=== PATIENT | female | born 1990 | race American Indian/Alaskan Native ===

== ENCOUNTER 2016-08-02 12:49 | Outpatient (CLI) | payer MEDICAID ==
[2016-08-02] MEDS ORDERED: LACTATED RINGERS 500 ML IV ONE (15:56)
== END 2016-08-02 15:01 | disposition home or self-care (01) ==
LOC: LAB 12:49 → TRG 14:10 → LAB 15:01
PROVIDERS: ATTEND Obstetrics & Gynecology
DX: O36.0120 Maternal care for anti-D [Rh] antibodies, second trimester, not applicable or unspecified (principal); Z3A.27 27 weeks gestation of pregnancy
CPT/HCPCS: 86850; 86900; 86901; 96372; J2790

== ENCOUNTER 2016-08-16 16:32 | Inpatient (IN) | payer MEDICAID ==
--- NOTE | 2016-08-16 17:02 | History and Physical Report ---
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 Essential history is received a call from the [employer] office about above. Patient with nausea vomiting, history of diabetes and hypertension and noncompliance, oral history of elevated temperature no documentation. Review of clinic chart shows elevated blood pressures in the clinic with range ~ 130's-170's/70's-110's. 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 denies: smoking, alcohol abuse, prescription drug abuse, IV drug use - Obstetrical History Expected Date of Delivery: 10/26/16 Actual Gestation: 29 Week(s) 6 Day(s) : 3 Para: 1 Medications and Allergies Allergies Allergy/AdvReac Type Severity Reaction Status Date / Time No Known Allergies Allergy Unverified 08/02/16 14:48 Review of Systems Constitutional: no chills Cardiovascular: high blood pressure, no chest pain, no syncope, no lightheadedness, no shortness of breath, no dyspnea on exertion Respiratory: no shortness of breath, no dyspnea on exertion Gastrointestinal: nausea, vomiting, no abdominal pain, no diarrhea Genitourinary: no vaginal bleeding, no vaginal discharge, no leakage of fluid - Physical Exam Cardiovascular: Regular rate, Normal S1, Normal S2 Lungs: Positive: Clear to auscultation, Normal air movement Abdomen: Positive: normal appearance, soft. Negative: distention, tenderness, guarding, rigidity Genitourinary (Female): Positive: normal external genitalia Uterus: Positive: enlarged (EFW ~ 2500) Adnexa: both: normal Extremities: Positive: normal Results All other labs normal. Assessment and Plan A: 26 y/o at 29+6 with N/V -Cat 1 tracing Issues -DM 2 -Oral history of gastroparesis -CHTN -Obesity -Prior C-S # 1 -Desires tubal ligation -RH neg s/p Rhogam 08/02 Meds: -Labetalol 300mg BID -Insulin 36N32R/26N28R P: -Admit -Start 24-hour urine protein collection -Obtain HELLP labs -Will restart outpatient medications -Antiemetics -Obtain growth and BPP (last in M visit 1 week ago) -[facility] - Patient Problems (1) 29 to 30 weeks gestation of Current Visit: Yes Status: Acute (2) Hypertension affecting in third trimester Current Visit: Yes Status: Acute (3) Pregestational diabetes mellitus, modified White class B Current Visit: Yes Status: Acute (4) Maternal morbid obesity in third trimester, antepartum Current Visit: Yes Status: Acute
[2016-08-16] MEDS ORDERED: TYLENOL PO PRN (17:20)
[2016-08-16] MEDS ORDERED: SODIUM CHLORIDE FLUSH SYRINGE 10 ML IV PRN (17:20)
[2016-08-16] MEDS ORDERED: ZOFRAN IV PRN (17:20)
[2016-08-16] MEDS ORDERED: COLACE PO PRN (17:20)
[2016-08-16] MEDS ORDERED: APRESOLINE IV PRN (17:29)
[2016-08-16] MEDS ORDERED: D50W (25GM) IV PRN (17:43)
[2016-08-16] MEDS ORDERED: MAGNESIUM SULFATE 4GM/100ML 100 ML IV ONE (17:44)
[2016-08-16] MEDS ORDERED: MAGNESIUM SULFATE 40GM/1000ML 1,000 ML IV NR (18:00)
[2016-08-16] MEDS ORDERED: LACTATED RINGERS 1,000 ML IV SCH (18:00)
[2016-08-16] MEDS ORDERED: NORMODYNE IV PRN (18:29)
[2016-08-16] MEDS ORDERED: LACTATED RINGERS 1,000 ML ONE ×2 (19:00→19:11)
[2016-08-16 19:40] LABS: Amylase 153 units/L (27-131); Lipase 154 units/L (13-60)
[2016-08-16 19:44] LABS: Alanine Aminotransferase 16 units/L (7-56); Albumin 3.8 g/dL (3.9-5); Albumin/Globulin Ratio 0.9 %; Alkaline Phosphatase 119 units/L (35-129); Bilirubin,Total 1.2 mg/dL (0.1-1.2); Blood Urea Nitrogen 15 mg/dL (7-17); Calcium 10.1 mg/dL (8.4-10.2); Carbon Dioxide 14 mmol/L (22-30); Glucose 299 mg/dL (65-100); Potassium 3.9 mmol/L (3.6-5.0); Sodium 137 mmol/L (137-145); Total Protein 8.1 g/dL (6.3-8.2)
[2016-08-16 19:49] LABS: Anion Gap 32 mmol/L
[2016-08-16 19:52] LABS: Hematocrit 43.8 % (30.3-42.9); Hemoglobin 14.4 gm/dl (10.1-14.3); Mean Corpuscular HGB Conc 33 % (30-34); Mean Corpuscular Hemoglobin 28 pg (28-32); Mean Corpuscular Volume 86 fl (79-97); Platelet Count 313 K/mm3 (140-440); Red Blood Count 5.11 M/mm3 (3.65-5.03); Red Cell Distribution Width 13.7 % (13.2-15.2); White Blood Count 13.7 K/mm3 (4.5-11.0)
[2016-08-16] MEDS ORDERED: NORMODYNE PO SCH (22:00)
[2016-08-16] MEDS: ALUM-MAG HYDROX-SIMETH 200-200-20MG/5ML PO PRN (22:08)
[2016-08-16] MEDS: NORMODYNE PO SCH (22:09)
[2016-08-16] MEDS: INFUVITE IV SCH (22:28)
[2016-08-16] MEDS: LACTATED RINGERS IV SCH (22:28)
[2016-08-16] MEDS: REGLAN IV SCH ×2 (23:38→23:43)
[2016-08-16] MEDS: AMBIEN PO SCH (23:39)
[2016-08-16] MEDS: PHENERGAN PR SCH ×2 (23:40→23:42)
[2016-08-17] MEDS: PHENERGAN PR SCH ×2 (06:16→17:39)
--- NOTE | 2016-08-17 07:50 | Progress Note ---
Assessment and Plan A: 26 y/o at 30 wks with N/V -No N/V this AM -BPP 03/06 (08/16/16) Issues -DM 2 -Oral history of gastroparesis -CHTN -Obesity -Prior C-S # 1 -Desires tubal ligation -RH neg s/p Rhogam 08/02 -Elevated Amylase and Lipase - Likely due to N/V ??Pancreatitis unlikely Meds: -Labetalol 300mg BID -Insulin 36N32R/26N28R P: -Complete 24-hour urine protein -Continue present care - Patient Problems (1) 29 to 30 weeks gestation of Current Visit: Yes Status: Acute (2) Hypertension affecting in third trimester Current Visit: Yes Status: Acute (3) Pregestational diabetes mellitus, modified White class B Current Visit: Yes Status: Acute (4) Maternal morbid obesity in third trimester, antepartum Current Visit: Yes Status: Acute Subjective - Subjective Date of service: 08/17/16 Principal diagnosis: IUP at 30 wks, CHTN, DM 2 and N/V Interval history: Patient seen and examined, stable and doing better. Denies nausea vomiting this morning, sugar elevated but she was given apple juice in error BP at acceptable level Patient reports: new complaints, movement normal, no loss of fluid, no vaginal bleeding, no contractions Objective - Vital Signs Vital Signs: Vital Signs - 12hr 08/16/16 08/16/16 08/16/16 19:48 19:58 20:09 Pulse Rate 106 H 100 H 102 H Blood Pressure 187/106 170/90 147/95 O2 Sat by Pulse Oximetry 08/16/16 08/16/16 08/16/16 20:18 20:28 20:38 Pulse Rate 106 H 104 H 114 H Blood Pressure 152/96 157/96 145/90 O2 Sat by Pulse Oximetry 08/16/16 08/16/16 08/16/16 20:48 20:58 21:08 Pulse Rate 120 H 123 H 96 H Blood Pressure 143/89 144/89 148/94 O2 Sat by Pulse Oximetry 08/16/16 08/16/16 08/16/16 21:18 21:29 21:38 Pulse Rate 133 H 116 H 121 H Blood Pressure 159/111 184/120 204/131 O2 Sat by Pulse Oximetry 08/16/16 08/16/16 08/16/16 21:48 21:58 22:08 Pulse Rate 110 H 108 H 122 H Blood Pressure 214/132 218/118 212/116 O2 Sat by Pulse Oximetry 08/16/16 08/16/16 08/16/16 22:14 22:18 22:20 Pulse Rate 112 H 120 H 120 H Blood Pressure 185/106 167/101 167/101 O2 Sat by Pulse Oximetry 08/16/16 08/16/16 08/16/16 22:28 22:39 22:49 Pulse Rate 118 H 120 H 116 H Blood Pressure 173/105 148/102 163/102 O2 Sat by Pulse Oximetry 08/16/16 08/16/16 08/16/16 22:58 23:08 23:48 Pulse Rate 126 H 123 H 123 H Blood Pressure 158/99 163/101 155/95 O2 Sat by Pulse Oximetry 08/16/16 08/17/16 08/17/16 23:58 00:08 00:18 Pulse Rate 113 H 121 H 112 H Blood Pressure 139/88 146/77 135/77 O2 Sat by Pulse Oximetry 08/17/16 08/17/16 08/17/16 00:29 00:34 00:38 Pulse Rate 112 H 118 H 114 H Blood Pressure 123/73 119/64 O2 Sat by Pulse 98 98 Oximetry 08/17/16 08/17/16 08/17/16 00:39 00:44 00:48 Pulse Rate 110 H 120 H 122 H Blood Pressure 119/62 O2 Sat by Pulse 98 98 Oximetry 08/17/16 08/17/16 08/17/16 00:49 00:54 00:58 Pulse Rate 114 H 123 H 109 H Blood Pressure 133/78 O2 Sat by Pulse 98 98 Oximetry 08/17/16 08/17/16 08/17/16 00:59 01:04 01:09 Pulse Rate 113 H 120 H 117 H Blood Pressure O2 Sat by Pulse 98 98 97 Oximetry 08/17/16 08/17/16 08/17/16 01:10 01:14 01:16 Pulse Rate 110 H 112 H 115 H Blood Pressure 119/81 132/91 O2 Sat by Pulse 98 Oximetry 08/17/16 08/17/16 08/17/16 01:19 01:24 01:29 Pulse Rate 113 H 119 H 118 H Blood Pressure O2 Sat by Pulse 98 98 98 Oximetry 08/17/16 08/17/16 08/17/16 01:34 01:39 01:44 Pulse Rate 118 H 119 H 117 H Blood Pressure O2 Sat by Pulse 98 98 98 Oximetry 08/17/16 08/17/16 08/17/16 01:49 01:54 02:16 Pulse Rate 122 H 118 H 116 H Blood Pressure 118/70 O2 Sat by Pulse 98 98 Oximetry 08/17/16 08/17/16 08/17/16 02:24 02:29 02:35 Pulse Rate 123 H 117 H 124 H Blood Pressure O2 Sat by Pulse 99 100 98 Oximetry 08/17/16 08/17/16 08/17/16 02:40 02:45 02:50 Pulse Rate 123 H 121 H 120 H Blood Pressure O2 Sat by Pulse 99 99 99 Oximetry 08/17/16 08/17/16 08/17/16 02:55 03:00 03:05 Pulse Rate 120 H 116 H 119 H Blood Pressure O2 Sat by Pulse 99 99 99 Oximetry 08/17/16 08/17/16 08/17/16 03:10 03:15 03:20 Pulse Rate 131 H 114 H 121 H Blood Pressure 125/86 O2 Sat by Pulse 99 98 99 Oximetry 08/17/16 08/17/16 08/17/16 03:25 03:30 03:35 Pulse Rate 123 H 121 H 127 H Blood Pressure O2 Sat by Pulse 99 99 99 Oximetry 08/17/16 08/17/16 08/17/16 03:40 03:45 03:50 Pulse Rate 118 H 124 H 121 H Blood Pressure O2 Sat by Pulse 99 98 99 Oximetry 08/17/16 08/17/16 08/17/16 03:55 04:00 04:05 Pulse Rate 115 H 120 H 118 H Blood Pressure O2 Sat by Pulse 99 99 99 Oximetry 08/17/16 08/17/16 08/17/16 04:10 04:15 04:20 Pulse Rate 117 H 122 H 126 H Blood Pressure 132/88 O2 Sat by Pulse 99 98 98 Oximetry 08/17/16 08/17/16 08/17/16 04:25 04:30 04:35 Pulse Rate 117 H 121 H 121 H Blood Pressure O2 Sat by Pulse 99 99 99 Oximetry 01/08/17/16 08/17/16 04:40 04:45 04:50 Pulse Rate 116 H 114 H 119 H Blood Pressure O2 Sat by Pulse 99 98 98 Oximetry 08/17/16 08/17/16 08/17/16 04:55 05:00 05:05 Pulse Rate 112 H 121 H 118 H Blood Pressure O2 Sat by Pulse 98 98 98 Oximetry 08/17/16 08/17/16 08/17/16 05:10 05:15 05:20 Pulse Rate 113 H 112 H 113 H Blood Pressure 127/78 O2 Sat by Pulse 98 98 98 Oximetry 08/17/16 08/17/16 08/17/16 05:25 05:30 05:35 Pulse Rate 113 H 114 H 116 H Blood Pressure O2 Sat by Pulse 98 98 98 Oximetry 08/17/16 08/17/16 08/17/16 05:40 05:45 05:50 Pulse Rate 116 H 111 H 111 H Blood Pressure O2 Sat by Pulse 99 97 98 Oximetry 08/17/16 08/17/16 08/17/16 05:55 06:00 06:05 Pulse Rate 120 H 127 H 116 H Blood Pressure O2 Sat by Pulse 98 99 99 Oximetry 08/17/16 08/17/16 08/17/16 06:10 06:15 06:16 Pulse Rate 119 H 112 H 114 H Blood Pressure 139/86 O2 Sat by Pulse 99 98 Oximetry 08/17/16 08/17/16 08/17/16 06:20 06:25 06:27 Pulse Rate 112 H 114 H 114 H Blood Pressure O2 Sat by Pulse 98 97 92 Oximetry 08/17/16 08/17/16 08/17/16 07:06 07:11 07:15 Pulse Rate 110 H 109 H 108 H Blood Pressure 141/95 O2 Sat by Pulse 98 98 Oximetry 08/17/16 08/17/16 08/17/16 07:16 07:21 07:26 Pulse Rate 113 H 113 H 112 H Blood Pressure O2 Sat by Pulse 98 99 98 Oximetry 08/17/16 08/17/16 08/17/16 07:31 07:36 07:41 Pulse Rate 121 H 112 H 109 H Blood Pressure O2 Sat by Pulse 98 98 98 Oximetry - Exam Abdomen: Present: normal appearance, soft. Absent: distention, tenderness, guarding, rigidity Uterus: Absent: tenderness FHR: category 1 - Labs Labs: Abnormal Labs 08/16/16 08/16/16 08/16/16 18:54 18:54 19:11 WBC 13.7 H RBC 5.11 H Hgb 14.4 H Hct 43.8 H Lymph % (Auto) 12.7 L Seg Neutrophils % 85.3 H Seg Neutrophils # 11.7 H Chloride 95.0 L Carbon Dioxide 14 L Creatinine 0.5 L Glucose 299 H POC Glucose Magnesium Albumin 3.8 L Amylase 153 H Lipase 154 H 08/16/16 08/17/16 08/17/16 21:25 06:01 06:30 WBC RBC Hgb Hct Lymph % (Auto) Seg Neutrophils % Seg Neutrophils # Chloride Carbon Dioxide Creatinine Glucose POC Glucose 223 H 396 H Magnesium 5.2 H Albumin Amylase Lipase Laboratory Results - last 24 hr 08/16/16 08/16/16 08/16/16 18:54 18:54 18:54 WBC RBC Hgb Hct MCV MCH MCHC RDW Plt Count Lymph % (Auto) [place] % (Auto) Eos % (Auto) Baso % (Auto) Lymph # [place] # Eos # Baso # Seg Neutrophils % Seg Neutrophils # Sodium 137 Potassium 3.9 Chloride 95.0 L Carbon Dioxide 14 L Anion Gap 32 BUN 15 Creatinine 0.5 L Estimated GFR > 60 BUN/Creatinine Ratio 30.00 Glucose 299 H POC Glucose Calcium 10.1 Magnesium 1.9 Total Bilirubin 1.2 AST 23 ALT 16 Alkaline Phosphatase 119 Total Protein 8.1 Albumin 3.8 L Albumin/Globulin Ratio 0.9 Amylase 153 H Lipase 154 H Hepatitis A IgM Ab Hep Bs Antigen Hep B Core IgM Ab Hepatitis C Antibody Blood Type Antibody Screen Antibody Identification 08/16/16 08/16/16 08/16/16 19:11 19:11 19:11 WBC 13.7 H RBC 5.11 H Hgb 14.4 H Hct 43.8 H MCV 86 MCH 28 MCHC 33 RDW 13.7 Plt Count 313 Lymph % (Auto) 12.7 L [place] % (Auto) 2.0 Eos % (Auto) 0.0 Baso % (Auto) 0.0 Lymph # 1.7 [place] # 0.3 Eos # 0.0 Baso # 0.0 Seg Neutrophils % 85.3 H Seg Neutrophils # 11.7 H Sodium Potassium Chloride Carbon Dioxide Anion Gap BUN Creatinine Estimated GFR BUN/Creatinine Ratio Glucose POC Glucose Calcium Magnesium Total Bilirubin AST ALT Alkaline Phosphatase Total Protein Albumin Albumin/Globulin Ratio Amylase Lipase Hepatitis A IgM Ab -1 Hep Bs Antigen Non-reactive Hep B Core IgM Ab Non-reactive Hepatitis C Antibody Non-reactive Blood Type O NEGATIVE Antibody Screen Positive Antibody Identification Anti-D (Passively Aquired) 08/16/16 08/17/16 08/17/16 21:25 06:01 06:30 WBC RBC Hgb Hct MCV MCH MCHC RDW Plt Count Lymph % (Auto) [place] % (Auto) Eos % (Auto) Baso % (Auto) Lymph # [place] # Eos # Baso # Seg Neutrophils % Seg Neutrophils # Sodium Potassium Chloride Carbon Dioxide Anion Gap BUN Creatinine Estimated GFR BUN/Creatinine Ratio Glucose POC Glucose 223 H 396 H Calcium Magnesium 5.2 H Total Bilirubin AST ALT Alkaline Phosphatase Total Protein Albumin Albumin/Globulin Ratio Amylase Lipase Hepatitis A IgM Ab Hep Bs Antigen Hep B Core IgM Ab Hepatitis C Antibody Blood Type Antibody Screen Antibody Identification
--- NOTE | 2016-08-17 08:09 | Event Note ---
Date: 08/17/16 BP appears better controlled at this time. Will D/C magnesium for now
[2016-08-17] MEDS: NORMODYNE PO SCH ×2 (09:51→21:58)
--- NOTE | 2016-08-17 10:16 | Ultrasound Report ---
BIOPHYSICAL PROFILE: 2 - breathing movements 2 - movements 2 - posture and tone 2 - Qualitative amniotic fluid volume 8 - TOTAL SCORE OF POSSIBLE 8 Heart Rate (bpm) 159
--- NOTE | 2016-08-17 10:35 | Ultrasound Report ---
OB ULTRASOUND: TECHNIQUE: Transabdominal ultrasound with Doppler interrogation. Position: cephalic Amniotic Fluid: WNL (7-24 cm) MANAS = 22.4 cm Placenta: anterior, Rt. lateral Placental Grade: I Heart Rate: 159 BPM Cervical length: Per N/A cm (Normal > 3 cm) NEUROANATOMY VISUALIZED: Choroid Plexus Lateral Ventricle ANATOMY VISUALIZED: Stomach Kidneys Bladder Diaphragm 4 Chamber Heart Heart 3 Vessel Cord Abd. Cord Insert SPINE VISUALIZED: Longitudinal Transverse The following are not demonstrated due to maternal body habitus or lie: CM and cerebellum. BPD: 7.2 cm = 28 w 5 d HC: 27.5 cm = 30 w 0 d AC: 26.0 cm = 30 w 1 d FL: 5.6 cm = 29 w 3 d HC/AC Ratio: 1.06 Cephalic Index: 76.3 Estimated Weight: 1457 grams Clinical age = 29 w 6 d EDC: 10-26-16 US Gest. Age = 29 w 4 d EDC: 10-28-16
[2016-08-17] MEDS: ALUM-MAG HYDROX-SIMETH 200-200-20MG/5ML PO PRN (10:56)
[2016-08-17] MEDS: REGLAN IV SCH ×3 (15:54→17:33)
[2016-08-17 21:59] LABS: Urine Drugs of Abuse Note Disclamer
[2016-08-17 22:36] LABS: Bilirubin,Urine NEG (Negative); Blood,Urine LG (Negative); Ketones,Urine 80 mg/dL (Negative); Leukocyte Esterase,Urine NEG (Negative); Mucus,Urine FEW /HPF; Nitrite,Urine NEG (Negative); Urobilinogen,Urine < 2.0 mg/dL (<2.0)
--- NOTE | 2016-08-18 06:43 | Event Note ---
Date: 08/18/16 24 hr urine protein is ~ 870 mg NB: Labetalol was increaed to 300mg TID with better BP control noted
[2016-08-18] MEDS: INFUVITE IV SCH ×2 (08:38→18:03)
[2016-08-18] MEDS: LACTATED RINGERS IV SCH ×2 (08:38→18:03)
--- NOTE | 2016-08-18 09:04 | Progress Note ---
Assessment and Plan - Patient Problems (1) Hypertension affecting in third trimester Diagnosis Date: 08/18/16 Current Visit: Yes Status: Acute (2) Pregestational diabetes mellitus, modified White class B Diagnosis Date: 08/18/16 Current Visit: Yes Status: Acute (3) 30 weeks gestation of Diagnosis Date: 08/18/16 Current Visit: Yes Status: Acute Plan to address problem: A: IUP @ 30 1/7 weeks Chronic hypertension - on Labetolol 300mg BID Superimposed preeclampsia Class B DM - stable P: Continue present management Awaiting AMFM consultation Subjective - Subjective Date of service: 08/18/16 Principal diagnosis: IUP at 30 1/7 weeks, CHTN, DM 2 and N/V Interval history: Pt is feeling better, denies further nausea or vomiting. Tolerating a liquid diet. She also denies contractions or bleeding. +FM Patient reports: movement normal, no new complaints, no loss of fluid, no vaginal bleeding, no contractions Objective - Vital Signs Vital Signs: Vital Signs - 12hr 08/17/16 08/17/16 08/17/16 21:13 21:14 21:18 Temperature Pulse Rate 111 H 111 H 105 H Pulse Rate [ Right From Monitor] Respiratory Rate Blood Pressure 141/74 Blood Pressure [Left Arm] O2 Sat by Pulse 99 99 Oximetry 08/17/16 08/17/16 08/17/16 21:23 21:28 21:33 Temperature Pulse Rate 95 H 97 H 111 H Pulse Rate [ Right From Monitor] Respiratory Rate Blood Pressure Blood Pressure [Left Arm] O2 Sat by Pulse 99 99 99 Oximetry 08/17/16 08/17/16 08/17/16 21:38 21:42 21:43 Temperature Pulse Rate 106 H 98 H 97 H Pulse Rate [ Right From Monitor] Respiratory Rate Blood Pressure 137/79 Blood Pressure [Left Arm] O2 Sat by Pulse 99 99 Oximetry 08/17/16 08/17/16 08/17/16 21:48 21:53 21:58 Temperature Pulse Rate 119 H 114 H 101 H Pulse Rate [ Right From Monitor] Respiratory Rate Blood Pressure 137/79 Blood Pressure [Left Arm] O2 Sat by Pulse 98 99 99 Oximetry 08/17/16 08/17/16 08/17/16 22:12 22:42 23:12 Temperature Pulse Rate 107 H 100 H 115 H Pulse Rate [ Right From Monitor] Respiratory Rate Blood Pressure 138/93 142/95 137/89 Blood Pressure [Left Arm] O2 Sat by Pulse Oximetry 08/17/16 08/18/16 08/18/16 23:42 00:12 00:44 Temperature Pulse Rate 121 H 106 H 108 H Pulse Rate [ Right From Monitor] Respiratory Rate Blood Pressure 136/90 144/99 130/76 Blood Pressure [Left Arm] O2 Sat by Pulse Oximetry 08/18/16 08/18/16 08/18/16 01:12 01:42 05:42 Temperature Pulse Rate 103 H 96 H 99 H Pulse Rate [ Right From Monitor] Respiratory Rate Blood Pressure 114/65 118/68 120/68 Blood Pressure [Left Arm] O2 Sat by Pulse Oximetry 08/18/16 08/18/16 08/18/16 06:12 06:42 07:12 Temperature Pulse Rate 107 H 95 H 95 H Pulse Rate [ Right From Monitor] Respiratory Rate Blood Pressure 121/76 150/93 162/89 Blood Pressure [Left Arm] O2 Sat by Pulse Oximetry 08/18/16 08/18/16 08/18/16 07:42 08:31 08:32 Temperature Pulse Rate 102 H 99 H 89 Pulse Rate [ Right From Monitor] Respiratory Rate Blood Pressure 143/88 178/104 Blood Pressure [Left Arm] O2 Sat by Pulse 99 Oximetry 08/18/16 08/18/16 08/18/16 08:33 08:36 08:41 Temperature Pulse Rate 93 H 101 H 87 Pulse Rate [ Right From Monitor] Respiratory Rate Blood Pressure 157/98 Blood Pressure [Left Arm] O2 Sat by Pulse 99 98 Oximetry 08/18/16 08/18/16 08/18/16 08:46 08:51 08:55 Temperature 97.1 F L Pulse Rate 98 H 96 H Pulse Rate [ 85 Right From Monitor] Respiratory 20 Rate Blood Pressure Blood Pressure 157/98 [Left Arm] O2 Sat by Pulse 98 98 Oximetry 08/18/16 08/18/16 08:56 09:01 Temperature Pulse Rate 101 H 88 Pulse Rate [ Right From Monitor] Respiratory Rate Blood Pressure Blood Pressure [Left Arm] O2 Sat by Pulse 98 98 Oximetry - Exam Lungs: Clear to auscultation Abdomen: Present: normal appearance, soft FHR: category 1 Uterine Contraction Monitor Mode: External - Labs Labs: Abnormal Labs 08/16/16 08/16/1617 17:20 17:20 18:54 WBC RBC Hgb Hct Lymph % (Auto) Seg Neutrophils % Seg Neutrophils # Chloride 95.0 L Carbon Dioxide 14 L Creatinine 0.5 L Glucose 299 H POC Glucose Magnesium Albumin 3.8 L Amylase Lipase Urine WBC (Auto) 20.0 H Ur Total Protein 24 Hr 869.50 H Urine Total Protein 37 H 08/16/16 08/16/16 08/16/16 18:54 19:11 21:25 WBC 13.7 H RBC 5.11 H Hgb 14.4 H Hct 43.8 H Lymph % (Auto) 12.7 L Seg Neutrophils % 85.3 H Seg Neutrophils # 11.7 H Chloride Carbon Dioxide Creatinine Glucose POC Glucose 223 H Magnesium Albumin Amylase 153 H Lipase 154 H Urine WBC (Auto) Ur Total Protein 24 Hr Urine Total Protein 08/17/16 08/17/16 08/17/16 06:01 06:30 10:35 WBC RBC Hgb Hct Lymph % (Auto) Seg Neutrophils % Seg Neutrophils # Chloride Carbon Dioxide Creatinine Glucose POC Glucose 396 H 303 H Magnesium 5.2 H Albumin Amylase Lipase Urine WBC (Auto) Ur Total Protein 24 Hr Urine Total Protein 08/17/16 08/17/16 08/17/16 12:07 15:52 17:11 WBC RBC Hgb Hct Lymph % (Auto) Seg Neutrophils % Seg Neutrophils # Chloride Carbon Dioxide Creatinine Glucose POC Glucose 316 H 234 H 244 H Magnesium Albumin Amylase Lipase Urine WBC (Auto) Ur Total Protein 24 Hr Urine Total Protein 08/17/16 08/18/16 08/18/16 20:57 03:14 07:45 WBC RBC Hgb Hct Lymph % (Auto) Seg Neutrophils % Seg Neutrophils # Chloride Carbon Dioxide Creatinine Glucose POC Glucose 196 H 115 H 145 H Magnesium Albumin Amylase Lipase Urine WBC (Auto) Ur Total Protein 24 Hr Urine Total Protein Laboratory Results - last 24 hr 08/16/16 08/16/16 08/17/16 17:20 17:20 10:35 POC Glucose 303 H Urine Color Yellow Urine Turbidity Clear Urine pH 5.0 Ur Specific Busy 1.025 Urine Protein 30 mg/dl Urine Glucose (UA) >=500 Urine Ketones 80 Urine Blood Lg Urine Nitrite Neg Urine Bilirubin Neg Urine Urobilinogen < 2.0 Ur Leukocyte Esterase Neg Urine WBC (Auto) 20.0 H Urine RBC (Auto) 15.0 Urine Mucus Few Urine Yeast (Budding) Few Urine Total Volume 2350 Ur Total Protein 24 Hr 869.50 H Urine Total Protein 37 H Urine Opiates Screen Presumptive negative Urine Methadone Screen Presumptive negative Ur Barbiturates Screen Presumptive negative Ur Phencyclidine Scrn Presumptive negative Ur Amphetamines Screen Presumptive negative U Benzodiazepines Scrn Presumptive negative Urine Cocaine Screen Presumptive negative U Marijuana (THC) Screen Presumptive negative Drugs of Abuse Note Disclamer 08/17/16 08/17/16 08/17/16 12:07 15:52 17:11 POC Glucose 316 H 234 H 244 H Urine Color Urine Turbidity Urine pH Ur Specific Busy Urine Protein Urine Glucose (UA) Urine Ketones Urine Blood Urine Nitrite Urine Bilirubin Urine Urobilinogen Ur Leukocyte Esterase Urine WBC (Auto) Urine RBC (Auto) Urine Mucus Urine Yeast (Budding) Urine Total Volume Ur Total Protein 24 Hr Urine Total Protein Urine Opiates Screen Urine Methadone Screen Ur Barbiturates Screen Ur Phencyclidine Scrn Ur Amphetamines Screen U Benzodiazepines Scrn Urine Cocaine Screen U Marijuana (THC) Screen Drugs of Abuse Note 08/17/16 08/18/16 08/18/16 20:57 03:14 07:45 POC Glucose 196 H 115 H 145 H Urine Color Urine Turbidity Urine pH Ur Specific Busy Urine Protein Urine Glucose (UA) Urine Ketones Urine Blood Urine Nitrite Urine Bilirubin Urine Urobilinogen Ur Leukocyte Esterase Urine WBC (Auto) Urine RBC (Auto) Urine Mucus Urine Yeast (Budding) Urine Total Volume Ur Total Protein 24 Hr Urine Total Protein Urine Opiates Screen Urine Methadone Screen Ur Barbiturates Screen Ur Phencyclidine Scrn Ur Amphetamines Screen U Benzodiazepines Scrn Urine Cocaine Screen U Marijuana (THC) Screen Drugs of Abuse Note
[2016-08-18] MEDS: PHENERGAN PR SCH ×5 (12:13→18:30)
[2016-08-18] MEDS: REGLAN IV SCH ×4 (12:16→18:26)
[2016-08-18] MEDS: NORMODYNE PO SCH ×3 (12:21→20:43)
[2016-08-18] MEDS: PRENATAL VITAMIN PO SCH ×2 (12:34→12:35)
[2016-08-18] MEDS ORDERED: LACTATED RINGERS 1,000 ML ONE (20:25)
[2016-08-18] MEDS: LACTATED RINGERS 1,000 ML IV SCH (20:30)
[2016-08-18] MEDS: AMBIEN PO SCH (21:59)
[2016-08-18] MEDS ORDERED: BRETHINE SUB-Q ONE (22:17)
[2016-08-18] MEDS ORDERED: BRETHINE ONE (22:17)
[2016-08-18] MEDS: BRETHINE SUB-Q SCH ×2 (22:46→23:27)
[2016-08-19] MEDS: PHENERGAN PR SCH ×3 (01:33→18:42)
[2016-08-19] MEDS: REGLAN IV SCH ×4 (01:35→21:58)
[2016-08-19] MEDS: LACTATED RINGERS 1,000 ML IV SCH ×3 (02:17→22:01)
[2016-08-19] MEDS: NORMODYNE PO SCH ×3 (06:39→21:04)
[2016-08-19] MEDS: PRENATAL VITAMIN PO SCH (10:31)
--- NOTE | 2016-08-19 13:03 | Progress Note ---
Assessment and Plan Impression: 1. IUP at 30 2/7 weeks' 2. Essential hypertension with superimposed preeclampsia, severe by BP criteria 3. Type 2 IDDM 4. Gastroparesis 5. Previous C/S 6. Obesity 7. Rh negative Recommend: 1. Increase labetalol to 400 mg q8h 2. Frequent [q 6-8 hour] FHR monitoring for 30-60 min 3. BPP twice weekly 4. Repeat PIH labs q 3-4 days 5. Repeat amylase/lipase 6. Continue current insulin regimen; adjust as indicated 7. Deliver no later than 34 weeks' 8. Hold betamethasone; may need to administer if condition indicates need for sooner delivery [with expected worsening of diabetes control] 9. If discharged home, will need twice weekly maternal/ surveillance by [facility], weekly PIH labs Subjective - Subjective Date of service: 08/19/16 Principal diagnosis: IUP at 30 1/7 weeks, CHTN, DM 2 and N/V Interval history: Feeling well, fetus active; denied headache, scotomata, epigastric pain. Patient reports: movement normal, no new complaints, no loss of fluid, no vaginal bleeding, no contractions Objective - Vital Signs Vital Signs: Vital Signs - 12hr 08/19/16 08/19/16 08/19/16 00:52 00:57 01:02 Temperature Pulse Rate 104 H 102 H 107 H Pulse Rate [ Left From Monitor] Pulse Rate [ Right From Monitor] Respiratory Rate Blood Pressure Blood Pressure [Left Arm] Blood Pressure [Right Arm] O2 Sat by Pulse 98 98 99 Oximetry 08/19/16 08/19/16 08/19/16 01:07 01:12 01:14 Temperature Pulse Rate 101 H 111 H 97 H Pulse Rate [ Left From Monitor] Pulse Rate [ Right From Monitor] Respiratory Rate Blood Pressure 147/93 Blood Pressure [Left Arm] Blood Pressure [Right Arm] O2 Sat by Pulse 98 98 Oximetry 08/19/16 08/19/16 08/19/16 01:40 01:45 01:50 Temperature Pulse Rate 88 109 H 113 H Pulse Rate [ Left From Monitor] Pulse Rate [ Right From Monitor] Respiratory Rate Blood Pressure Blood Pressure [Left Arm] Blood Pressure [Right Arm] O2 Sat by Pulse 97 98 98 Oximetry 08/19/16 08/19/16 08/19/16 01:55 02:00 02:05 Temperature Pulse Rate 104 H 92 H 92 H Pulse Rate [ Left From Monitor] Pulse Rate [ Right From Monitor] Respiratory Rate Blood Pressure Blood Pressure [Left Arm] Blood Pressure [Right Arm] O2 Sat by Pulse 98 97 97 Oximetry 08/19/16 08/19/16 08/19/16 02:10 02:14 02:15 Temperature Pulse Rate 107 H 84 92 H Pulse Rate [ Left From Monitor] Pulse Rate [ Right From Monitor] Respiratory Rate Blood Pressure 158/92 Blood Pressure [Left Arm] Blood Pressure [Right Arm] O2 Sat by Pulse 98 98 Oximetry 08/19/16 08/19/16 08/19/16 02:20 02:22 02:28 Temperature Pulse Rate 109 H 85 111 H Pulse Rate [ Left From Monitor] Pulse Rate [ Right From Monitor] Respiratory Rate Blood Pressure 129/73 Blood Pressure [Left Arm] Blood Pressure [Right Arm] O2 Sat by Pulse 97 99 Oximetry 08/19/16 08/19/16 08/19/16 02:33 02:38 02:43 Temperature Pulse Rate 103 H 103 H 110 H Pulse Rate [ Left From Monitor] Pulse Rate [ Right From Monitor] Respiratory Rate Blood Pressure Blood Pressure [Left Arm] Blood Pressure [Right Arm] O2 Sat by Pulse 99 98 98 Oximetry 08/19/16 08/19/16 08/19/16 02:48 02:53 02:58 Temperature Pulse Rate 103 H 106 H 101 H Pulse Rate [ Left From Monitor] Pulse Rate [ Right From Monitor] Respiratory Rate Blood Pressure Blood Pressure [Left Arm] Blood Pressure [Right Arm] O2 Sat by Pulse 99 98 98 Oximetry 08/19/16 08/19/16 08/19/16 03:03 03:08 03:16 Temperature Pulse Rate 101 H 94 H 96 H Pulse Rate [ Left From Monitor] Pulse Rate [ Right From Monitor] Respiratory Rate Blood Pressure 140/86 Blood Pressure [Left Arm] Blood Pressure [Right Arm] O2 Sat by Pulse 98 99 Oximetry 08/19/16 08/19/16 08/19/16 03:23 03:25 03:28 Temperature 98.1 F Pulse Rate 97 H 98 H Pulse Rate [ Left From Monitor] Pulse Rate [ Right From Monitor] Respiratory 22 Rate Blood Pressure Blood Pressure [Left Arm] Blood Pressure [Right Arm] O2 Sat by Pulse 99 99 Oximetry 08/19/16 08/19/16 08/19/16 03:33 03:38 03:43 Temperature Pulse Rate 79 101 H 80 Pulse Rate [ Left From Monitor] Pulse Rate [ Right From Monitor] Respiratory Rate Blood Pressure Blood Pressure [Left Arm] Blood Pressure [Right Arm] O2 Sat by Pulse 99 99 99 Oximetry 08/19/16 08/19/16 08/19/16 03:48 03:53 03:58 Temperature Pulse Rate 96 H 80 99 H Pulse Rate [ Left From Monitor] Pulse Rate [ Right From Monitor] Respiratory Rate Blood Pressure Blood Pressure [Left Arm] Blood Pressure [Right Arm] O2 Sat by Pulse 98 99 99 Oximetry 08/19/16 08/19/16 08/19/16 04:03 04:08 04:13 Temperature Pulse Rate 92 H 88 101 H Pulse Rate [ Left From Monitor] Pulse Rate [ Right From Monitor] Respiratory Rate Blood Pressure Blood Pressure [Left Arm] Blood Pressure [Right Arm] O2 Sat by Pulse 99 99 99 Oximetry 08/19/16 08/19/16 08/19/16 04:14 04:18 04:23 Temperature Pulse Rate 88 98 H 98 H Pulse Rate [ Left From Monitor] Pulse Rate [ Right From Monitor] Respiratory Rate Blood Pressure 115/64 Blood Pressure [Left Arm] Blood Pressure [Right Arm] O2 Sat by Pulse 99 99 Oximetry 08/19/16 08/19/16 08/19/16 04:28 04:33 04:38 Temperature Pulse Rate 95 H 90 94 H Pulse Rate [ Left From Monitor] Pulse Rate [ Right From Monitor] Respiratory Rate Blood Pressure Blood Pressure [Left Arm] Blood Pressure [Right Arm] O2 Sat by Pulse 99 99 99 Oximetry 08/19/16 08/19/16 08/19/16 04:43 04:48 04:53 Temperature Pulse Rate 101 H 101 H 108 H Pulse Rate [ Left From Monitor] Pulse Rate [ Right From Monitor] Respiratory Rate Blood Pressure Blood Pressure [Left Arm] Blood Pressure [Right Arm] O2 Sat by Pulse 99 98 98 Oximetry 08/19/16 08/19/16 08/19/16 04:58 05:03 05:14 Temperature Pulse Rate 108 H 104 H 97 H Pulse Rate [ Left From Monitor] Pulse Rate [ Right From Monitor] Respiratory Rate Blood Pressure 126/79 Blood Pressure [Left Arm] Blood Pressure [Right Arm] O2 Sat by Pulse 99 98 Oximetry 08/19/16 08/19/16 08/19/16 06:20 06:22 06:25 Temperature Pulse Rate 84 76 85 Pulse Rate [ Left From Monitor] Pulse Rate [ Right From Monitor] Respiratory Rate Blood Pressure 143/89 Blood Pressure [Left Arm] Blood Pressure [Right Arm] O2 Sat by Pulse 99 98 Oximetry 08/19/16 08/19/16 08/19/16 06:30 06:35 06:39 Temperature Pulse Rate 90 91 H 76 Pulse Rate [ Left From Monitor] Pulse Rate [ Right From Monitor] Respiratory Rate Blood Pressure 143/89 Blood Pressure [Left Arm] Blood Pressure [Right Arm] O2 Sat by Pulse 98 98 Oximetry 08/19/16 08/19/16 08/19/16 06:40 06:45 06:50 Temperature Pulse Rate 81 74 90 Pulse Rate [ Left From Monitor] Pulse Rate [ Right From Monitor] Respiratory Rate Blood Pressure Blood Pressure [Left Arm] Blood Pressure [Right Arm] O2 Sat by Pulse 98 99 98 Oximetry 08/19/16 08/19/16 08/19/16 06:55 07:00 07:05 Temperature Pulse Rate 82 90 93 H Pulse Rate [ Left From Monitor] Pulse Rate [ Right From Monitor] Respiratory Rate Blood Pressure Blood Pressure [Left Arm] Blood Pressure [Right Arm] O2 Sat by Pulse 99 99 99 Oximetry 08/19/16 08/19/16 08/19/16 07:10 07:14 07:15 Temperature Pulse Rate 82 90 76 Pulse Rate [ Left From Monitor] Pulse Rate [ Right From Monitor] Respiratory Rate Blood Pressure 138/91 Blood Pressure [Left Arm] Blood Pressure [Right Arm] O2 Sat by Pulse 98 98 Oximetry 08/19/16 08/19/16 08/19/16 07:20 07:25 07:30 Temperature Pulse Rate 83 91 H 87 Pulse Rate [ Left From Monitor] Pulse Rate [ Right From Monitor] Respiratory Rate Blood Pressure Blood Pressure [Left Arm] Blood Pressure [Right Arm] O2 Sat by Pulse 99 98 99 Oximetry 08/19/16 08/19/16 08/19/16 07:35 07:40 07:45 Temperature Pulse Rate 95 H 82 86 Pulse Rate [ Left From Monitor] Pulse Rate [ Right From Monitor] Respiratory Rate Blood Pressure Blood Pressure [Left Arm] Blood Pressure [Right Arm] O2 Sat by Pulse 98 99 98 Oximetry 08/19/16 08/19/16 08/19/16 07:50 07:55 08:00 Temperature Pulse Rate 88 86 86 Pulse Rate [ Left From Monitor] Pulse Rate [ Right From Monitor] Respiratory Rate Blood Pressure Blood Pressure [Left Arm] Blood Pressure [Right Arm] O2 Sat by Pulse 98 98 98 Oximetry 08/19/16 08/19/16 08/19/16 08:05 08:06 08:10 Temperature Pulse Rate 105 H 83 93 H Pulse Rate [ Left From Monitor] Pulse Rate [ Right From Monitor] Respiratory Rate Blood Pressure 166/95 Blood Pressure [Left Arm] Blood Pressure [Right Arm] O2 Sat by Pulse 98 98 Oximetry 08/19/16 08/19/16 08/19/16 08:14 08:15 08:20 Temperature Pulse Rate 92 H 91 H 80 Pulse Rate [ Left From Monitor] Pulse Rate [ Right From Monitor] Respiratory Rate Blood Pressure 136/80 Blood Pressure [Left Arm] Blood Pressure [Right Arm] O2 Sat by Pulse 98 97 Oximetry 08/19/16 08/19/16 08/19/16 08:25 08:30 08:35 Temperature Pulse Rate 93 H 83 99 H Pulse Rate [ Left From Monitor] Pulse Rate [ Right From Monitor] Respiratory Rate Blood Pressure Blood Pressure [Left Arm] Blood Pressure [Right Arm] O2 Sat by Pulse 97 98 97 Oximetry 08/19/16 08/19/16 08/19/16 08:40 08:45 08:50 Temperature Pulse Rate 100 H 99 H 98 H Pulse Rate [ Left From Monitor] Pulse Rate [ Right From Monitor] Respiratory Rate Blood Pressure Blood Pressure [Left Arm] Blood Pressure [Right Arm] O2 Sat by Pulse 97 97 97 Oximetry 08/19/16 08/19/16 08/19/16 08:55 09:00 09:05 Temperature Pulse Rate 98 H 96 H 101 H Pulse Rate [ Left From Monitor] Pulse Rate [ Right From Monitor] Respiratory Rate Blood Pressure Blood Pressure [Left Arm] Blood Pressure [Right Arm] O2 Sat by Pulse 98 98 98 Oximetry 08/19/16 08/19/16 08/19/16 09:10 09:14 09:15 Temperature Pulse Rate 107 H 90 94 H Pulse Rate [ Left From Monitor] Pulse Rate [ Right From Monitor] Respiratory Rate Blood Pressure 137/73 Blood Pressure [Left Arm] Blood Pressure [Right Arm] O2 Sat by Pulse 97 97 Oximetry 08/19/16 08/19/16 08/19/16 09:20 09:25 09:30 Temperature Pulse Rate 103 H 101 H 96 H Pulse Rate [ Left From Monitor] Pulse Rate [ Right From Monitor] Respiratory Rate Blood Pressure Blood Pressure [Left Arm] Blood Pressure [Right Arm] O2 Sat by Pulse 97 98 98 Oximetry 08/19/16 08/19/16 08/19/16 09:35 09:40 09:45 Temperature Pulse Rate 99 H 100 H 95 H Pulse Rate [ Left From Monitor] Pulse Rate [ Right From Monitor] Respiratory Rate Blood Pressure Blood Pressure [Left Arm] Blood Pressure [Right Arm] O2 Sat by Pulse 98 98 98 Oximetry 08/19/16 08/19/16 08/19/16 09:50 09:55 10:00 Temperature Pulse Rate 98 H 100 H 95 H Pulse Rate [ Left From Monitor] Pulse Rate [ Right From Monitor] Respiratory Rate Blood Pressure Blood Pressure [Left Arm] Blood Pressure [Right Arm] O2 Sat by Pulse 98 98 98 Oximetry 08/19/16 08/19/16 08/19/16 10:05 10:14 10:45 Temperature Pulse Rate 99 H 99 H 111 H Pulse Rate [ Left From Monitor] Pulse Rate [ Right From Monitor] Respiratory Rate Blood Pressure 136/84 Blood Pressure [Left Arm] Blood Pressure [Right Arm] O2 Sat by Pulse 98 98 Oximetry 08/19/16 08/19/16 08/19/16 10:50 10:55 11:00 Temperature Pulse Rate 95 H 98 H 86 Pulse Rate [ Left From Monitor] Pulse Rate [ Right From Monitor] Respiratory Rate Blood Pressure Blood Pressure [Left Arm] Blood Pressure [Right Arm] O2 Sat by Pulse 99 99 99 Oximetry 08/19/16 08/19/16 08/19/16 11:05 11:10 11:14 Temperature Pulse Rate 106 H 108 H 93 H Pulse Rate [ Left From Monitor] Pulse Rate [ Right From Monitor] Respiratory Rate Blood Pressure 123/77 Blood Pressure [Left Arm] Blood Pressure [Right Arm] O2 Sat by Pulse 99 98 Oximetry 08/19/16 08/19/16 08/19/16 11:15 11:20 11:25 Temperature Pulse Rate 95 H 98 H 99 H Pulse Rate [ Left From Monitor] Pulse Rate [ Right From Monitor] Respiratory Rate Blood Pressure Blood Pressure [Left Arm] Blood Pressure [Right Arm] O2 Sat by Pulse 99 99 99 Oximetry 08/19/16 08/19/16 08/19/16 11:30 11:35 11:40 Temperature Pulse Rate 107 H 93 H 94 H Pulse Rate [ Left From Monitor] Pulse Rate [ Right From Monitor] Respiratory Rate Blood Pressure Blood Pressure [Left Arm] Blood Pressure [Right Arm] O2 Sat by Pulse 98 99 99 Oximetry 08/19/16 08/19/16 08/19/16 11:45 11:50 11:55 Temperature Pulse Rate 92 H 92 H 90 Pulse Rate [ Left From Monitor] Pulse Rate [ Right From Monitor] Respiratory Rate Blood Pressure Blood Pressure [Left Arm] Blood Pressure [Right Arm] O2 Sat by Pulse 99 99 99 Oximetry 08/19/16 08/19/16 08/19/16 12:00 12:05 12:10 Temperature Pulse Rate 91 H 90 89 Pulse Rate [ Left From Monitor] Pulse Rate [ Right From Monitor] Respiratory Rate Blood Pressure Blood Pressure [Left Arm] Blood Pressure [Right Arm] O2 Sat by Pulse 99 99 99 Oximetry 08/19/16 08/19/16 08/19/16 12:31 12:32 12:37 Temperature 98.3 F Pulse Rate 93 H 85 92 H Pulse Rate [ 18 L Left From Monitor] Pulse Rate [ 89 Right From Monitor] Respiratory 18 Rate Blood Pressure 177/105 166/102 Blood Pressure 166/102 [Left Arm] Blood Pressure 177/105 [Right Arm] O2 Sat by Pulse 99 97 Oximetry - Exam Narrative Exam: Afebrile; most recent BP's [1230/1235]: 166-177/102-105; abd soft, nontender; most recent FHT's nonreactive but o/w reassuring; DTR 1-2+; admission amylase/ lipase elevated - Labs Labs: Abnormal Labs 08/16/16 08/16/16 08/16/16 17:20 17:20 18:54 WBC RBC Hgb Hct Lymph % (Auto) Seg Neutrophils % Seg Neutrophils # Chloride 95.0 L Carbon Dioxide 14 L Creatinine 0.5 L Glucose 299 H POC Glucose Magnesium Albumin 3.8 L Amylase Lipase Urine WBC (Auto) 20.0 H Ur Total Protein 24 Hr 869.50 H Urine Total Protein 37 H 08/16/16 08/16/16 08/16/16 18:54 19:11 21:25 WBC 13.7 H RBC 5.11 H Hgb 14.4 H Hct 43.8 H Lymph % (Auto) 12.7 L Seg Neutrophils % 85.3 H Seg Neutrophils # 11.7 H Chloride Carbon Dioxide Creatinine Glucose POC Glucose 223 H Magnesium Albumin Amylase 153 H Lipase 154 H Urine WBC (Auto) Ur Total Protein 24 Hr Urine Total Protein 08/17/16 08/17/16 08/17/16 06:01 06:30 10:35 WBC RBC Hgb Hct Lymph % (Auto) Seg Neutrophils % Seg Neutrophils # Chloride Carbon Dioxide Creatinine Glucose POC Glucose 396 H 303 H Magnesium 5.2 H Albumin Amylase Lipase Urine WBC (Auto) Ur Total Protein 24 Hr Urine Total Protein 08/17/16 08/17/16 08/17/16 12:07 15:52 17:11 WBC RBC Hgb Hct Lymph % (Auto) Seg Neutrophils % Seg Neutrophils # Chloride Carbon Dioxide Creatinine Glucose POC Glucose 316 H 234 H 244 H Magnesium Albumin Amylase Lipase Urine WBC (Auto) Ur Total Protein 24 Hr Urine Total Protein 08/17/16 08/18/16 08/18/16 20:57 03:14 07:45 WBC RBC Hgb Hct Lymph % (Auto) Seg Neutrophils % Seg Neutrophils # Chloride Carbon Dioxide Creatinine Glucose POC Glucose 196 H 115 H 145 H Magnesium Albumin Amylase Lipase Urine WBC (Auto) Ur Total Protein 24 Hr Urine Total Protein 08/18/16 08/19/16 12:33 10:14 WBC RBC Hgb Hct Lymph % (Auto) Seg Neutrophils % Seg Neutrophils # Chloride Carbon Dioxide Creatinine Glucose POC Glucose 107 H 117 H Magnesium Albumin Amylase Lipase Urine WBC (Auto) Ur Total Protein 24 Hr Urine Total Protein Laboratory Results - last 24 hr 08/18/16 08/18/16 08/19/16 17:50 23:50 06:23 POC Glucose 89 82 93 08/19/16 08/19/16 10:14 12:36 POC Glucose 117 H 93
--- NOTE | 2016-08-19 13:06 | Progress Note ---
Assessment and Plan - Patient Problems (1) Hypertension affecting in third trimester Diagnosis Date: 08/18/16 Current Visit: Yes Status: Acute (2) Pregestational diabetes mellitus, modified White class B Diagnosis Date: 08/18/16 Current Visit: Yes Status: Acute (3) 30 weeks gestation of Diagnosis Date: 08/18/16 Current Visit: Yes Status: Acute Plan to address problem: A: 1. IUP at 30 2/7 weeks 2. Essential hypertension with superimposed preeclampsia, severe by BP criteria 3. Type 2 IDDM 4. Gastroparesis 5. Previous C/S 6. Obesity 7. Rh negative Plan: As per [facility] recommendations: 1. Increase labetalol to 400 mg q8h 2. Frequent [q 6-8 hour] FHR monitoring for 30-60 min 3. BPP twice weekly 4. Repeat PIH labs q 3-4 days 5. Repeat amylase/lipase 6. Continue current insulin regimen; adjust as indicated 7. Deliver no later than 34 weeks' 8. Hold betamethasone; may need to administer if condition indicates need for sooner delivery [with expected worsening of diabetes control] 9. If discharged home, will need twice weekly maternal/ surveillance by [facility], weekly PIH labs Subjective - Subjective Date of service: 08/19/16 Principal diagnosis: IUP at 30 2/7 weeks, CHTN, DM 2 and N/V Interval history: Pt is feeling well without complaints. Tolerating a reg diet without nausea or vomiting. She denies contractions, bleeding, headaches or blurred vision. + Patient reports: movement normal, no new complaints, no loss of fluid, no vaginal bleeding, no contractions Objective - Vital Signs Vital Signs: Vital Signs - 12hr 08/19/16 08/19/16 08/19/16 01:07 01:12 01:14 Temperature Pulse Rate 101 H 111 H 97 H Pulse Rate [ Left From Monitor] Pulse Rate [ Right From Monitor] Respiratory Rate Blood Pressure 147/93 Blood Pressure [Left Arm] Blood Pressure [Right Arm] O2 Sat by Pulse 98 98 Oximetry 08/19/16 08/19/16 08/19/16 01:40 01:45 01:50 Temperature Pulse Rate 88 109 H 113 H Pulse Rate [ Left From Monitor] Pulse Rate [ Right From Monitor] Respiratory Rate Blood Pressure Blood Pressure [Left Arm] Blood Pressure [Right Arm] O2 Sat by Pulse 97 98 98 Oximetry 08/19/16 08/19/16 08/19/16 01:55 02:00 02:05 Temperature Pulse Rate 104 H 92 H 92 H Pulse Rate [ Left From Monitor] Pulse Rate [ Right From Monitor] Respiratory Rate Blood Pressure Blood Pressure [Left Arm] Blood Pressure [Right Arm] O2 Sat by Pulse 98 97 97 Oximetry 08/19/16 08/19/16 08/19/16 02:10 02:14 02:15 Temperature Pulse Rate 107 H 84 92 H Pulse Rate [ Left From Monitor] Pulse Rate [ Right From Monitor] Respiratory Rate Blood Pressure 158/92 Blood Pressure [Left Arm] Blood Pressure [Right Arm] O2 Sat by Pulse 98 98 Oximetry 08/19/16 08/19/16 08/19/16 02:20 02:22 02:28 Temperature Pulse Rate 109 H 85 111 H Pulse Rate [ Left From Monitor] Pulse Rate [ Right From Monitor] Respiratory Rate Blood Pressure 129/73 Blood Pressure [Left Arm] Blood Pressure [Right Arm] O2 Sat by Pulse 97 99 Oximetry 08/19/16 08/19/16 08/19/16 02:33 02:38 02:43 Temperature Pulse Rate 103 H 103 H 110 H Pulse Rate [ Left From Monitor] Pulse Rate [ Right From Monitor] Respiratory Rate Blood Pressure Blood Pressure [Left Arm] Blood Pressure [Right Arm] O2 Sat by Pulse 99 98 98 Oximetry 08/19/16 08/19/16 08/19/16 02:48 02:53 02:58 Temperature Pulse Rate 103 H 106 H 101 H Pulse Rate [ Left From Monitor] Pulse Rate [ Right From Monitor] Respiratory Rate Blood Pressure Blood Pressure [Left Arm] Blood Pressure [Right Arm] O2 Sat by Pulse 99 98 98 Oximetry 08/19/16 08/19/16 08/19/16 03:03 03:08 03:16 Temperature Pulse Rate 101 H 94 H 96 H Pulse Rate [ Left From Monitor] Pulse Rate [ Right From Monitor] Respiratory Rate Blood Pressure 140/86 Blood Pressure [Left Arm] Blood Pressure [Right Arm] O2 Sat by Pulse 98 99 Oximetry 08/19/16 08/19/16 08/19/16 03:23 03:25 03:28 Temperature 98.1 F Pulse Rate 97 H 98 H Pulse Rate [ Left From Monitor] Pulse Rate [ Right From Monitor] Respiratory 22 Rate Blood Pressure Blood Pressure [Left Arm] Blood Pressure [Right Arm] O2 Sat by Pulse 99 99 Oximetry 08/19/16 08/19/16 08/19/16 03:33 03:38 03:43 Temperature Pulse Rate 79 101 H 80 Pulse Rate [ Left From Monitor] Pulse Rate [ Right From Monitor] Respiratory Rate Blood Pressure Blood Pressure [Left Arm] Blood Pressure [Right Arm] O2 Sat by Pulse 99 99 99 Oximetry 08/19/16 08/19/16 08/19/16 03:48 03:53 03:58 Temperature Pulse Rate 96 H 80 99 H Pulse Rate [ Left From Monitor] Pulse Rate [ Right From Monitor] Respiratory Rate Blood Pressure Blood Pressure [Left Arm] Blood Pressure [Right Arm] O2 Sat by Pulse 98 99 99 Oximetry 08/19/16 08/19/16 08/19/16 04:03 04:08 04:13 Temperature Pulse Rate 92 H 88 101 H Pulse Rate [ Left From Monitor] Pulse Rate [ Right From Monitor] Respiratory Rate Blood Pressure Blood Pressure [Left Arm] Blood Pressure [Right Arm] O2 Sat by Pulse 99 99 99 Oximetry 08/19/16 08/19/16 08/19/16 04:14 04:18 04:23 Temperature Pulse Rate 88 98 H 98 H Pulse Rate [ Left From Monitor] Pulse Rate [ Right From Monitor] Respiratory Rate Blood Pressure 115/64 Blood Pressure [Left Arm] Blood Pressure [Right Arm] O2 Sat by Pulse 99 99 Oximetry 08/19/16 08/19/16 08/19/16 04:28 04:33 04:38 Temperature Pulse Rate 95 H 90 94 H Pulse Rate [ Left From Monitor] Pulse Rate [ Right From Monitor] Respiratory Rate Blood Pressure Blood Pressure [Left Arm] Blood Pressure [Right Arm] O2 Sat by Pulse 99 99 99 Oximetry 08/19/16 08/19/16 08/19/16 04:43 04:48 04:53 Temperature Pulse Rate 101 H 101 H 108 H Pulse Rate [ Left From Monitor] Pulse Rate [ Right From Monitor] Respiratory Rate Blood Pressure Blood Pressure [Left Arm] Blood Pressure [Right Arm] O2 Sat by Pulse 99 98 98 Oximetry 08/19/16 08/19/16 08/19/16 04:58 05:03 05:14 Temperature Pulse Rate 108 H 104 H 97 H Pulse Rate [ Left From Monitor] Pulse Rate [ Right From Monitor] Respiratory Rate Blood Pressure 126/79 Blood Pressure [Left Arm] Blood Pressure [Right Arm] O2 Sat by Pulse 99 98 Oximetry 08/19/16 08/19/16 08/19/16 06:20 06:22 06:25 Temperature Pulse Rate 84 76 85 Pulse Rate [ Left From Monitor] Pulse Rate [ Right From Monitor] Respiratory Rate Blood Pressure 143/89 Blood Pressure [Left Arm] Blood Pressure [Right Arm] O2 Sat by Pulse 99 98 Oximetry 08/19/16 08/19/16 08/19/16 06:30 06:35 06:39 Temperature Pulse Rate 90 91 H 76 Pulse Rate [ Left From Monitor] Pulse Rate [ Right From Monitor] Respiratory Rate Blood Pressure 143/89 Blood Pressure [Left Arm] Blood Pressure [Right Arm] O2 Sat by Pulse 98 98 Oximetry 08/19/16 08/19/16 08/19/16 06:40 06:45 06:50 Temperature Pulse Rate 81 74 90 Pulse Rate [ Left From Monitor] Pulse Rate [ Right From Monitor] Respiratory Rate Blood Pressure Blood Pressure [Left Arm] Blood Pressure [Right Arm] O2 Sat by Pulse 98 99 98 Oximetry 08/19/16 08/19/16 08/19/16 06:55 07:00 07:05 Temperature Pulse Rate 82 90 93 H Pulse Rate [ Left From Monitor] Pulse Rate [ Right From Monitor] Respiratory Rate Blood Pressure Blood Pressure [Left Arm] Blood Pressure [Right Arm] O2 Sat by Pulse 99 99 99 Oximetry 08/19/16 08/19/16 08/19/16 07:10 07:14 07:15 Temperature Pulse Rate 82 90 76 Pulse Rate [ Left From Monitor] Pulse Rate [ Right From Monitor] Respiratory Rate Blood Pressure 138/91 Blood Pressure [Left Arm] Blood Pressure [Right Arm] O2 Sat by Pulse 98 98 Oximetry 08/19/16 08/19/16 08/19/16 07:20 07:25 07:30 Temperature Pulse Rate 83 91 H 87 Pulse Rate [ Left From Monitor] Pulse Rate [ Right From Monitor] Respiratory Rate Blood Pressure Blood Pressure [Left Arm] Blood Pressure [Right Arm] O2 Sat by Pulse 99 98 99 Oximetry 08/19/16 08/19/16 08/19/16 07:35 07:40 07:45 Temperature Pulse Rate 95 H 82 86 Pulse Rate [ Left From Monitor] Pulse Rate [ Right From Monitor] Respiratory Rate Blood Pressure Blood Pressure [Left Arm] Blood Pressure [Right Arm] O2 Sat by Pulse 98 99 98 Oximetry 08/19/16 08/19/16 08/19/16 07:50 07:55 08:00 Temperature Pulse Rate 88 86 86 Pulse Rate [ Left From Monitor] Pulse Rate [ Right From Monitor] Respiratory Rate Blood Pressure Blood Pressure [Left Arm] Blood Pressure [Right Arm] O2 Sat by Pulse 98 98 98 Oximetry 08/19/16 08/19/16 08/19/16 08:05 08:06 08:10 Temperature Pulse Rate 105 H 83 93 H Pulse Rate [ Left From Monitor] Pulse Rate [ Right From Monitor] Respiratory Rate Blood Pressure 166/95 Blood Pressure [Left Arm] Blood Pressure [Right Arm] O2 Sat by Pulse 98 98 Oximetry 08/19/16 08/19/16 08/19/16 08:14 08:15 08:20 Temperature Pulse Rate 92 H 91 H 80 Pulse Rate [ Left From Monitor] Pulse Rate [ Right From Monitor] Respiratory Rate Blood Pressure 136/80 Blood Pressure [Left Arm] Blood Pressure [Right Arm] O2 Sat by Pulse 98 97 Oximetry 08/19/16 08/19/16 08/19/16 08:25 08:30 08:35 Temperature Pulse Rate 93 H 83 99 H Pulse Rate [ Left From Monitor] Pulse Rate [ Right From Monitor] Respiratory Rate Blood Pressure Blood Pressure [Left Arm] Blood Pressure [Right Arm] O2 Sat by Pulse 97 98 97 Oximetry 08/19/16 08/19/16 08/19/16 08:40 08:45 08:50 Temperature Pulse Rate 100 H 99 H 98 H Pulse Rate [ Left From Monitor] Pulse Rate [ Right From Monitor] Respiratory Rate Blood Pressure Blood Pressure [Left Arm] Blood Pressure [Right Arm] O2 Sat by Pulse 97 97 97 Oximetry 08/19/16 08/19/16 08/19/16 08:55 09:00 09:05 Temperature Pulse Rate 98 H 96 H 101 H Pulse Rate [ Left From Monitor] Pulse Rate [ Right From Monitor] Respiratory Rate Blood Pressure Blood Pressure [Left Arm] Blood Pressure [Right Arm] O2 Sat by Pulse 98 98 98 Oximetry 08/19/16 08/19/16 08/19/16 09:10 09:14 09:15 Temperature Pulse Rate 107 H 90 94 H Pulse Rate [ Left From Monitor] Pulse Rate [ Right From Monitor] Respiratory Rate Blood Pressure 137/73 Blood Pressure [Left Arm] Blood Pressure [Right Arm] O2 Sat by Pulse 97 97 Oximetry 08/19/16 08/19/16 08/19/16 09:20 09:25 09:30 Temperature Pulse Rate 103 H 101 H 96 H Pulse Rate [ Left From Monitor] Pulse Rate [ Right From Monitor] Respiratory Rate Blood Pressure Blood Pressure [Left Arm] Blood Pressure [Right Arm] O2 Sat by Pulse 97 98 98 Oximetry 08/19/16 08/19/16 08/19/16 09:35 09:40 09:45 Temperature Pulse Rate 99 H 100 H 95 H Pulse Rate [ Left From Monitor] Pulse Rate [ Right From Monitor] Respiratory Rate Blood Pressure Blood Pressure [Left Arm] Blood Pressure [Right Arm] O2 Sat by Pulse 98 98 98 Oximetry 08/19/16 08/19/16 08/19/16 09:50 09:55 10:00 Temperature Pulse Rate 98 H 100 H 95 H Pulse Rate [ Left From Monitor] Pulse Rate [ Right From Monitor] Respiratory Rate Blood Pressure Blood Pressure [Left Arm] Blood Pressure [Right Arm] O2 Sat by Pulse 98 98 98 Oximetry 08/19/16 08/19/16 08/19/16 10:05 10:14 10:45 Temperature Pulse Rate 99 H 99 H 111 H Pulse Rate [ Left From Monitor] Pulse Rate [ Right From Monitor] Respiratory Rate Blood Pressure 136/84 Blood Pressure [Left Arm] Blood Pressure [Right Arm] O2 Sat by Pulse 98 98 Oximetry 08/19/16 08/19/16 08/19/16 10:50 10:55 11:00 Temperature Pulse Rate 95 H 98 H 86 Pulse Rate [ Left From Monitor] Pulse Rate [ Right From Monitor] Respiratory Rate Blood Pressure Blood Pressure [Left Arm] Blood Pressure [Right Arm] O2 Sat by Pulse 99 99 99 Oximetry 08/19/16 08/19/16 08/19/16 11:05 11:10 11:14 Temperature Pulse Rate 106 H 108 H 93 H Pulse Rate [ Left From Monitor] Pulse Rate [ Right From Monitor] Respiratory Rate Blood Pressure 123/77 Blood Pressure [Left Arm] Blood Pressure [Right Arm] O2 Sat by Pulse 99 98 Oximetry 08/19/16 08/19/16 08/19/16 11:15 11:20 11:25 Temperature Pulse Rate 95 H 98 H 99 H Pulse Rate [ Left From Monitor] Pulse Rate [ Right From Monitor] Respiratory Rate Blood Pressure Blood Pressure [Left Arm] Blood Pressure [Right Arm] O2 Sat by Pulse 99 99 99 Oximetry 08/19/16 08/19/16 08/19/16 11:30 11:35 11:40 Temperature Pulse Rate 107 H 93 H 94 H Pulse Rate [ Left From Monitor] Pulse Rate [ Right From Monitor] Respiratory Rate Blood Pressure Blood Pressure [Left Arm] Blood Pressure [Right Arm] O2 Sat by Pulse 98 99 99 Oximetry 08/19/16 08/19/16 08/19/16 11:45 11:50 11:55 Temperature Pulse Rate 92 H 92 H 90 Pulse Rate [ Left From Monitor] Pulse Rate [ Right From Monitor] Respiratory Rate Blood Pressure Blood Pressure [Left Arm] Blood Pressure [Right Arm] O2 Sat by Pulse 99 99 99 Oximetry 08/19/16 08/19/16 08/19/16 12:00 12:05 12:10 Temperature Pulse Rate 91 H 90 89 Pulse Rate [ Left From Monitor] Pulse Rate [ Right From Monitor] Respiratory Rate Blood Pressure Blood Pressure [Left Arm] Blood Pressure [Right Arm] O2 Sat by Pulse 99 99 99 Oximetry 08/19/16 08/19/16 08/19/16 12:31 12:32 12:37 Temperature 98.3 F Pulse Rate 93 H 85 92 H Pulse Rate [ 18 L Left From Monitor] Pulse Rate [ 89 Right From Monitor] Respiratory 18 Rate Blood Pressure 177/105 166/102 Blood Pressure 166/102 [Left Arm] Blood Pressure 177/105 [Right Arm] O2 Sat by Pulse 99 97 Oximetry 08/19/16 13:04 Temperature Pulse Rate 92 H Pulse Rate [ Left From Monitor] Pulse Rate [ Right From Monitor] Respiratory Rate Blood Pressure 166/102 Blood Pressure [Left Arm] Blood Pressure [Right Arm] O2 Sat by Pulse Oximetry - Exam Cardiovascular: Regular rate Lungs: Clear to auscultation Abdomen: Present: normal appearance, soft FHR: category 1 Uterine Contraction Monitor Mode: External Uterine Contraction Pattern: Absent - Labs Labs: Abnormal Labs 08/16/16 08/16/16 08/16/16 17:20 17:20 18:54 WBC RBC Hgb Hct Lymph % (Auto) Seg Neutrophils % Seg Neutrophils # Chloride 95.0 L Carbon Dioxide 14 L Creatinine 0.5 L Glucose 299 H POC Glucose Magnesium Albumin 3.8 L Amylase Lipase Urine WBC (Auto) 20.0 H Ur Total Protein 24 Hr 869.50 H Urine Total Protein 37 H 08/16/16 08/16/16 08/16/16 18:54 19:11 21:25 WBC 13.7 H RBC 5.11 H Hgb 14.4 H Hct 43.8 H Lymph % (Auto) 12.7 L Seg Neutrophils % 85.3 H Seg Neutrophils # 11.7 H Chloride Carbon Dioxide Creatinine Glucose POC Glucose 223 H Magnesium Albumin Amylase 153 H Lipase 154 H Urine WBC (Auto) Ur Total Protein 24 Hr Urine Total Protein 08/17/16 08/17/16 08/17/16 06:01 06:30 10:35 WBC RBC Hgb Hct Lymph % (Auto) Seg Neutrophils % Seg Neutrophils # Chloride Carbon Dioxide Creatinine Glucose POC Glucose 396 H 303 H Magnesium 5.2 H Albumin Amylase Lipase Urine WBC (Auto) Ur Total Protein 24 Hr Urine Total Protein 08/17/16 08/17/16 08/17/16 12:07 15:52 17:11 WBC RBC Hgb Hct Lymph % (Auto) Seg Neutrophils % Seg Neutrophils # Chloride Carbon Dioxide Creatinine Glucose POC Glucose 316 H 234 H 244 H Magnesium Albumin Amylase Lipase Urine WBC (Auto) Ur Total Protein 24 Hr Urine Total Protein 08/17/16 08/18/16 08/18/16 20:57 03:14 07:45 WBC RBC Hgb Hct Lymph % (Auto) Seg Neutrophils % Seg Neutrophils # Chloride Carbon Dioxide Creatinine Glucose POC Glucose 196 H 115 H 145 H Magnesium Albumin Amylase Lipase Urine WBC (Auto) Ur Total Protein 24 Hr Urine Total Protein 08/18/16 08/19/16 12:33 10:14 WBC RBC Hgb Hct Lymph % (Auto) Seg Neutrophils % Seg Neutrophils # Chloride Carbon Dioxide Creatinine Glucose POC Glucose 107 H 117 H Magnesium Albumin Amylase Lipase Urine WBC (Auto) Ur Total Protein 24 Hr Urine Total Protein Laboratory Results - last 24 hr 08/18/16 08/18/16 08/19/16 17:50 23:50 06:23 POC Glucose 89 82 93 08/19/16 08/19/16 10:14 12:36 POC Glucose 117 H 93
[2016-08-19 15:31] LABS: Hematocrit 35.7 % (30.3-42.9); Mean Corpuscular HGB Conc 34 % (30-34); Mean Corpuscular Hemoglobin 29 pg (28-32); Mean Corpuscular Volume 85 fl (79-97); Platelet Count 253 K/mm3 (140-440); Red Blood Count 4.18 M/mm3 (3.65-5.03); Red Cell Distribution Width 13.7 % (13.2-15.2); White Blood Count 8.8 K/mm3 (4.5-11.0)
[2016-08-19 15:33] LABS: Alanine Aminotransferase 24 units/L (7-56); Albumin 3.1 g/dL (3.9-5); Alkaline Phosphatase 91 units/L (35-129); Amylase 403 units/L (27-131); Bilirubin,Total 1.5 mg/dL (0.1-1.2); Blood Urea Nitrogen 12 mg/dL (7-17); Calcium 8.8 mg/dL (8.4-10.2); Carbon Dioxide 21 mmol/L (22-30); Glucose 72 mg/dL (65-100); Potassium 3.2 mmol/L (3.6-5.0); Sodium 140 mmol/L (137-145); Total Protein 6.2 g/dL (6.3-8.2)
[2016-08-19 15:56] LABS: Anion Gap 19 mmol/L
[2016-08-20] MEDS: NORMODYNE PO SCH ×3 (05:16→20:56)
[2016-08-20] MEDS: LACTATED RINGERS 1,000 ML IV SCH ×3 (05:41→22:13)
--- NOTE | 2016-08-20 10:29 | Progress Note ---
Assessment and Plan - Patient Problems (1) Hypertension affecting in third trimester Diagnosis Date: 08/18/16 Status: Acute (2) Pregestational diabetes mellitus, modified White class B Diagnosis Date: 08/18/16 Status: Acute (3) 30 weeks gestation of Diagnosis Date: 08/18/16 Status: Acute Plan to address problem: A: 1. IUP at 30 3/7 weeks 2. Essential hypertension with superimposed preeclampsia, severe by BP criteria 3. Type 2 IDDM 4. Gastroparesis 5. Previous C/S 6. Obesity 7. Rh negative 8. Hypokalemia 9. Suspect pancreatitis Plan: As per [facility] recommendations: 1. Continue Labetalol at 400 mg q8h 2. Frequent [q 6-8 hour] FHR monitoring for 30-60 min 3. BPP twice weekly 4. Repeat PIH labs q 3-4 days 5. Obtain Hospitalist consultation re: pancreatitis 6. Continue current insulin regimen; adjust as indicated 7. Replete K+ Subjective - Subjective Date of service: 08/20/16 Principal diagnosis: IUP at 30 3/7 weeks, CHTN, DM 2 and N/V Interval history: Pt is feeling well without complaints. Tolerating a reg diet without nausea or vomiting. She denies contractions, bleeding, headaches or blurred vision. +FM Patient reports: movement normal, no new complaints, no loss of fluid, no vaginal bleeding, no contractions Objective - Vital Signs Vital Signs: Vital Signs - 12hr 08/19/16 08/19/16 08/19/16 22:32 22:37 22:42 Temperature Pulse Rate 79 79 84 Pulse Rate [ Right From Monitor] Respiratory Rate Blood Pressure Blood Pressure [Right Arm] O2 Sat by Pulse 96 97 97 Oximetry 08/19/16 08/19/16 08/19/16 22:47 22:52 22:57 Temperature Pulse Rate 84 81 96 H Pulse Rate [ Right From Monitor] Respiratory Rate Blood Pressure Blood Pressure [Right Arm] O2 Sat by Pulse 97 96 96 Oximetry 08/19/16 08/19/16 08/19/16 23:02 23:05 23:07 Temperature Pulse Rate 84 93 H 124 H Pulse Rate [ Right From Monitor] Respiratory Rate Blood Pressure Blood Pressure [Right Arm] O2 Sat by Pulse 96 93 96 Oximetry 01/21/17 01/21/17 01/21/17 23:12 23:14 23:17 Temperature Pulse Rate 121 H 112 H 102 H Pulse Rate [ Right From Monitor] Respiratory Rate Blood Pressure 106/56 Blood Pressure [Right Arm] O2 Sat by Pulse 95 96 Oximetry 08/19/16 08/19/16 08/19/16 23:22 23:27 23:32 Temperature Pulse Rate 93 H 99 H 103 H Pulse Rate [ Right From Monitor] Respiratory Rate Blood Pressure Blood Pressure [Right Arm] O2 Sat by Pulse 95 96 96 Oximetry 08/19/16 08/19/16 08/19/16 23:37 23:42 23:47 Temperature Pulse Rate 101 H 102 H 93 H Pulse Rate [ Right From Monitor] Respiratory Rate Blood Pressure Blood Pressure [Right Arm] O2 Sat by Pulse 96 96 97 Oximetry 08/19/16 08/19/16 08/20/16 23:52 23:57 00:02 Temperature Pulse Rate 97 H 93 H 119 H Pulse Rate [ Right From Monitor] Respiratory Rate Blood Pressure Blood Pressure [Right Arm] O2 Sat by Pulse 97 97 96 Oximetry 08/20/16 08/20/16 08/20/16 00:07 00:12 00:14 Temperature Pulse Rate 103 H 95 H 82 Pulse Rate [ Right From Monitor] Respiratory Rate Blood Pressure 132/74 Blood Pressure [Right Arm] O2 Sat by Pulse 97 97 Oximetry 08/20/16 08/20/16 08/20/16 00:17 00:22 00:27 Temperature Pulse Rate 96 H 91 H 114 H Pulse Rate [ Right From Monitor] Respiratory Rate Blood Pressure Blood Pressure [Right Arm] O2 Sat by Pulse 97 97 97 Oximetry 08/20/16 08/20/16 08/20/16 00:32 00:37 00:42 Temperature Pulse Rate 111 H 105 H 90 Pulse Rate [ Right From Monitor] Respiratory Rate Blood Pressure Blood Pressure [Right Arm] O2 Sat by Pulse 97 98 97 Oximetry 08/20/16 08/20/16 08/20/16 00:47 00:52 00:57 Temperature Pulse Rate 103 H 98 H 91 H Pulse Rate [ Right From Monitor] Respiratory Rate Blood Pressure Blood Pressure [Right Arm] O2 Sat by Pulse 98 99 98 Oximetry 08/20/16 08/20/16 08/20/16 01:02 05:15 05:16 Temperature Pulse Rate 103 H 66 Pulse Rate [ Right From Monitor] Respiratory Rate Blood Pressure 137/78 137/78 Blood Pressure [Right Arm] O2 Sat by Pulse 99 Oximetry 08/20/16 08/20/16 08/20/16 06:14 07:14 07:58 Temperature 98.1 F Pulse Rate 75 75 86 Pulse Rate [ 83 Right From Monitor] Respiratory 18 Rate Blood Pressure 111/65 137/87 164/82 Blood Pressure 164/82 [Right Arm] O2 Sat by Pulse 98 Oximetry 08/20/16 09:14 Temperature Pulse Rate 83 Pulse Rate [ Right From Monitor] Respiratory Rate Blood Pressure 121/66 Blood Pressure [Right Arm] O2 Sat by Pulse Oximetry - Exam Cardiovascular: Regular rate Lungs: Clear to auscultation Abdomen: Present: normal appearance, soft Uterus: Present: normal FHR: category 1 Uterine Contraction Monitor Mode: External Uterine Contraction Pattern: Absent - Labs Labs: Abnormal Labs 08/16/16 08/16/16 08/16/16 17:20 17:20 18:54 WBC RBC Hgb Hct Lymph % (Auto) Seg Neutrophils % Seg Neutrophils # Potassium Chloride 95.0 L Carbon Dioxide 14 L Creatinine 0.5 L Glucose 299 H POC Glucose Magnesium Total Bilirubin AST Total Protein Albumin 3.8 L Amylase Lipase Urine WBC (Auto) 20.0 H Ur Total Protein 24 Hr 869.50 H Urine Total Protein 37 H 08/16/16 08/16/16 08/16/16 18:54 19:11 21:25 WBC 13.7 H RBC 5.11 H Hgb 14.4 H Hct 43.8 H Lymph % (Auto) 12.7 L Seg Neutrophils % 85.3 H Seg Neutrophils # 11.7 H Potassium Chloride Carbon Dioxide Creatinine Glucose POC Glucose 223 H Magnesium Total Bilirubin AST Total Protein Albumin Amylase 153 H Lipase 154 H Urine WBC (Auto) Ur Total Protein 24 Hr Urine Total Protein 08/17/16 08/17/16 08/17/16 06:01 06:30 10:35 WBC RBC Hgb Hct Lymph % (Auto) Seg Neutrophils % Seg Neutrophils # Potassium Chloride Carbon Dioxide Creatinine Glucose POC Glucose 396 H 303 H Magnesium 5.2 H Total Bilirubin AST Total Protein Albumin Amylase Lipase Urine WBC (Auto) Ur Total Protein 24 Hr Urine Total Protein 08/17/16 08/17/16 08/17/16 12:07 15:52 17:11 WBC RBC Hgb Hct Lymph % (Auto) Seg Neutrophils % Seg Neutrophils # Potassium Chloride Carbon Dioxide Creatinine Glucose POC Glucose 316 H 234 H 244 H Magnesium Total Bilirubin AST Total Protein Albumin Amylase Lipase Urine WBC (Auto) Ur Total Protein 24 Hr Urine Total Protein 08/17/16 08/18/16 08/18/16 20:57 03:14 07:45 WBC RBC Hgb Hct Lymph % (Auto) Seg Neutrophils % Seg Neutrophils # Potassium Chloride Carbon Dioxide Creatinine Glucose POC Glucose 196 H 115 H 145 H Magnesium Total Bilirubin AST Total Protein Albumin Amylase Lipase Urine WBC (Auto) Ur Total Protein 24 Hr Urine Total Protein 08/18/16 08/19/16 08/19/16 12:33 10:14 14:30 WBC RBC Hgb Hct Lymph % (Auto) Seg Neutrophils % Seg Neutrophils # Potassium 3.2 L Chloride Carbon Dioxide 21 L D Creatinine 0.5 L Glucose POC Glucose 107 H 117 H Magnesium Total Bilirubin 1.5 H AST 45 H Total Protein 6.2 L D Albumin 3.1 L Amylase 403 H Lipase Urine WBC (Auto) Ur Total Protein 24 Hr Urine Total Protein 08/19/16 08/20/16 14:30 00:05 WBC RBC Hgb Hct Lymph % (Auto) Seg Neutrophils % Seg Neutrophils # Potassium Chloride Carbon Dioxide Creatinine Glucose POC Glucose 120 H Magnesium Total Bilirubin AST Total Protein Albumin Amylase Lipase 121 H Urine WBC (Auto) Ur Total Protein 24 Hr Urine Total Protein Laboratory Results - last 24 hr 08/19/16 08/19/16 08/19/16 12:36 14:30 14:30 WBC 8.8 RBC 4.18 Hgb 12.0 Hct 35.7 D MCV 85 MCH 29 MCHC 34 RDW 13.7 Plt Count 253 Sodium 140 Potassium 3.2 L Chloride 103.0 Carbon Dioxide 21 L D Anion Gap 19 BUN 12 Creatinine 0.5 L Estimated GFR > 60 BUN/Creatinine Ratio 24.00 Glucose 72 POC Glucose 93 Calcium 8.8 Total Bilirubin 1.5 H AST 45 H ALT 24 Alkaline Phosphatase 91 Total Protein 6.2 L D Albumin 3.1 L Albumin/Globulin Ratio 1.0 Amylase 403 H Lipase 08/19/16 08/19/16 08/20/16 14:30 17:31 00:05 WBC RBC Hgb Hct MCV MCH MCHC RDW Plt Count Sodium Potassium Chloride Carbon Dioxide Anion Gap BUN Creatinine Estimated GFR BUN/Creatinine Ratio Glucose POC Glucose 76 120 H Calcium Total Bilirubin AST ALT Alkaline Phosphatase Total Protein Albumin Albumin/Globulin Ratio Amylase Lipase 121 H 08/20/16 05:40 WBC RBC Hgb Hct MCV MCH MCHC RDW Plt Count Sodium Potassium Chloride Carbon Dioxide Anion Gap BUN Creatinine Estimated GFR BUN/Creatinine Ratio Glucose POC Glucose 84 Calcium Total Bilirubin AST ALT Alkaline Phosphatase Total Protein Albumin Albumin/Globulin Ratio Amylase Lipase
--- NOTE | 2016-08-20 10:39 | Ultrasound Report ---
BIOPHYSICAL PROFILE: 2 - breathing movements 2 - movements 2 - posture and tone 2 - Qualitative amniotic fluid volume - TOTAL SCORE OF POSSIBLE 8 Heart Rate (bpm) 133
[2016-08-20] MEDS: PRENATAL VITAMIN PO SCH (10:55)
[2016-08-20] MEDS: PHENERGAN PR SCH ×2 (12:16→23:17)
[2016-08-20] MEDS: KCL 10MEQ/100ML 100 ML IV PRN ×4 (17:28→22:10)
[2016-08-20] MEDS: AMBIEN PO SCH (22:01)
[2016-08-20] MEDS: REGLAN IV SCH (23:17)
[2016-08-21] MEDS: PHENERGAN PR SCH ×3 (00:08→17:57)
[2016-08-21] MEDS: REGLAN IV SCH ×3 (00:08→17:57)
[2016-08-21] MEDS: NORMODYNE PO SCH ×3 (04:50→22:32)
--- NOTE | 2016-08-21 05:23 | Consultation ---
History of Present Illness - Reason for Consult Consult date: 08/21/16 Medical management Requesting physician: FRANK EVANS - History of Present Illness CONSULT FOR POSSIBLE Pancreatitis and medical problems No abdominal pain.Lying in bed comfortably.Able to eat.One episode of vomiting yesterday.no fever or chills. 30 weeks gestation. Past History Past Medical History: diabetes, hypertension Social history: single, full code. denies: smoking, alcohol abuse, prescription drug abuse, IV drug use Medications and Allergies Allergies Allergy/AdvReac Type Severity Reaction Status Date / Time No Known Allergies Allergy Unverified 08/02/16 14:48 Home Medications Medication Instructions Recorded Confirmed Last Taken Type Pnv with Ca,No.72/Iron/FA [Pnv 1 tab PO DAILY 08/19/16 08/19/16 08/16/16 10:00 History Plus Multivit Tab] 1 tab Active Meds: Active Medications Acetaminophen (Tylenol) 650 mg PO Q4H PRN PRN Reason: Pain MILD(1-3)/Fever >100.5/[place] Al Hydrox/Mg Hydrox/Simethicone (Alum-Mag Hydrox-Simeth [phone]/5ml) 30 ml PO Q6H PRN PRN Reason: Indigestion Last Admin: 08/17/16 10:56 Dose: 30 ml Dextrose (D50w (25gm)) 50 ml IV PRN PRN PRN Reason: Hypoglycemia Docusate Sodium (Colace) 100 mg PO Q12H PRN PRN Reason: Constipation Hydralazine HCl (Apresoline) 5 mg IV Q30MIN PRN PRN Reason: Hypertension Last Admin: 08/16/16 22:20 Dose: 5 mg Multivitamins/Minerals 10 ml/ (Lactated Ringer's) 1,010 mls @ 150 mls/hr IV DIRECT LAURY Last Admin: 08/18/16 18:03 Dose: 150 mls/hr Lactated Ringer's (Lactated Ringers) 1,000 mls @ 125 mls/hr IV DIRECT LAURY Last Admin: 08/20/16 22:13 Dose: 125 mls/hr Potassium Chloride (Kcl 10meq/100ml) 100 mls @ 100 mls/hr IV Q1H PRN PRN Reason: Potassium 3-3.5 mEq/L Last Admin: 08/20/16 22:10 Dose: 100 mls/hr Insulin Human NPH (Novolin N) 36 unit SUB-Q QAMDIAB [facility] Last Admin: 08/20/16 08:09 Dose: 36 unit Insulin Human NPH (Novolin N) 26 unit SUB-Q QPMDIAB [facility] Last Admin: 08/20/16 17:25 Dose: 26 unit Insulin Human Regular (Novolin R) 32 units SUB-Q QAMDIAB [facility] Last Admin: 08/20/16 08:08 Dose: 32 units Insulin Human Regular (Novolin R) 28 units SUB-Q QPMDIAB [facility] Last Admin: 08/20/16 17:24 Dose: 28 units Insulin Human Regular (Novolin R) 0 units SUB-Q Q6HR [facility] PRN Reason: Protocol Last Admin: 08/20/16 23:57 Dose: Not Given Labetalol HCl (Normodyne) 400 mg PO Q8H [facility] Last Admin: 08/21/16 04:50 Dose: 400 mg Metoclopramide HCl (Reglan) 10 mg IV Q6H [facility] Last Admin: 08/21/16 00:08 Dose: Not Given Multivitamins/Iron/Calcium ( Vitamin) 1 each PO QDAY [facility] Last Admin: 08/20/16 10:55 Dose: 1 each Ondansetron HCl (Zofran) 8 mg IV Q6H PRN PRN Reason: Nausea And Vomiting Last Admin: 08/16/16 19:06 Dose: 8 mg Promethazine HCl (Phenergan) 25 mg WV Q6HR [facility] Last Admin: 08/21/16 00:08 Dose: Not Given Sodium Chloride (Sodium Chloride Flush Syringe 10 Ml) 10 ml IV PRN PRN PRN Reason: LINE FLUSH Zolpidem Tartrate (Ambien) 5 mg PO QHS [facility] Last Admin: 08/20/16 22:01 Dose: 5 mg Review of Systems All systems: negative Exam - Constitutional Vitals: Temp Pulse Resp BP Pulse Ox 98.9 F 59 L 20 164/90 98 08/21/16 04:32 08/21/16 05:11 08/21/16 04:32 08/21/16 05:11 08/21/16 04:51 General appearance: Present: no acute distress, well-nourished - EENT Eyes: Present: PERRL ENT: hearing intact, clear oral mucosa - Neck Neck: Present: supple, normal ROM - Respiratory Respiratory effort: normal Respiratory: bilateral: CTA - Cardiovascular Heart Sounds: Present: S1 & S2. Absent: rub, click - Extremities Extremities: pulses symmetrical, No edema Peripheral Pulses: within normal limits - Abdominal General gastrointestinal: Present: soft, non-tender, distended (30 weeks gestation), normal bowel sounds Female genitourinary: Present: normal - Integumentary Integumentary: Present: clear, warm, dry - Musculoskeletal Musculoskeletal: gait normal, strength equal bilaterally - Psychiatric Psychiatric: appropriate mood/affect, intact judgment & insight - Neurologic Neurologic: CNII-XII intact, moves all extremities Results - Labs CBC & Chem 7: 08/19/16 14:30 08/19/16 14:30 Labs: Abnormal lab results 08/20/16 08/20/16 Range/Units 10:58 15:02 POC Glucose 134 H 211 H (70-105) Assessment and Plan - Patient Problems (1) Pancreatitis Status: Acute Qualifiers: Acute pancreatitis complication: unspecified Plan to address problem: Mild-repeat Amylase and lipase. Clear liquids for 48 hrs (2) HTN (hypertension) Status: Chronic Qualifiers: Hypertension type: essential hypertension Qualified Code(s): I10 - Essential (primary) hypertension Plan to address problem: Add Amlodipine 10 mg po qd (3) IDDM (insulin dependent diabetes mellitus) Status: Chronic Plan to address problem: Reasonably well controlled (4) Hypokalemia Status: Acute Plan to address problem: Supplemented
[2016-08-21 07:43] LABS: Basophils % (Auto) 0.2 % (0.0-1.8); Eosinophils % (Auto) 2.3 % (0.0-4.3); Hematocrit 35.9 % (30.3-42.9); Mean Corpuscular HGB Conc 34 % (30-34); Mean Corpuscular Hemoglobin 29 pg (28-32); Mean Corpuscular Volume 86 fl (79-97); Platelet Count 202 K/mm3 (140-440); Red Blood Count 4.18 M/mm3 (3.65-5.03); Red Cell Distribution Width 13.6 % (13.2-15.2); White Blood Count 8.5 K/mm3 (4.5-11.0)
[2016-08-21 07:58] LABS: Alanine Aminotransferase 32 units/L (7-56); Albumin 2.6 g/dL (3.9-5); Albumin/Globulin Ratio 0.9 %; Alkaline Phosphatase 82 units/L (35-129); Amylase 238 units/L (27-131); Anion Gap 19 mmol/L; Bilirubin,Total 0.5 mg/dL (0.1-1.2); Blood Urea Nitrogen 3 mg/dL (7-17); Calcium 8.3 mg/dL (8.4-10.2); Carbon Dioxide 20 mmol/L (22-30); Chloride 104.5 mmol/L (98-107); Glucose 123 mg/dL (65-100); Sodium 140 mmol/L (137-145); Total Protein 5.5 g/dL (6.3-8.2)
--- NOTE | 2016-08-21 08:09 | Progress Note ---
Assessment and Plan A: 26 y/o at 30+4 wks -BPP 8/8 (08/19/16) -Consultations reviewed, thanks Issues -Essential hypertension with superimposed preeclampsia, severe by BP criteria -DM 2 -Oral history of Gastroparesis -CHTN -Obesity -Prior C-S # 1 -Desires tubal ligation -RH neg s/p Rhogam 08/02 -Elevated Amylase and Lipase - Suspect Pancreatitis Meds: -Labetalol 400mg TID -Insulin 36N32R/26N28R -Amlodipine 10 mg QD (started 08/21/16) Plan: -Continue Labetalol at 400 mg q8h -Frequent [q 6-8 hour] FHR monitoring for 30-60 min -BPP twice weekly -Repeat PIH labs q 3-4 days -Diabetes care as per MFM -Have started amlodipine 10 mg daily (per Int med recommendations) -Patient switched to clear liquid diet 48 hours -If Blood pressure remains uncontrolled, we'll start steroid course and prep for delivery - Patient Problems (1) 29 to 30 weeks gestation of Status: Acute (2) Hypertension affecting in third trimester Diagnosis Date: 08/18/16 Status: Acute (3) Pregestational diabetes mellitus, modified White class B Diagnosis Date: 08/18/16 Status: Acute (4) Maternal morbid obesity in third trimester, antepartum Status: Acute Subjective - Subjective Date of service: 08/21/16 Principal diagnosis: IUP at 30 4/7 weeks, CHTN, DM 2 and N/V Interval history: Patient seen and examined, stable and doing better. No headaches, scotomata or epigastric pain, plus movement no vaginal bleeding or loss of fluid. Blood pressure still labile with max 180 systolic, internal medicine notes reviewed thanks. Have started patient on amlodipine as recommended Patient reports: movement normal, no new complaints, no loss of fluid, no vaginal bleeding, no contractions Objective - Vital Signs Vital Signs: Vital Signs - 12hr 08/20/16 08/20/16 08/20/16 20:14 20:16 20:56 Temperature 98.0 F Pulse Rate 84 76 80 Pulse Rate [ 76 Right From Monitor] Respiratory 20 Rate Blood Pressure 127/76 126/74 Blood Pressure 127/76 [Right Arm] O2 Sat by Pulse 100 Oximetry 08/20/16 08/20/16 08/20/16 20:57 21:11 23:54 Temperature 98.3 F Pulse Rate 73 77 69 Pulse Rate [ 69 Right From Monitor] Respiratory 18 Rate Blood Pressure 126/74 116/69 163/77 Blood Pressure 163/77 [Right Arm] O2 Sat by Pulse 99 Oximetry 08/21/16 08/21/16 08/21/16 04:03 04:11 04:50 Temperature 98.9 F Pulse Rate 64 71 72 Pulse Rate [ 64 Right From Monitor] Respiratory 20 Rate Blood Pressure 132/85 135/89 155/94 Blood Pressure 132/85 [Right Arm] O2 Sat by Pulse 98 Oximetry 08/21/16 08/21/16 08/21/16 04:51 05:11 06:22 Temperature Pulse Rate 68 59 L 60 Pulse Rate [ Right From Monitor] Respiratory Rate Blood Pressure 155/94 164/90 180/96 Blood Pressure 165/90 180/96 [Right Arm] O2 Sat by Pulse 98 Oximetry 08/21/16 08/21/16 06:23 08:03 Temperature Pulse Rate 63 72 Pulse Rate [ Right From Monitor] Respiratory Rate Blood Pressure 138/99 140/80 Blood Pressure 138/99 [Right Arm] O2 Sat by Pulse 99 Oximetry - Exam Abdomen: Present: normal appearance, soft. Absent: distention, tenderness, guarding, rigidity FHR: category 1 - Labs Labs: Abnormal Labs 08/16/16 08/16/16 08/16/16 17:20 17:20 18:54 WBC RBC Hgb Hct Lymph % (Auto) [place] % (Auto) Seg Neutrophils % Seg Neutrophils # Potassium Chloride 95.0 L Carbon Dioxide 14 L BUN Creatinine 0.5 L Glucose 299 H POC Glucose Calcium Magnesium Total Bilirubin AST Total Protein Albumin 3.8 L Amylase Lipase Urine WBC (Auto) 20.0 H Ur Total Protein 24 Hr 869.50 H Urine Total Protein 37 H 08/16/16 08/16/16 08/16/16 18:54 19:11 21:25 WBC 13.7 H RBC 5.11 H Hgb 14.4 H Hct 43.8 H Lymph % (Auto) 12.[address] [place] % (Auto) Seg Neutrophils % 85.3 H Seg Neutrophils # 11.7 H Potassium Chloride Carbon Dioxide BUN Creatinine Glucose POC Glucose 223 H Calcium Magnesium Total Bilirubin AST Total Protein Albumin Amylase 153 H Lipase 154 H Urine WBC (Auto) Ur Total Protein 24 Hr Urine Total Protein 08/17/16 08/17/16 08/17/16 06:01 06:30 10:35 WBC RBC Hgb Hct Lymph % (Auto) [place] % (Auto) Seg Neutrophils % Seg Neutrophils # Potassium Chloride Carbon Dioxide BUN Creatinine Glucose POC Glucose 396 H 303 H Calcium Magnesium 5.2 H Total Bilirubin AST Total Protein Albumin Amylase Lipase Urine WBC (Auto) Ur Total Protein 24 Hr Urine Total Protein 08/17/16 08/17/16 08/17/16 12:07 15:52 17:11 WBC RBC Hgb Hct Lymph % (Auto) [place] % (Auto) Seg Neutrophils % Seg Neutrophils # Potassium Chloride Carbon Dioxide BUN Creatinine Glucose POC Glucose 316 H 234 H 244 H Calcium Magnesium Total Bilirubin AST Total Protein Albumin Amylase Lipase Urine WBC (Auto) Ur Total Protein 24 Hr Urine Total Protein 08/17/16 08/18/16 08/18/16 20:57 03:14 07:45 WBC RBC Hgb Hct Lymph % (Auto) [place] % (Auto) Seg Neutrophils % Seg Neutrophils # Potassium Chloride Carbon Dioxide BUN Creatinine Glucose POC Glucose 196 H 115 H 145 H Calcium Magnesium Total Bilirubin AST Total Protein Albumin Amylase Lipase Urine WBC (Auto) Ur Total Protein 24 Hr Urine Total Protein 08/18/16 08/19/16 08/19/16 12:33 10:14 14:30 WBC RBC Hgb Hct Lymph % (Auto) [place] % (Auto) Seg Neutrophils % Seg Neutrophils # Potassium 3.2 L Chloride Carbon Dioxide 21 L D BUN Creatinine 0.5 L Glucose POC Glucose 107 H 117 H Calcium Magnesium Total Bilirubin 1.5 H AST 45 H Total Protein 6.2 L D Albumin 3.1 L Amylase 403 H Lipase Urine WBC (Auto) Ur Total Protein 24 Hr Urine Total Protein 08/19/16 08/20/16 08/20/16 14:30 00:05 10:58 WBC RBC Hgb Hct Lymph % (Auto) [place] % (Auto) Seg Neutrophils % Seg Neutrophils # Potassium Chloride Carbon Dioxide BUN Creatinine Glucose POC Glucose 120 H 134 H Calcium Magnesium Total Bilirubin AST Total Protein Albumin Amylase Lipase 121 H Urine WBC (Auto) Ur Total Protein 24 Hr Urine Total Protein 08/20/16 08/21/16 08/21/16 15:02 05:56 06:51 WBC RBC Hgb Hct Lymph % (Auto) [place] % (Auto) Seg Neutrophils % Seg Neutrophils # Potassium Chloride Carbon Dioxide BUN Creatinine Glucose POC Glucose 211 H 67 L Calcium Magnesium Total Bilirubin AST Total Protein Albumin Amylase Lipase 101 H Urine WBC (Auto) Ur Total Protein 24 Hr Urine Total Protein 08/21/16 08/21/16 06:51 06:51 WBC RBC Hgb Hct Lymph % (Auto) 35.[address] [place] % (Auto) 8.5 H Seg Neutrophils % Seg Neutrophils # Potassium 3.0 L Chloride Carbon Dioxide 20 L BUN 3 L Creatinine 0.5 L Glucose 123 H POC Glucose Calcium 8.3 L Magnesium Total Bilirubin AST Total Protein 5.5 L Albumin 2.6 L Amylase 238 H Lipase Urine WBC (Auto) Ur Total Protein 24 Hr Urine Total Protein Laboratory Results - last 24 hr 08/20/16 08/20/16 08/20/16 10:58 12:11 15:02 WBC RBC Hgb Hct MCV MCH MCHC RDW Plt Count Lymph % (Auto) [place] % (Auto) Eos % (Auto) Baso % (Auto) Lymph # [place] # Eos # Baso # Seg Neutrophils % Seg Neutrophils # Sodium Potassium Chloride Carbon Dioxide Anion Gap BUN Creatinine Estimated GFR BUN/Creatinine Ratio Glucose POC Glucose 134 H 101 211 H Calcium Total Bilirubin AST ALT Alkaline Phosphatase Total Protein Albumin Albumin/Globulin Ratio Amylase Lipase 08/20/16 08/21/16 08/21/16 23:24 05:56 06:26 WBC RBC Hgb Hct MCV MCH MCHC RDW Plt Count Lymph % (Auto) [place] % (Auto) Eos % (Auto) Baso % (Auto) Lymph # [place] # Eos # Baso # Seg Neutrophils % Seg Neutrophils # Sodium Potassium Chloride Carbon Dioxide Anion Gap BUN Creatinine Estimated GFR BUN/Creatinine Ratio Glucose POC Glucose 82 67 L 79 Calcium Total Bilirubin AST ALT Alkaline Phosphatase Total Protein Albumin Albumin/Globulin Ratio Amylase Lipase 08/21/16 08/21/16 08/21/16 06:51 06:51 06:51 WBC 8.5 RBC 4.18 Hgb 12.0 Hct 35.9 MCV 86 MCH 29 MCHC 34 RDW 13.6 Plt Count 202 Lymph % (Auto) 35.[address] % (Auto) 8.5 H Eos % (Auto) 2.3 Baso % (Auto) 0.2 Lymph # 3.0 [place] # 0.7 Eos # 0.2 Baso # 0.0 Seg Neutrophils % 53.1 Seg Neutrophils # 4.5 Sodium 140 Potassium 3.0 L Chloride 104.5 Carbon Dioxide 20 L Anion Gap 19 BUN 3 L Creatinine 0.5 L Estimated GFR > 60 BUN/Creatinine Ratio 6.00 Glucose 123 H POC Glucose Calcium 8.3 L Total Bilirubin 0.5 AST 39 ALT 32 Alkaline Phosphatase 82 Total Protein 5.5 L Albumin 2.6 L Albumin/Globulin Ratio 0.9 Amylase 238 H Lipase 101 H
[2016-08-21] MEDS: K-DUR PO SCH ×2 (10:19→22:38)
[2016-08-21] MEDS: NORVASC PO SCH (10:19)
[2016-08-21] MEDS: PRENATAL VITAMIN PO SCH (10:19)
--- NOTE | 2016-08-21 18:13 | Progress Note ---
Assessment and Plan Impression: 1. IUP at 30 4/7 weeks' 2. Essential hypertension with superimposed preeclampsia, severe by BP criteria 3. Type 2 IDDM 4. Gastroparesis 5. Previous C/S 6. Obesity 7. Rh negative Recommend: 1. Continue labetalol at 400 mg q8h 2. Frequent [q 6-8 hour] FHR monitoring for 30-60 min 3. BPP twice weekly 4. Repeat PIH labs q 3-4 days 5. Serial amylase/lipase until normal 6. Continue current insulin regimen; adjust as indicated 7. Deliver no later than 34 weeks' 8. Hold betamethasone; may need to administer if condition indicates need for sooner delivery [with expected worsening of diabetes control] 9. If discharged home, will need twice weekly maternal/ surveillance by AMFM, weekly PIH labs Subjective - Subjective Date of service: 08/21/16 Principal diagnosis: IUP at 30 4/7 weeks, CHTN, DM 2 and N/V Interval history: Feeling well, fetus active; denied headache, scotomata, epigastric pain. Patient is hungry. Patient reports: movement normal, no new complaints, no loss of fluid, no vaginal bleeding, no contractions Objective - Vital Signs Vital Signs: Vital Signs - 12hr 08/21/16 08/21/16 08/21/16 06:22 06:23 08:03 Temperature Pulse Rate 60 63 72 Pulse Rate [ Left From Monitor] Pulse Rate [ Right From Monitor] Respiratory Rate Blood Pressure 180/96 138/99 140/80 Blood Pressure [Left Arm] Blood Pressure 180/96 138/99 [Right Arm] O2 Sat by Pulse 99 Oximetry 08/21/16 08/21/16 08/21/16 08:06 09:12 10:12 Temperature 97.2 F L Pulse Rate 88 70 Pulse Rate [ 72 Left From Monitor] Pulse Rate [ Right From Monitor] Respiratory 18 Rate Blood Pressure 199/95 150/75 Blood Pressure 140/80 [Left Arm] Blood Pressure [Right Arm] O2 Sat by Pulse Oximetry 08/21/16 08/21/16 08/21/16 10:19 11:50 11:57 Temperature 97.3 F L Pulse Rate 70 66 Pulse Rate [ Left From Monitor] Pulse Rate [ 66 Right From Monitor] Respiratory 18 Rate Blood Pressure 150/75 168/89 Blood Pressure [Left Arm] Blood Pressure 168/89 [Right Arm] O2 Sat by Pulse Oximetry 08/21/16 08/21/16 08/21/16 12:56 13:11 15:52 Temperature Pulse Rate 71 75 81 Pulse Rate [ Left From Monitor] Pulse Rate [ Right From Monitor] Respiratory Rate Blood Pressure 142/90 132/75 126/86 Blood Pressure [Left Arm] Blood Pressure [Right Arm] O2 Sat by Pulse Oximetry 08/21/16 16:01 Temperature 97.2 F L Pulse Rate Pulse Rate [ Left From Monitor] Pulse Rate [ 81 Right From Monitor] Respiratory 18 Rate Blood Pressure Blood Pressure [Left Arm] Blood Pressure 126/86 [Right Arm] O2 Sat by Pulse Oximetry - Exam Narrative Exam: Afebrile; BP's labile, most in non severe range; abd soft, nontender; FHT's not currently monitored; DTR 1-2+; admission amylase/lipase elevated; repeat levels elevated but improved; most recent fingerstick capillary blood sugars low to normal - Labs Labs: Abnormal Labs 08/16/16 08/16/16 08/16/16 17:20 17:20 18:54 WBC RBC Hgb Hct Lymph % (Auto) [place] % (Auto) Seg Neutrophils % Seg Neutrophils # Potassium Chloride 95.0 L Carbon Dioxide 14 L BUN Creatinine 0.5 L Glucose 299 H POC Glucose Calcium Magnesium Total Bilirubin AST Total Protein Albumin 3.8 L Amylase Lipase Urine WBC (Auto) 20.0 H Ur Total Protein 24 Hr 869.50 H Urine Total Protein 37 H 08/16/16 08/16/16 08/16/16 18:54 19:11 21:25 WBC 13.7 H RBC 5.11 H Hgb 14.4 H Hct 43.8 H Lymph % (Auto) 12.7 L [place] % (Auto) Seg Neutrophils % 85.3 H Seg Neutrophils # 11.7 H Potassium Chloride Carbon Dioxide BUN Creatinine Glucose POC Glucose 223 H Calcium Magnesium Total Bilirubin AST Total Protein Albumin Amylase 153 H Lipase 154 H Urine WBC (Auto) Ur Total Protein 24 Hr Urine Total Protein 08/17/16 08/17/16 08/17/16 06:01 06:30 10:35 WBC RBC Hgb Hct Lymph % (Auto) [place] % (Auto) Seg Neutrophils % Seg Neutrophils # Potassium Chloride Carbon Dioxide BUN Creatinine Glucose POC Glucose 396 H 303 H Calcium Magnesium 5.2 H Total Bilirubin AST Total Protein Albumin Amylase Lipase Urine WBC (Auto) Ur Total Protein 24 Hr Urine Total Protein 08/17/16 08/17/16 08/17/16 12:07 15:52 17:11 WBC RBC Hgb Hct Lymph % (Auto) [place] % (Auto) Seg Neutrophils % Seg Neutrophils # Potassium Chloride Carbon Dioxide BUN Creatinine Glucose POC Glucose 316 H 234 H 244 H Calcium Magnesium Total Bilirubin AST Total Protein Albumin Amylase Lipase Urine WBC (Auto) Ur Total Protein 24 Hr Urine Total Protein 08/17/16 08/18/16 08/18/16 20:57 03:14 07:45 WBC RBC Hgb Hct Lymph % (Auto) [place] % (Auto) Seg Neutrophils % Seg Neutrophils # Potassium Chloride Carbon Dioxide BUN Creatinine Glucose POC Glucose 196 H 115 H 145 H Calcium Magnesium Total Bilirubin AST Total Protein Albumin Amylase Lipase Urine WBC (Auto) Ur Total Protein 24 Hr Urine Total Protein 08/18/16 08/19/16 08/19/16 12:33 10:14 14:30 WBC RBC Hgb Hct Lymph % (Auto) [place] % (Auto) Seg Neutrophils % Seg Neutrophils # Potassium 3.2 L Chloride Carbon Dioxide 21 L D BUN Creatinine 0.5 L Glucose POC Glucose 107 H 117 H Calcium Magnesium Total Bilirubin 1.5 H AST 45 H Total Protein 6.2 L D Albumin 3.1 L Amylase 403 H Lipase Urine WBC (Auto) Ur Total Protein 24 Hr Urine Total Protein 08/19/16 08/20/16 08/20/16 14:30 00:05 10:58 WBC RBC Hgb Hct Lymph % (Auto) [place] % (Auto) Seg Neutrophils % Seg Neutrophils # Potassium Chloride Carbon Dioxide BUN Creatinine Glucose POC Glucose 120 H 134 H Calcium Magnesium Total Bilirubin AST Total Protein Albumin Amylase Lipase 121 H Urine WBC (Auto) Ur Total Protein 24 Hr Urine Total Protein 08/20/16 08/21/16 08/21/16 15:02 05:56 06:51 WBC RBC Hgb Hct Lymph % (Auto) [place] % (Auto) Seg Neutrophils % Seg Neutrophils # Potassium Chloride Carbon Dioxide BUN Creatinine Glucose POC Glucose 211 H 67 L Calcium Magnesium Total Bilirubin AST Total Protein Albumin Amylase Lipase 101 H Urine WBC (Auto) Ur Total Protein 24 Hr Urine Total Protein 08/21/16 08/21/16 08/21/16 06:51 06:51 11:33 WBC RBC Hgb Hct Lymph % (Auto) 35.9 H [place] % (Auto) 8.5 H Seg Neutrophils % Seg Neutrophils # Potassium 3.0 L Chloride Carbon Dioxide 20 L BUN 3 L Creatinine 0.5 L Glucose 123 H POC Glucose 53 L Calcium 8.3 L Magnesium Total Bilirubin AST Total Protein 5.5 L Albumin 2.6 L Amylase 238 H Lipase Urine WBC (Auto) Ur Total Protein 24 Hr Urine Total Protein 08/21/16 08/21/16 11:53 16:56 WBC RBC Hgb Hct Lymph % (Auto) [place] % (Auto) Seg Neutrophils % Seg Neutrophils # Potassium Chloride Carbon Dioxide BUN Creatinine Glucose POC Glucose 52 L 42 L Calcium Magnesium Total Bilirubin AST Total Protein Albumin Amylase Lipase Urine WBC (Auto) Ur Total Protein 24 Hr Urine Total Protein Laboratory Results - last 24 hr 08/20/16 08/21/16 08/21/16 23:24 05:56 06:26 WBC RBC Hgb Hct MCV MCH MCHC RDW Plt Count Lymph % (Auto) [place] % (Auto) Eos % (Auto) Baso % (Auto) Lymph # [place] # Eos # Baso # Seg Neutrophils % Seg Neutrophils # Sodium Potassium Chloride Carbon Dioxide Anion Gap BUN Creatinine Estimated GFR BUN/Creatinine Ratio Glucose POC Glucose 82 67 L 79 Calcium Total Bilirubin AST ALT Alkaline Phosphatase Total Protein Albumin Albumin/Globulin Ratio Amylase Lipase 08/21/16 08/21/16 08/21/16 06:51 06:51 06:51 WBC 8.5 RBC 4.18 Hgb 12.0 Hct 35.9 MCV 86 MCH 29 MCHC 34 RDW 13.6 Plt Count 202 Lymph % (Auto) 35.9 H [place] % (Auto) 8.5 H Eos % (Auto) 2.3 Baso % (Auto) 0.2 Lymph # 3.0 [place] # 0.7 Eos # 0.2 Baso # 0.0 Seg Neutrophils % 53.1 Seg Neutrophils # 4.5 Sodium 140 Potassium 3.0 L Chloride 104.5 Carbon Dioxide 20 L Anion Gap 19 BUN 3 L Creatinine 0.5 L Estimated GFR > 60 BUN/Creatinine Ratio 6.00 Glucose 123 H POC Glucose Calcium 8.3 L Total Bilirubin 0.5 AST 39 ALT 32 Alkaline Phosphatase 82 Total Protein 5.5 L Albumin 2.6 L Albumin/Globulin Ratio 0.9 Amylase 238 H Lipase 101 H 08/21/16 08/21/16 08/21/16 11:33 11:53 16:56 WBC RBC Hgb Hct MCV MCH MCHC RDW Plt Count Lymph % (Auto) [place] % (Auto) Eos % (Auto) Baso % (Auto) Lymph # [place] # Eos # Baso # Seg Neutrophils % Seg Neutrophils # Sodium Potassium Chloride Carbon Dioxide Anion Gap BUN Creatinine Estimated GFR BUN/Creatinine Ratio Glucose POC Glucose 53 L 52 L 42 L Calcium Total Bilirubin AST ALT Alkaline Phosphatase Total Protein Albumin Albumin/Globulin Ratio Amylase Lipase
[2016-08-22] MEDS: LACTATED RINGERS 1,000 ML IV SCH ×2 (00:22→10:53)
[2016-08-22] MEDS: AMBIEN PO SCH (00:29)
--- NOTE | 2016-08-22 10:14 | Progress Note ---
Assessment and Plan A: 26 y/o at 30+5 wks -BPP 8 (08/19/16) -Consultations reviewed, thanks Issues -Essential hypertension with superimposed preeclampsia, severe by BP criteria -DM 2 -Oral history of Gastroparesis -CHTN -Obesity -Prior C-S # 1 -Desires tubal ligation -RH neg s/p Rhogam 08/02 -Elevated Amylase and Lipase - Suspect Pancreatitis Meds: -Labetalol 400mg TID -Insulin [id number]/26N28R -Amlodipine 10 mg QD (started 08/21/16) Plan: -Spoke with Dr. Alberts of [facility], see notes -Will obtain BPP, HELLP labs, amylase and lipase now -Disposition after results - Patient Problems (1) 29 to 30 weeks gestation of Status: Acute (2) Hypertension affecting in third trimester Diagnosis Date: 08/18/16 Status: Acute (3) Pregestational diabetes mellitus, modified White class B Diagnosis Date: 08/18/16 Status: Acute (4) Maternal morbid obesity in third trimester, antepartum Status: Acute Subjective - Subjective Date of service: 08/22/16 Principal diagnosis: IUP at 30 5/7 weeks, CHTN, DM 2 and N/V Interval history: Patient seen and examined, stable and doing better. No headaches, scotomata or epigastric pain, plus movement no vaginal bleeding or loss of fluid. Blood pressure still labile but with max systolic less than 160 and max diastolic less than 100. She desires discharge home today Spoke with Dr. Smith of [facility], she has cleared the patient for discharge if blood pressure less than severe, no sign symptoms of preeclampsia and labs acceptable Patient reports: movement normal, no new complaints, no loss of fluid, no vaginal bleeding, no contractions Objective - Vital Signs Vital Signs: Vital Signs - 12hr 08/22/16 08/22/16 08/22/16 00:33 00:53 04:34 Temperature Pulse Rate 77 88 77 Pulse Rate [ Right From Monitor] Respiratory Rate Blood Pressure 153/97 142/100 146/87 Blood Pressure [Left Arm] O2 Sat by Pulse Oximetry 08/22/16 08/22/16 08/22/16 04:53 05:54 09:11 Temperature 96.7 F L Pulse Rate 75 62 68 Pulse Rate [ 71 Right From Monitor] Respiratory 20 Rate Blood Pressure 147/90 155/76 147/93 Blood Pressure 147/93 [Left Arm] O2 Sat by Pulse 99 Oximetry 08/22/16 08/22/16 08/22/16 09:16 09:21 09:26 Temperature Pulse Rate 71 85 79 Pulse Rate [ Right From Monitor] Respiratory Rate Blood Pressure Blood Pressure [Left Arm] O2 Sat by Pulse 99 99 99 Oximetry 08/22/16 08/22/16 08/22/16 09:31 09:36 09:41 Temperature Pulse Rate 88 80 85 Pulse Rate [ Right From Monitor] Respiratory Rate Blood Pressure Blood Pressure [Left Arm] O2 Sat by Pulse 99 99 99 Oximetry 08/22/16 08/22/16 08/22/16 09:46 09:51 09:53 Temperature Pulse Rate 87 96 H 72 Pulse Rate [ Right From Monitor] Respiratory Rate Blood Pressure 147/95 Blood Pressure [Left Arm] O2 Sat by Pulse 99 99 Oximetry 08/22/16 08/22/16 08/22/16 09:56 10:01 10:06 Temperature Pulse Rate 74 72 68 Pulse Rate [ Right From Monitor] Respiratory Rate Blood Pressure Blood Pressure [Left Arm] O2 Sat by Pulse 98 98 99 Oximetry - Exam Abdomen: Present: normal appearance, soft. Absent: distention, tenderness, guarding, rigidity Uterus: Absent: tenderness - Labs Labs: Abnormal Labs 08/16/16 08/16/16 08/16/16 17:20 17:20 18:54 WBC RBC Hgb Hct Lymph % (Auto) [place] % (Auto) Seg Neutrophils % Seg Neutrophils # Potassium Chloride 95.0 L Carbon Dioxide 14 L BUN Creatinine 0.5 L Glucose 299 H POC Glucose Calcium Magnesium Total Bilirubin AST Total Protein Albumin 3.8 L Amylase Lipase Urine WBC (Auto) 20.0 H Ur Total Protein 24 Hr 869.50 H Urine Total Protein 37 H 08/16/16 08/16/16 08/16/16 18:54 19:11 21:25 WBC 13.7 H RBC 5.11 H Hgb 14.4 H Hct 43.8 H Lymph % (Auto) 12.7 L [place] % (Auto) Seg Neutrophils % 85.3 H Seg Neutrophils # 11.7 H Potassium Chloride Carbon Dioxide BUN Creatinine Glucose POC Glucose 223 H Calcium Magnesium Total Bilirubin AST Total Protein Albumin Amylase 153 H Lipase 154 H Urine WBC (Auto) Ur Total Protein 24 Hr Urine Total Protein 08/17/16 08/17/16 08/17/16 06:01 06:30 10:35 WBC RBC Hgb Hct Lymph % (Auto) [place] % (Auto) Seg Neutrophils % Seg Neutrophils # Potassium Chloride Carbon Dioxide BUN Creatinine Glucose POC Glucose 396 H 303 H Calcium Magnesium 5.2 H Total Bilirubin AST Total Protein Albumin Amylase Lipase Urine WBC (Auto) Ur Total Protein 24 Hr Urine Total Protein 08/17/16 08/17/16 08/17/16 12:07 15:52 17:11 WBC RBC Hgb Hct Lymph % (Auto) [place] % (Auto) Seg Neutrophils % Seg Neutrophils # Potassium Chloride Carbon Dioxide BUN Creatinine Glucose POC Glucose 316 H 234 H 244 H Calcium Magnesium Total Bilirubin AST Total Protein Albumin Amylase Lipase Urine WBC (Auto) Ur Total Protein 24 Hr Urine Total Protein 08/17/16 08/18/16 08/18/16 20:57 03:14 07:45 WBC RBC Hgb Hct Lymph % (Auto) [place] % (Auto) Seg Neutrophils % Seg Neutrophils # Potassium Chloride Carbon Dioxide BUN Creatinine Glucose POC Glucose 196 H 115 H 145 H Calcium Magnesium Total Bilirubin AST Total Protein Albumin Amylase Lipase Urine WBC (Auto) Ur Total Protein 24 Hr Urine Total Protein 08/18/16 08/19/16 08/19/16 12:33 10:14 14:30 WBC RBC Hgb Hct Lymph % (Auto) [place] % (Auto) Seg Neutrophils % Seg Neutrophils # Potassium 3.2 L Chloride Carbon Dioxide 21 L D BUN Creatinine 0.5 L Glucose POC Glucose 107 H 117 H Calcium Magnesium Total Bilirubin 1.5 H AST 45 H Total Protein 6.2 L D Albumin 3.1 L Amylase 403 H Lipase Urine WBC (Auto) Ur Total Protein 24 Hr Urine Total Protein 08/19/16 08/20/16 08/20/16 14:30 00:05 10:58 WBC RBC Hgb Hct Lymph % (Auto) [place] % (Auto) Seg Neutrophils % Seg Neutrophils # Potassium Chloride Carbon Dioxide BUN Creatinine Glucose POC Glucose 120 H 134 H Calcium Magnesium Total Bilirubin AST Total Protein Albumin Amylase Lipase 121 H Urine WBC (Auto) Ur Total Protein 24 Hr Urine Total Protein 08/20/16 08/21/16 08/21/16 15:02 05:56 06:51 WBC RBC Hgb Hct Lymph % (Auto) [place] % (Auto) Seg Neutrophils % Seg Neutrophils # Potassium Chloride Carbon Dioxide BUN Creatinine Glucose POC Glucose 211 H 67 L Calcium Magnesium Total Bilirubin AST Total Protein Albumin Amylase Lipase 101 H Urine WBC (Auto) Ur Total Protein 24 Hr Urine Total Protein 08/21/16 08/21/16 08/21/16 06:51 06:51 11:33 WBC RBC Hgb Hct Lymph % (Auto) 35.9 H [place] % (Auto) 8.5 H Seg Neutrophils % Seg Neutrophils # Potassium 3.0 L Chloride Carbon Dioxide 20 L BUN 3 L Creatinine 0.5 L Glucose 123 H POC Glucose 53 L Calcium 8.3 L Magnesium Total Bilirubin AST Total Protein 5.5 L Albumin 2.6 L Amylase 238 H Lipase Urine WBC (Auto) Ur Total Protein 24 Hr Urine Total Protein 08/21/16 08/21/16 08/22/16 11:53 16:56 00:25 WBC RBC Hgb Hct Lymph % (Auto) [place] % (Auto) Seg Neutrophils % Seg Neutrophils # Potassium Chloride Carbon Dioxide BUN Creatinine Glucose POC Glucose 52 L 42 L 111 H Calcium Magnesium Total Bilirubin AST Total Protein Albumin Amylase Lipase Urine WBC (Auto) Ur Total Protein 24 Hr Urine Total Protein Laboratory Results - last 24 hr 08/21/16 08/21/16 08/21/16 11:33 11:53 16:56 POC Glucose 53 L 52 L 42 L 08/22/16 08/22/16 00:25 06:01 POC Glucose 111 H 83
[2016-08-22] MEDS: NORVASC PO SCH (10:31)
[2016-08-22] MEDS: K-DUR PO SCH (10:32)
[2016-08-22] MEDS: PRENATAL VITAMIN PO SCH (10:33)
[2016-08-22 12:18] LABS: Hematocrit 36.8 % (30.3-42.9); Hemoglobin 12.1 gm/dl (10.1-14.3); Mean Corpuscular HGB Conc 33 % (30-34); Mean Corpuscular Hemoglobin 28 pg (28-32); Mean Corpuscular Volume 86 fl (79-97); Platelet Count 200 K/mm3 (140-440); Red Cell Distribution Width 13.9 % (13.2-15.2); White Blood Count 8.3 K/mm3 (4.5-11.0)
--- NOTE | 2016-08-22 12:34 | Ultrasound Report ---
BIOPHYSICAL PROFILE: INDICATION: Superimposed preeclampsia on chronic hypertension. COMPARISON: 08/19/2016. TECHNIQUE: Transabdominal ultrasound with Doppler interrogation. 2 - breathing movements 2 - movements 2 - posture and tone 2 - Qualitative amniotic fluid volume 8 - TOTAL SCORE OF POSSIBLE 8 Heart Rate (bpm) 138
[2016-08-22 12:35] LABS: Alanine Aminotransferase 30 units/L (7-56); Albumin 2.7 g/dL (3.9-5); Alkaline Phosphatase 81 units/L (35-129); Amylase 105 units/L (27-131); Anion Gap 16 mmol/L; Bilirubin,Total 0.3 mg/dL (0.1-1.2); Blood Urea Nitrogen 2 mg/dL (7-17); Calcium 8.5 mg/dL (8.4-10.2); Carbon Dioxide 24 mmol/L (22-30); Chloride 102.4 mmol/L (98-107); Glucose 117 mg/dL (65-100); Potassium 3.6 mmol/L (3.6-5.0); Sodium 139 mmol/L (137-145); Total Protein 5.4 g/dL (6.3-8.2)
[2016-08-22] MEDS: NORMODYNE PO SCH ×2 (13:22→13:28)
[2016-08-22 13:28] VITALS: BP 124/80
--- NOTE | 2016-08-22 13:42 | Discharge Summary ---
Providers - Providers Date of discharge: 08/22/16 Attending physician: FRANK AUGUSTINE MD 08/17/16 19:24 Consult to Physician [CONS] Routine Consulting Provider: JOVANA ARTHUR Reason For Exam: ~ 30 week with pregestational DM Place [facility] Notified:: Yes Phone number called:: [phone] Was contact made?: Yes If yes, spoke with:: Answering Service Time called:: 06:00 08/20/16 10:57 Consult to Physician [CONS] Urgent Consulting Provider: MADELINE BOND Reason For Exam: Suspect pancreatitis Place consult to:: Hospitalist Notified:: Dr Bond Phone number called:: [phone] Was contact made?: Yes If yes, spoke with:: Dr Adorno Time called:: 11:00 Primary care physician: FRANK AUGUSTINE MD Hospitalization Reason for admission: observation, IUP at term (~ 29+ weeks) Discharge diagnosis: other (IUP at 30+5 wks with superimposed Pre-eclampsia, DM 2, Obesity) Pertinent studies: BPP series with result 03/06 Hospital course: 26-year-old admitted at 29+6 weeks with N/V, elevated BP and fever. she is a life cycle [employer] patient. Essential history is received a call from the [employer] office about above. Patient with nausea vomiting, history of diabetes and hypertension and noncompliance, oral history of elevated temperature no documentation. Review of clinic chart shows elevated blood pressures in the clinic with range ~ 130's-170's/70's-110's. Patient has not completed a 24-hour urine protein per office staff due to noncompliance Is currently being seen by [facility] She was admitted to the floor and 24 hr urine protein collection started. Result was ~ 800 and patient was diagnosed with CHTN with superimposed Pre- Eclampsia. Her Labetalol was increased to 800mg every 8 hrs and then Amlodipine 10mg QD was started after internal medicine consult. Started on her insulin regimen and sliding scale insulin was also started. [facility] consult requested and below is [facility] note: Impression: 1. IUP at 30 4/7 weeks' 2. Essential hypertension with superimposed preeclampsia, severe by BP criteria 3. Type 2 IDDM 4. Gastroparesis 5. Previous C/S 6. Obesity 7. Rh negative Recommend: 1. Continue labetalol at 400 mg q8h 2. Frequent [q 6-8 hour] FHR monitoring for 30-60 min 3. BPP twice weekly 4. Repeat PIH labs q 3-4 days 5. Serial amylase/lipase until normal 6. Continue current insulin regimen; adjust as indicated 7. Deliver no later than 34 weeks' 8. Hold betamethasone; may need to administer if condition indicates need for sooner delivery [with expected worsening of diabetes control] 9. If discharged home, will need twice weekly maternal/ surveillance by [facility], weekly PIH labs Patient seen on the morning of 08/22/2016, demanding discharged home. Spoke with Dr. Alberts of [facility], recommendation is to discharge patient if blood pressure less than severe, and testing reassuring. BPP subsequently obtained 8 out of 8, HELLP labs are negative and BP is in the 120-140's/80-90's; he has no signs or symptoms of preeclampsia She will be Discharged home today at 30+5 wks [facility] to call to schedule follow up or Sunday Condition at discharge: Good Disposition: DISCHARGED TO HOME OR SELFCARE - Discharge Diagnoses (1) 30 weeks gestation of Status: Acute (2) Pre-eclampsia superimposed on chronic hypertension, antepartum Status: Acute (3) Hypertension affecting in third trimester Status: Acute (4) Pregestational diabetes mellitus, modified White class B Status: Acute (5) Maternal morbid obesity in third trimester, antepartum Status: Acute Plan - Discharge Medications Prescriptions: Labetalol [Normodyne TAB] 200 mg PO BID #120 tablet amLODIPine [Norvasc] 10 mg PO DAILY #30 tab - Provider Discharge Summary Activity: no sex for 6 weeks, no heavy lifting 4 weeks, no strenuous exercise Additional instructions: [] Smoking cessation referral if applicable(refer to patient education folder for contact #) [] Refer to [facility] Booklet Call your doctor immediately for: * Fever > 100.5 * Heavy vaginal bleeding ( >1 pad per hour) * Severe persistent headache * Shortness of breath * Reddened, hot, painful area to leg or breast * Drainage or odor from incision. * Keep incision clean and dry at all times and follow doctor's instructions regarding bathing/showering - Follow up plan Follow up: WLFRANK ORDOÑEZ MD [Primary Care Provider] - 7 Days TIFFANIE ALBERTS MD [Staff Physician] - 48 Hours Forms: C Discharge Summary
--- NOTE | 2016-08-22 17:59 | Progress Note ---
Assessment and Plan Assessment and plan: (1) Pancreatitis Status: Acute Qualifiers: Acute pancreatitis complication: unspecified Plan to address problem: resolved, tolerating diet (2) HTN (hypertension) Status: Chronic Qualifiers: Hypertension type: essential hypertension Qualified Code(s): I10 - Essential (primary) hypertension Plan to address problem: better controlled on current regimen (3) IDDM (insulin dependent diabetes mellitus) Status: Chronic Plan to address problem: Reasonably well controlled (4) Hypokalemia Status: Acute Plan to address problem: Supplemented Disposition: plan to d/c today History Interval history: Patient seen and examined. Medical records and medication list reviewed. No acute event overnight noted by the RN. Patient denies any chest pain or difficulty breathing. Patient is tolerating diet. Discussed plan of care at bedside with patient. Hospitalist Physical - Physical exam Narrative exam: GENERAL: well-developed and well-nourished lying on bed appeared to be in no discomfort. HEENT: Normocephalic. Atraumatic. No conjunctival congestion or icterus. Patient has moist mucous membranes. NECK: Supple. Trachea midline. CHEST/LUNGS: Clear to auscultated bilaterally, breathing nonlabored. No wheezes crackles or rhonchi. HEART/CARDIOVASCULAR: Regular in rate and rhythm. S1 and S2 positive. ABDOMEN: Abdomen is soft, nontender. Patient has normal bowel sounds. SKIN: There is no rash. Warm and dry. NEURO: No focal motor deficit. Follows command. MUSCULOSKELETAL: No joint effusion or tenderness. EXTRIMITY: No edema, no cyanosis or clubbing. PSYCH: Cooperative. - Constitutional Vitals: Temp Pulse Resp BP Pulse Ox 96.7 F L 83 20 124/80 99 08/22/16 09:11 08/22/16 13:28 08/22/16 09:11 08/22/16 13:28 08/22/16 13:28 General appearance: Present: no acute distress, well-nourished Results - Labs CBC & Chem 7: 08/22/16 11:47 08/22/16 11:47 Labs: Laboratory Last Values WBC 8.3 K/mm3 (4.5-11.0) 08/22/16 11:47 RBC 4.30 M/mm3 (3.65-5.03) 08/22/16 11:47 Hgb 12.1 gm/dl (10.1-14.3) 08/22/16 11:47 Hct 36.8 % (30.3-42.9) 08/22/16 11:47 MCV 86 fl (79-97) 08/22/16 11:47 MCH 28 pg (28-32) 08/22/16 11:47 MCHC 33 % (30-34) 08/22/16 11:47 RDW 13.9 % (13.2-15.2) 08/22/16 11:47 Plt Count 200 K/mm3 (140-440) 08/22/16 11:47 Lymph % (Auto) 35.9 % (13.4-35.0) H 08/21/16 06:51 [place] % (Auto) 8.5 % (0.0-7.3) H 08/21/16 06:51 Eos % (Auto) 2.3 % (0.0-4.3) 08/21/16 06:51 Baso % (Auto) 0.2 % (0.0-1.8) 08/21/16 06:51 Lymph # 3.0 K/mm3 (1.2-5.4) 08/21/16 06:51 [place] # 0.7 K/mm3 (0.0-0.8) 08/21/16 06:51 Eos # 0.2 K/mm3 (0.0-0.4) 08/21/16 06:51 Baso # 0.0 K/mm3 (0.0-0.1) 08/21/16 06:51 Seg Neutrophils % 53.1 % (40.0-70.0) 08/21/16 06:51 Seg Neutrophils # 4.5 K/mm3 (1.8-7.7) 08/21/16 06:51 Sodium 139 mmol/L (137-145) 08/22/16 11:47 Potassium 3.6 mmol/L (3.6-5.0) 08/22/16 11:47 Chloride 102.4 mmol/L (98-107) 08/22/16 11:47 Carbon Dioxide 24 mmol/L (22-30) 08/22/16 11:47 Anion Gap 16 mmol/L 08/22/16 11:47 BUN 2 mg/dL (7-17) L 08/22/16 11:47 Creatinine 0.4 mg/dL (0.7-1.2) L 08/22/16 11:47 Estimated GFR > 60 ml/min 08/22/16 11:47 BUN/Creatinine Ratio 5.00 % 08/22/16 11:47 Glucose 117 mg/dL (65-100) H 08/22/16 11:47 POC Glucose 174 (70-105) H 08/22/16 13:33 Calcium 8.5 mg/dL (8.4-10.2) 08/22/16 11:47 Magnesium 5.2 mg/dL (1.7-2.3) H 08/17/16 06:30 Total Bilirubin 0.3 mg/dL (0.1-1.2) 08/22/16 11:47 AST 28 units/L (5-40) 08/22/16 11:47 ALT 30 units/L (7-56) 08/22/16 11:47 Alkaline Phosphatase 81 units/L (35-129) 08/22/16 11:47 Total Protein 5.4 g/dL (6.3-8.2) L 08/22/16 11:47 Albumin 2.7 g/dL (3.9-5) L 08/22/16 11:47 Albumin/Globulin Ratio 1.0 % 08/22/16 11:47 Amylase 105 units/L (27-131) 08/22/16 11:47 Lipase 78 units/L (13-60) H 08/22/16 11:47 Urine Color Yellow (Yellow) 08/16/16 17:20 Urine Turbidity Clear (Clear) 08/16/16 17:20 Urine pH 5.0 (5.0-7.0) 08/16/16 17:20 Ur Specific [place] 1.025 (1.003-1.030) 08/16/16 17:20 Urine Protein 30 mg/dl mg/dL (Negative) 08/16/16 17:20 Urine Glucose (UA) >=500 mg/dL (Negative) 08/16/16 17:20 Urine Ketones 80 mg/dL (Negative) 08/16/16 17:20 Urine Blood Lg (Negative) 08/16/16 17:20 Urine Nitrite Neg (Negative) 08/16/16 17:20 Urine Bilirubin Neg (Negative) 08/16/16 17:20 Urine Urobilinogen < 2.0 mg/dL (<2.0) 08/16/16 17:20 Ur Leukocyte Esterase Neg (Negative) 08/16/16 17:20 Urine WBC (Auto) 20.0 /HPF (0.0-6.0) H 08/16/16 17:20 Urine RBC (Auto) 15.0 /HPF (0.0-6.0) 08/16/16 17:20 Urine Mucus Few /HPF 08/16/16 17:20 Urine Yeast (Budding) Few /HPF 08/16/16 17:20 Urine Total Volume 2350 08/16/16 17:20 Ur Total Protein 24 Hr 869.50 (2-200) H 08/16/16 17:20 Urine Total Protein 37 mg/dL (5-11.8) H 08/16/16 17:20 Urine Opiates Screen Presumptive negative 08/16/16 17:20 Urine Methadone Screen Presumptive negative 08/16/16 17:20 Ur Barbiturates Screen Presumptive negative 08/16/16 17:20 Ur Phencyclidine Scrn Presumptive negative 08/16/16 17:20 Ur Amphetamines Screen Presumptive negative 08/16/16 17:20 U Benzodiazepines Scrn Presumptive negative 08/16/16 17:20 Urine Cocaine Screen Presumptive negative 08/16/16 17:20 U Marijuana (THC) Screen Presumptive negative 08/16/16 17:20 Drugs of Abuse Note Disclamer 08/16/16 17:20 Hepatitis A IgM Ab -1 (NonReactive) 08/16/16 19:11 Hep Bs Antigen Non-reactive (Negative) 08/16/16 19:11 Hep B Core IgM Ab Non-reactive (NonReactive) 08/16/16 19:11 Hepatitis C Antibody Non-reactive (NonReactive) 08/16/16 19:11 Blood Type O NEGATIVE 08/16/16 19:11 Antibody Screen Positive 08/16/16 19:11 Antibody Identification Anti-D (Passively Aquired) 08/16/16 19:11
== END 2016-08-22 15:30 | disposition home or self-care (01) | DRG 781 ==
LOC: TRG 16:32 → LD 17:47 → TRG 18:00 → LD 18:01 → TRG 08-22 14:46
PROVIDERS: ADMIT Obstetrics & Gynecology; ATTEND Obstetrics & Gynecology
DX: O11.3 Pre-existing hypertension with pre-eclampsia, third trimester (principal); O24.113 Pre-existing type 2 diabetes mellitus, in pregnancy, third trimester; E11.43 Type 2 diabetes mellitus with diabetic autonomic (poly)neuropathy; K31.84 Gastroparesis; O99.213 Obesity complicating pregnancy, third trimester; E66.01 Morbid (severe) obesity due to excess calories; O26.893 Other specified pregnancy related conditions, third trimester; E87.6 Hypokalemia; O34.219 Maternal care for unspecified type scar from previous cesarean delivery; Z3A.29 29 weeks gestation of pregnancy; Z91.19 Patient's noncompliance with other medical treatment and regimen
CPT/HCPCS: 36415; 76805; 76819; 80053; 80074; 80307; 81001; 82150; 82962; 83690; 83735; 84156; 85025; 85027; 86850; 86870; 86900; 86901; J0360; J1815; J2405; J2765; J3105; J3475; J3480; J7120

== ENCOUNTER 2016-08-25 13:41 | Outpatient (CLI) | payer MEDICAID ==
[2016-08-25] MEDS ORDERED: LACTATED RINGERS 500 ML IV ONE (14:14)
[2016-08-25] MEDS ORDERED: ZOFRAN IV PRN (14:51)
[2016-08-25] MEDS ORDERED: D50W (25GM) IV PRN (14:52)
[2016-08-25 14:54] LABS: Urine Drugs of Abuse Note Disclamer
[2016-08-25 15:09] LABS: Bilirubin,Urine NEG (Negative); Blood,Urine NEG (Negative); Ketones,Urine 80 mg/dL (Negative); Leukocyte Esterase,Urine TR (Negative); Mucus,Urine 3+ /HPF; Nitrite,Urine NEG (Negative); Urobilinogen,Urine < 2.0 mg/dL (<2.0)
[2016-08-25] MEDS ORDERED: REGLAN IV PRN (15:12)
--- NOTE | 2016-08-25 15:18 | History and Physical Report ---
History of Present Illness Date of examination: 08/25/16 History of present illness: 26-year-old at 31+1 weeks presents with above complaints and issues, she is a life cycle [employer] patient. Essential history is received a call from the [employer] office about above. Patient with nausea vomiting, history of diabetes and hypertension. Was seen at [facility] office and was sent here for fluid hydration and labs by Dr. Garcia of [facility]. In office, her BPP was 8/8 Patient is well known to me from her recent admission. She presented with similar complaints on 08/16/16 was admitted and D/adam on 08/22/16. Below is a summary of her admission: She was admitted to the floor and 24 hr urine protein collection started. Result was ~ 800 and patient was diagnosed with CHTN with superimposed Pre- Eclampsia. Her Labetalol was increased to 800mg every 8 hrs and then Amlodipine 10mg QD was started after internal medicine consult. She was started on her insulin regimen and sliding scale insulin was also started. In triage here, she is not vomiting but appears more likely to have Ptyalism. Her BP is 118/90, she denies LONGORIA, scotomata or epigastric pain. She does complain of "difficulty swallowing occasionally". She points to hersternal area as a location where food appears to get stuck. 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 denies: smoking, alcohol abuse, prescription drug abuse, IV drug use - Obstetrical History Expected Date of Delivery: 10/26/16 Actual Gestation: 31 Week(s) 1 Day(s) : 3 Para: 1 Medications and Allergies Allergies Allergy/AdvReac Type Severity Reaction Status Date / Time No Known Allergies Allergy Unverified 08/02/16 14:48 Home Medications Medication Instructions Recorded Confirmed Last Taken Type Pnv with Ca,No.72/Iron/FA [Pnv 1 tab PO DAILY 08/19/16 08/19/16 08/16/16 10:00 History Plus Multivit Tab] 1 tab Labetalol [Normodyne TAB] 200 mg PO BID #120 tablet 08/22/16 Unknown Rx amLODIPine [Norvasc] 10 mg PO DAILY #30 tab 08/22/16 Unknown Rx Metoclopramide [Reglan] 10 mg PO TID #30 tab 08/25/16 Unknown Rx Ondansetron [Zofran Odt] 8 mg PO Q8HR #30 tab.rapdis 08/25/16 Unknown Rx Active Meds: Active Medications Dextrose (D50w (25gm)) 50 ml IV PRN PRN PRN Reason: Hypoglycemia Insulin Human Regular (Novolin R) 0 units SUB-Q Q6HR LAURY PRN Reason: Protocol Metoclopramide HCl (Reglan) 10 mg IV Q6H PRN PRN Reason: Nausea And Vomiting Review of Systems Constitutional: no weight loss, no fever, no chills, no sweats, no fatigue, no chronic headaches Eyes: no diplopia, no photophobia, no blind spots Cardiovascular: no chest pain, no orthopnea, no syncope, no lightheadedness, no shortness of breath Respiratory: no shortness of breath, no dyspnea on exertion Gastrointestinal: nausea, indigestion, no abdominal pain, no vomiting (More sputum production) Genitourinary: no vaginal bleeding, no vaginal discharge, no leakage of fluid - Vital Signs Vital signs: Vital Signs Pulse Pulse Ox 113 H 98 08/25/16 14:13 08/25/16 14:13 Temp Pulse Resp BP Pulse Ox 75 140/93 99 08/25/16 15:15 08/25/16 15:14 08/25/16 15:15 - Physical Exam Abdomen: Positive: normal appearance, soft. Negative: distention, tenderness, guarding, rigidity Results Abnormal lab results 08/25/16 Range/Units 14:29 POC Glucose 189 H (70-105) All other labs normal. Assessment and Plan A: 26 y/o at 31 1/7 weeks w/ suspected dehydration -s/p BPP in [facility] office today and is 03/06 Issues -Essential hypertension with superimposed preeclampsia, severe by BP criteria -Type 2 IDDM -Gastroparesis -Previous C/S -Obesity -Rh negative -?Dysphagia (??related to gastroparesis) Plan: -IV bolus LR now -Obtain labs including CMP, CBC, UDS, Amylase and Lipase -Start Reglan per pt request (claims Zofran does not work) -Continue outpatinet Meds -SSI protocol -Recommend BMZ course at 34 wks -Consider GI input for her Dysphagia on outpatient basis - Patient Problems (1) 31 weeks gestation of Current Visit: Yes Status: Acute
[2016-08-25 15:30] LABS: Basophils % (Auto) 0.1 % (0.0-1.8); Hematocrit 41.6 % (30.3-42.9); Hemoglobin 14.2 gm/dl (10.1-14.3); Mean Corpuscular HGB Conc 34 % (30-34); Mean Corpuscular Hemoglobin 29 pg (28-32); Mean Corpuscular Volume 84 fl (79-97); Platelet Count 306 K/mm3 (140-440); Red Blood Count 4.95 M/mm3 (3.65-5.03); Red Cell Distribution Width 13.4 % (13.2-15.2); White Blood Count 14.4 K/mm3 (4.5-11.0)
[2016-08-25 15:48] LABS: Alanine Aminotransferase 35 units/L (7-56); Albumin 3.7 g/dL (3.9-5); Albumin/Globulin Ratio 0.9 %; Alkaline Phosphatase 119 units/L (35-129); Amylase 214 units/L (27-131); Bilirubin,Total 0.6 mg/dL (0.1-1.2); Blood Urea Nitrogen 9 mg/dL (7-17); Calcium 9.4 mg/dL (8.4-10.2); Carbon Dioxide 21 mmol/L (22-30); Chloride 96.2 mmol/L (98-107); Glucose 192 mg/dL (65-100); Lipase 201 units/L (13-60); Potassium 3.9 mmol/L (3.6-5.0); Sodium 137 mmol/L (137-145); Total Protein 7.6 g/dL (6.3-8.2)
[2016-08-25 15:57] LABS: Anion Gap 24 mmol/L
[2016-08-25 16:15] VITALS: BP 130/81
== END 2016-08-25 17:27 | disposition home or self-care (01) ==
LOC: TRG 13:41
PROVIDERS: ATTEND Obstetrics & Gynecology
DX: O77.9 Labor and delivery complicated by fetal stress, unspecified (principal); O47.9 False labor, unspecified; Z3A.00 Weeks of gestation of pregnancy not specified
CPT/HCPCS: 36415; 59025; 80053; 80307; 81001; 82150; 82962; 83690; 85025; 96360; 96372; J2765; J7120; J1815

== ENCOUNTER 2016-09-05 12:42 | Inpatient (IN) | payer MEDICAID ==
[2016-09-05] MEDS ORDERED: LACTATED RINGERS 500 ML IV ONE (14:00)
[2016-09-05 15:08] LABS: Hematocrit 40.7 % (30.3-42.9); Hemoglobin 13.6 gm/dl (10.1-14.3); Mean Corpuscular HGB Conc 33 % (30-34); Mean Corpuscular Hemoglobin 28 pg (28-32); Mean Corpuscular Volume 83 fl (79-97); Platelet Count 225 K/mm3 (140-440); Red Blood Count 4.89 M/mm3 (3.65-5.03); Red Cell Distribution Width 13.7 % (13.2-15.2); White Blood Count 9.1 K/mm3 (4.5-11.0)
[2016-09-05 15:24] LABS: Bilirubin,Urine SM (Negative); Blood,Urine NEG (Negative); Ketones,Urine 20 mg/dL (Negative); Leukocyte Esterase,Urine TR (Negative); Mucus,Urine 3+ /HPF; Nitrite,Urine NEG (Negative)
[2016-09-05 16:11] LABS: Alanine Aminotransferase 145 units/L (7-56)
[2016-09-05] MEDS ORDERED: LACTATED RINGERS 1,000 ML ONE ×2 (17:46→19:54)
[2016-09-05] MEDS ORDERED: MAGNESIUM SULFATE 4GM/100ML 4 GM/100 ML BAG IV ONE ×2 (17:55→19:30)
[2016-09-05] MEDS ORDERED: REGLAN IV SCH (18:28)
[2016-09-05] MEDS ORDERED: PEPCID IV SCH (18:28)
[2016-09-05] MEDS ORDERED: BICITRA PO SCH (18:28)
--- NOTE | 2016-09-05 18:30 | History and Physical Report ---
History of Present Illness Date of examination: 09/05/16 Chief complaint: Elevated BP in office History of present illness: 26-year-old at 32+5 weeks presents with above complaints and issues, she is a life cycle [employer] patient. Patient is well known to me from her prior 2 admissions. She was diagnosed with CHTN with superimposed Pre-Eclampsia, she is also a diabetic. In triage here, Her BP is elevated with range 130-180's/70-100's. HELLP labs are now abnormal with increase in her transaminases she denies LONGORIA, scotomata or epigastric pain. Past History Past Medical History: heart disease, diabetes Past Surgical History: section [employer] History: denies: chlamydia, gonorrhea, hepatitis B, hepatitis C, herpes, HIV , syphilis Social history: single, full code. denies: smoking, alcohol abuse, IV drug use - Obstetrical History Expected Date of Delivery: 10/26/16 Actual Gestation: 32 Week(s) 5 Day(s) : 3 Para: 1 Medications and Allergies Allergies Allergy/AdvReac Type Severity Reaction Status Date / Time No Known Allergies Allergy Unverified 08/02/16 14:48 Home Medications Medication Instructions Recorded Confirmed Last Taken Type Pnv with Ca,No.72/Iron/FA [Pnv 1 tab PO DAILY 08/19/16 08/19/16 08/16/16 10:00 History Plus Multivit Tab] 1 tab Labetalol [Normodyne TAB] 200 mg PO BID #120 tablet 08/22/16 Unknown Rx amLODIPine [Norvasc] 10 mg PO DAILY #30 tab 08/22/16 Unknown Rx Metoclopramide [Reglan] 10 mg PO TID #30 tab 08/25/16 Unknown Rx Ondansetron [Zofran Odt] 8 mg PO Q8HR #30 tab.rapdis 08/25/16 Unknown Rx Active Meds: Active Medications Betamethasone Acet/Betameth SodPhos (Celestone Soluspan) 12 mg IM ONCE ONE Stop: 09/05/16 19:01 Review of Systems Constitutional: no weight gain, no fever, no chills Cardiovascular: high blood pressure, no chest pain, no orthopnea, no edema, no syncope, no shortness of breath, no dyspnea on exertion Respiratory: no shortness of breath, no dyspnea on exertion Gastrointestinal: no abdominal pain, no nausea, no vomiting Genitourinary: no vaginal bleeding, no vaginal discharge - Vital Signs Vital signs: Vital Signs Pulse BP 94 H 147/106 09/05/16 13:36 09/05/16 13:36 Temp Pulse Resp BP Pulse Ox 104 H 186/130 09/05/16 17:57 09/05/16 17:57 - Physical Exam Cardiovascular: Regular rate, Normal S1, Normal S2 Lungs: Positive: Clear to auscultation, Normal air movement Abdomen: Positive: normal appearance, soft. Negative: distention, tenderness, guarding, rigidity Genitourinary (Female): Positive: normal external genitalia Uterus: Positive: enlarged (EFW ~ 3400). Negative: tender Adnexa: both: normal Extremities: Positive: normal - Obstetrical FHR: category 1 Results Result Diagrams: 09/05/16 14:30 09/05/16 13:46 Abnormal lab results 09/05/16 09/05/16 09/05/16 Range/Units 13:46 13:46 14:30 Creatinine 0.5 L (0.7-1.2) mg/dL AST 104 H (5-40) units/L ALT 145 H (7-56) units/L Lactate Dehydrogenase 197 H (91-180) units/L Urine WBC (Auto) 14.0 H (0.0-6.0) /HPF All other labs normal. Assessment and Plan 26 y/o at 32+5 wks with superimposed Pre-E on CHTN -Cat 1 tracing Issues -Abnormal transaminases -Elevated BP -Prior # 1 -Desires BTL P: -Admit -Start IV mag and celestone now -Proceed to the OR for repeat LTCS and BTL -She has been consented - Patient Problems (1) 32 weeks gestation of Current Visit: Yes Status: Acute (2) Pre-eclampsia superimposed on chronic hypertension, antepartum Current Visit: No Status: Acute (3) Pregestational diabetes mellitus, modified White class B Onset Date: 08/18/16 Current Visit: No Status: Acute
[2016-09-05] MEDS ORDERED: ANCEF/STERILE WATER 2 GM/20 ML IV NR (19:00)
[2016-09-05] MEDS ORDERED: CELESTONE SOLUSPAN IM ONE (19:00)
[2016-09-05] MEDS ORDERED: LACTATED RINGERS 1,000 ML IV SCH (19:00)
[2016-09-05] MEDS ORDERED: PITOCin/NS 20 UNIT/1000ML DRIP 20 UNIT/1,000 ML BAG IV SCH ×2 (19:00→22:00)
[2016-09-05] MEDS ORDERED: MORPHINE ONE (19:27)
--- NOTE | 2016-09-05 19:27 | Anesthesia Consultation ---
Anesthesia Consult and Med Hx Date of service: 09/05/16 - Airway Anesthetic Teeth Evaluation: Good ROM Head & Neck: Adequate Mental/Hyoid Distance: Adequate Mallampati Class: Class II Intubation Access Assessment: Probably Good - Pulmonary Exam CTA: Yes - Cardiac Exam Cardiac Exam: RRR - Pre-Operative Health Status ASA Pre-Surgery Classification: ASA2 Proposed Anesthetic Plan: Spinal - Pulmonary Hx Asthma: No COPD: No Hx Pneumonia: No - Cardiovascular System Hx Hypertension: Yes - Central Nervous System Hx Seizures: No Hx Psychiatric Problems: No - Endocrine Hx Renal Disease: No Hx End Stage Renal Disease: No Hx Hypothyroidism: No Hx Hyperthyroidism: No - Hematic Hx Anemia: No Hx Sickle Cell Disease: No - Other Systems Hx Alcohol Use: No
--- NOTE | 2016-09-05 19:27 | Anesthesia Day of Surgery ---
Anesthesia Day of Surgery - Day of Surgery Patient Examined: Yes Patient H&P Reviewed: Yes Patient is NPO: Yes
[2016-09-05] MEDS ORDERED: NACL 0.9% IR ONE (19:45)
[2016-09-05] MEDS ORDERED: WATER FOR IRRIG STERILE IR ONE (19:45)
[2016-09-05] MEDS ORDERED: ePHEDrine SULFATE ONE (19:46)
[2016-09-05] MEDS ORDERED: ZOFRAN ONE (20:03)
[2016-09-05] MEDS ORDERED: NORMODYNE IV ONE (20:16)
[2016-09-05] MEDS ORDERED: TORADOL ONE (20:41)
--- NOTE | 2016-09-05 21:04 | Operative Report ---
Operative Report Operative Report: DATE: 09/05/2016 PREOPERATIVE DIAGNOSIS: 26-year-old at 32+5 weeks, superimposed preeclampsia on chronic hypertension, DM 2, Prior POSTOP DIAGNOSIS: Same Plus adhesions NAME OF PROCEDURE: Repeat low transverse section with bilateral tubal ligation SURGEON: DAVID HOLLY MD [employer]: [] ANESTHESIA:Spinal EBL: 700 mL PATHOLOGY SPECIMEN: None URINE OUTPUT: 50 mL FINDINGS: Female in cephalic presentation, time of delivery is 20:07, infant weight 5 lbs. 0 oz. or 2276 g, Apgars 8 and 9, Moderate adhesions, normal uterus tubes and ovaries bilaterally DESCRIPTION OF PROCEDURE: She was taken to the operating room where she was prepped and draped in a sterile fashion, she was placed in the dorsal supine position. Pfannenstiel incision was performed through her prior incisional scar which was carried through to underlying rectus fascia which was on the midline. The fascial incision was extended laterally with use of Stephen scissors , the anterior leaf was then grasped with Kochers forceps elevated dissected sharply and bluntly off the underlying rectus in a similar fashion inferior leaf was grasped elevated dissected sharply and bluntly off the underlying rectus. The rectus was in the midline, good visualization of bladder was noted. A bladder blade was placed in the patient's pelvic cavity; bladder flap was created. A hysterotomy incision was then performed in the lower segment with clear amniotic fluid noted, hysterotomy incision was extended laterally with the use of fingers manually. Infant in cephalic presentation was delivered in the usual manner; cord was clamped and cut infant was handed over to waiting nursery staff. The placenta was then delivered manually intact , the uterus was exteriorized cleared of all clots and debris. Hysterotomy incision was then closed in a running locked fashion with 0 Vicryl on a CTX; using the same suture was imbricate the initial layer. Interrupted figure-of- eight stitches were used to obtain hemostasis. Uterus was then returned to the patient's pelvic cavity; peritoneal edges were grasped with hemostats and Karen' s elevated copiously irrigation was used to clear the gutters of all clots and debris. Tercel hemostatic agent was then applied to the hysterotomy incision as a means to prevent future bleeding. The peritoneal layer was then closed in a running fashion with 3-0 Vicryl and the rectus was reapproximated with a single [id number] stitch. The fascia was closed in a running fashion with 0 Vicryl and tied in the opposite side. The subcutaneous layer was irrigated and then reapproximated with interrupted [id number] stitches. The skin was closed in a subcuticular manner with 4-0 Vicryl. She tolerated the procedure well lap and instrument counts were correct 2 she did receive 2 g of Ancef prior to incision she is transferred to PACU in stable condition thank you.
[2016-09-05] MEDS ORDERED: PERCOCET 5/325 PO PRN (21:07)
[2016-09-05] MEDS ORDERED: LANSINOH TP PRN (21:07)
[2016-09-05] MEDS ORDERED: TUCKS PAD TP PRN (21:07)
[2016-09-05] MEDS ORDERED: ZOFRAN IV PRN (21:07)
[2016-09-05] MEDS ORDERED: MOTRIN PO PRN (21:07)
[2016-09-05] MEDS ORDERED: ANUCORT-HC PR PRN (21:07)
[2016-09-05] MEDS ORDERED: NARCAN 0.4 MG/1 ML IV PRN (21:07)
[2016-09-05] MEDS ORDERED: SENOKOT PO PRN (21:07)
[2016-09-05] MEDS ORDERED: MYLICON PO PRN (21:07)
[2016-09-05] MEDS ORDERED: TYLENOL PO PRN (21:07)
[2016-09-05] MEDS ORDERED: PHENERGAN PR PRN (21:16)
[2016-09-05] MEDS ORDERED: DILAUDID IV PRN (21:16)
[2016-09-05] MEDS ORDERED: PHENERGAN PO PRN (21:16)
--- NOTE | 2016-09-05 21:16 | Post Anesthesia Evaluation ---
- Post Anesthesia Evaluation Patient Participated: Yes Airway Patent: Yes Stable Respiratory Function: Yes Nausea/Vomiting: No Temp > 96.8F: Yes Pain Manageable: Yes Adequeate Hydration: Yes Anesthesia Complications: No Block Receding Appropriately: Yes Patient on Ventilator: No
[2016-09-05] MEDS ORDERED: MAGNESIUM SULFATE 40GM/1000ML 40 GM/1,000 ML BAG IV ONE ×2 (21:17→23:18)
[2016-09-05] MEDS ORDERED: MAGNESIUM SULFATE 40GM/1000ML 40 GM/1,000 ML BAG IV SCH (21:30)
[2016-09-05] MEDS: NORMODYNE PO SCH (21:43)
[2016-09-05] MEDS ORDERED: D5LR 1,000 ML IV SCH (22:00)
[2016-09-05] MEDS ORDERED: SODIUM CHLORIDE FLUSH SYRINGE 10 ML IV PRN (22:00)
[2016-09-05] MEDS ORDERED: APRESOLINE IV ONE (23:19)
[2016-09-05] MEDS ORDERED: APRESOLINE IV PRN (23:59)
[2016-09-05] MEDS ORDERED: NORMODYNE IV PRN (23:59)
[2016-09-06 04:13] LABS: Basophils % (Auto) 0.1 % (0.0-1.8)
[2016-09-06 04:16] LABS: Hematocrit 36.7 % (30.3-42.9); Mean Corpuscular HGB Conc 33 % (30-34); Mean Corpuscular Hemoglobin 28 pg (28-32); Mean Corpuscular Volume 84 fl (79-97); Platelet Count 227 K/mm3 (140-440); Red Blood Count 4.36 M/mm3 (3.65-5.03); Red Cell Distribution Width 13.2 % (13.2-15.2)
[2016-09-06] MEDS: TORADOL IV SCH ×2 (07:42→14:15)
[2016-09-06] MEDS: NORMODYNE PO SCH ×3 (07:45→22:23)
[2016-09-06] MEDS ORDERED: PRENATAL VITAMIN PO SCH (10:00)
[2016-09-06] MEDS ORDERED: FEOSOL PO SCH (10:00)
--- NOTE | 2016-09-06 10:26 | Progress Note ---
Assessment and Plan A: POD #1 CHTN with superimposed preeclampsia DM P: Follow Routine PostOp Orders Continue Magnesium Sulfate 24hours postOp Subjective - Subjective Date of service: 09/06/16 Patient reports: appetite normal, voiding normally (mcduffie in place; adquate Urinary Output), pain well controlled, flatus Jelm: doing well, in NICU Objective - Vital Signs Latest vital signs: Vital Signs Temp Pulse Pulse Resp BP BP Pulse Ox 09/06/16 08:30 97.7 F 62 18 117/77 09/06/16 07:45 124/72 09/06/16 06:35 98.6 F 72 22 119/73 09/06/16 00:00 98.6 F 68 22 131/78 09/05/16 23:29 64 170/110 09/05/16 23:05 58 L 10 L 174/107 99 09/05/16 22:35 97.5 F L 57 L 8 L 174/114 98 09/05/16 22:20 61 9 L 160/109 99 09/05/16 22:05 58 L 9 L 161/107 99 09/05/16 21:50 62 8 L 160/106 99 09/05/16 21:43 83 167/107 09/05/16 21:36 56 L 9 L 167/107 99 09/05/16 21:20 66 12 141/103 99 09/05/16 21:15 59 L 16 148/94 98 09/05/16 21:10 61 16 142/94 98 09/05/16 21:05 97.5 F L 63 15 142/93 99 09/05/16 19:13 110 H 89 09/05/16 17:57 104 H 186/130 09/05/16 17:41 107 H 151/122 09/05/16 17:26 96 H 140/97 09/05/16 17:11 103 H 09/05/16 16:56 84 148/94 09/05/16 16:41 70 151/91 09/05/16 16:26 78 149/91 09/05/16 16:11 104 H 144/103 09/05/16 15:56 76 136/94 09/05/16 15:41 95 H 127/96 09/05/16 15:26 86 134/96 09/05/16 15:11 83 139/102 09/05/16 14:56 81 140/112 09/05/16 14:51 92 H 160/120 09/05/16 14:36 74 165/116 09/05/16 14:21 110 H 168/102 09/05/16 14:07 107 H 09/05/16 13:51 89 144/113 09/05/16 13:36 94 H 147/106 Intake and Output 09/05/16 09/06/16 09/06/16 22:59 06:59 14:59 Intake Total 1900 473 Output Total 200 75 400 Balance 1700 398 -400 Intake: IV 1900 473 Lactated Ringers 1,000 ml 1000 @ 2250 mls/hr IV PREOP LAURY Rx#:[id number] MAGNESIUM SULFATE 4GM/ 100 100ML 4 gm In 100 ml @ 25 mls/hr IV ONCE ONE Rx#: [id number] Output: Urine 200 75 400 Indwelling Catheter 400 Uretheral (Mcduffie) 75 75 Other: Total, Output Amount 400 - Exam Breasts: Present: normal Cardiovascular: Present: Regular rate Lungs: Present: Clear to auscultation Abdomen: Present: normal appearance, soft, normal bowel sounds Uterus: Present: normal, firm, fundal height below umbilicus Incision: Present: normal, dry, dressed - Labs Labs: Abnormal lab results 09/05/16 09/05/16 09/05/16 Range/Units 13:46 13:46 14:30 WBC (4.5-11.0) K/mm3 Lymph % (Auto) (13.4-35.0) % Seg Neutrophils % (40.0-70.0) % Seg Neutrophils # (1.8-7.7) K/mm3 Creatinine 0.5 L (0.7-1.2) mg/dL Magnesium (1.7-2.3) mg/dL AST 104 H (5-40) units/L ALT 145 H (7-56) units/L Lactate Dehydrogenase 197 H (91-180) units/L Urine WBC (Auto) 14.0 H (0.0-6.0) /HPF 09/05/16 09/06/16 09/06/16 Range/Units 22:22 03:24 03:25 WBC 18.0 H (4.5-11.0) K/mm3 Lymph % (Auto) 8.0 L (13.4-35.0) % Seg Neutrophils % 87.8 H (40.0-70.0) % Seg Neutrophils # 15.8 H (1.8-7.7) K/mm3 Creatinine (0.7-1.2) mg/dL Magnesium 2.4 H 4.3 H (1.7-2.3) mg/dL AST (5-40) units/L ALT (7-56) units/L Lactate Dehydrogenase (91-180) units/L Urine WBC (Auto) (0.0-6.0) /HPF 09/06/16 Range/Units 06:00 WBC (4.5-11.0) K/mm3 Lymph % (Auto) (13.4-35.0) % Seg Neutrophils % (40.0-70.0) % Seg Neutrophils # (1.8-7.7) K/mm3 Creatinine (0.7-1.2) mg/dL Magnesium 4.8 H (1.7-2.3) mg/dL AST (5-40) units/L ALT (7-56) units/L Lactate Dehydrogenase (91-180) units/L Urine WBC (Auto) (0.0-6.0) /HPF
[2016-09-06 10:39] LABS: Hematocrit 33.3 % (30.3-42.9)
[2016-09-06 10:57] LABS: Alanine Aminotransferase 101 units/L (7-56); Lactate Dehydrogenase 289 units/L (91-180)
--- NOTE | 2016-09-06 14:03 | Progress Note ---
Subjective Date of service: 09/06/16 Interval history: 1st POD after Patient is in the bed, comfortable. Pain is well under control. No residual neurological deficit. No anesthesia complications Objective - Constitutional Vitals: Vital Signs - 12hr 09/06/16 09/06/16 09/06/16 06:35 07:45 08:30 Temperature 98.6 F 97.7 F Pulse Rate [ 72 62 Left] Respiratory 22 18 Rate Blood Pressure 124/72 Blood Pressure 119/73 117/77 [Left Arm] - Labs CBC & Chem 7: 09/06/16 10:17 09/05/16 13:46 Labs: Abnormal lab results 09/05/16 09/05/16 09/05/16 Range/Units 13:46 13:46 14:30 WBC (4.5-11.0) K/mm3 Lymph % (Auto) (13.4-35.0) % Seg Neutrophils % (40.0-70.0) % Seg Neutrophils # (1.8-7.7) K/mm3 Creatinine 0.5 L (0.7-1.2) mg/dL Magnesium (1.7-2.3) mg/dL AST 104 H (5-40) units/L ALT 145 H (7-56) units/L Lactate Dehydrogenase 197 H (91-180) units/L Urine WBC (Auto) 14.0 H (0.0-6.0) /HPF 09/05/16 09/06/16 09/06/16 Range/Units 22:22 03:24 03:25 WBC 18.0 H (4.5-11.0) K/mm3 Lymph % (Auto) 8.0 L (13.4-35.0) % Seg Neutrophils % 87.8 H (40.0-70.0) % Seg Neutrophils # 15.8 H (1.8-7.7) K/mm3 Creatinine (0.7-1.2) mg/dL Magnesium 2.4 H 4.3 H (1.7-2.3) mg/dL AST (5-40) units/L ALT (7-56) units/L Lactate Dehydrogenase (91-180) units/L Urine WBC (Auto) (0.0-6.0) /HPF 02/08/17 02/08/17 02/08/17 Range/Units 06:00 10:17 10:17 WBC (4.5-11.0) K/mm3 Lymph % (Auto) (13.4-35.0) % Seg Neutrophils % (40.0-70.0) % Seg Neutrophils # (1.8-7.7) K/mm3 Creatinine (0.7-1.2) mg/dL Magnesium 4.8 H 5.1 H (1.7-2.3) mg/dL AST 75 H (5-40) units/L ALT 101 H (7-56) units/L Lactate Dehydrogenase 289 H (91-180) units/L Urine WBC (Auto) (0.0-6.0) /HPF
[2016-09-06] MEDS ORDERED: M-M-R II VACCINE SUB-Q ONE (21:08)
[2016-09-07] MEDS ORDERED: BOOSTRIX IM ONE (06:00)
--- NOTE | 2016-09-07 10:31 | Progress Note ---
Assessment and Plan A. POD #2 S/P RCS/BTL CHTN with PIH Elevated LDH/LFT's BP now stable on Labetalol and pt asymptomatic for PIH PP labs pending P Continue PP care Repeat PIH labs Continue Labetalol DC in AM if remains stable. Subjective - Subjective Date of service: 09/07/16 (POD # 2) Patient reports: appetite normal, voiding normally, pain well controlled, ambulating normally Kane: doing well, in NICU, , nursing well, transported, other, bottle feeding Objective - Vital Signs Latest vital signs: Vital Signs Temp Pulse Pulse Resp BP BP 09/07/16 07:55 97.5 F L 70 18 104/65 09/07/16 05:00 98.5 F 66 20 118/66 09/07/16 00:50 97.3 F L 71 18 117/69 09/06/16 22:23 68 112/66 09/06/16 20:50 97.8 F 78 18 134/86 09/06/16 18:00 118/54 09/06/16 16:15 98.2 F 120/71 09/06/16 14:55 82 108/71 09/06/16 14:00 111/68 09/06/16 12:30 97.6 F 90/55 Intake and Output 09/06/16 09/07/16 09/07/16 22:59 06:59 14:59 Intake Total 1160 240 Output Total 1600 1600 Balance -440 -1600 240 Intake: IV 800 D5lr 1,000 ml @ 125 mls/ 450 hr IV DIRECT LAURY Rx#: [id number] MAGNESIUM SULFATE 40GM/ 350 1000ML 40 gm In 1,000 ml As IV .STK-MED ONE Rx#: [id number] Oral 360 240 Output: Urine 1600 1600 Indwelling Catheter 1600 Void 1600 Other: Total, Intake Amount 360 240 Total, Output Amount 800 800 - Exam Cardiovascular: Present: Regular rate Lungs: Present: Clear to auscultation Abdomen: Present: normal appearance, soft Vulva: both: normal Uterus: Present: normal, firm, fundal height at umbilicus, fundal height above umbilicus, fundal height below umbilicus Extremities: Present: normal Incision: Present: normal, dry, intact - Labs Labs: Abnormal lab results 09/06/16 09/06/1617 Range/Units 10:17 10:17 14:50 POC Glucose (70-105) Magnesium 5.1 H 5.6 H (1.7-2.3) mg/dL AST 75 H (5-40) units/L ALT 101 H (7-56) units/L Lactate Dehydrogenase 289 H (91-180) units/L 09/06/16 09/07/16 09/07/16 Range/Units 19:50 06:34 08:03 POC Glucose 194 H 194 H (70-105) Magnesium 5.9 H (1.7-2.3) mg/dL AST (5-40) units/L ALT (7-56) units/L Lactate Dehydrogenase (91-180) units/L
[2016-09-07 11:01] LABS: Hematocrit 36.3 % (30.3-42.9); Hemoglobin 11.5 gm/dl (10.1-14.3); Mean Corpuscular HGB Conc 32 % (30-34); Mean Corpuscular Hemoglobin 28 pg (28-32); Mean Corpuscular Volume 87 fl (79-97); Platelet Count 252 K/mm3 (140-440); Red Blood Count 4.16 M/mm3 (3.65-5.03); Red Cell Distribution Width 13.8 % (13.2-15.2); White Blood Count 12.2 K/mm3 (4.5-11.0)
[2016-09-07 11:21] LABS: Alanine Aminotransferase 84 units/L (7-56); Albumin 3.2 g/dL (3.9-5); Alkaline Phosphatase 128 units/L (35-129); Anion Gap 17 mmol/L; Bilirubin,Total 0.4 mg/dL (0.1-1.2); Blood Urea Nitrogen 5 mg/dL (7-17); Carbon Dioxide 21 mmol/L (22-30); Chloride 100.2 mmol/L (98-107); Glucose 267 mg/dL (65-100); Potassium 3.9 mmol/L (3.6-5.0); Sodium 134 mmol/L (137-145); Total Protein 6.5 g/dL (6.3-8.2)
[2016-09-07 12:26] LABS: Lactate Dehydrogenase 231 units/L (91-180)
--- NOTE | 2016-09-07 13:15 | Event Note ---
Date: 09/07/16 (Pt's baby being transferred [place] [facility] [place]. PT requests DC today. PIH labs resulted and LFT's now nearing NL. See DC note to follow. )
--- NOTE | 2016-09-07 13:20 | Discharge Summary ---
Providers - Providers Date of Admission: 09/05/16 12:45 Date of discharge: 09/07/16 Attending physician: FRANK AUGUSTINE MD Primary care physician: FRANK AUGUSTINE MD Hospitalization Reason for admission: IUP - Delivery: Procedure: section, bilateral tubal ligation Incision: normal Other procedures: none complications: none Discharge diagnosis: delivery Condition at discharge: Stable Disposition: DISCHARGED TO HOME OR SELFCARE Plan - Discharge Medications Prescriptions: Ibuprofen [Motrin 600 MG tab] 600 mg PO Q8H PRN #30 tablet PRN Reason: Pain Multivitamin with Iron [Multivitamins with Iron] 1 each PO DAILY #30 tablet NIFEdipine XL [Procardia Xl] 30 mg PO QDAY #30 tablet oxyCODONE /ACETAMINOPHEN [Percocet 5/325] 1 tab PO Q6HR PRN #30 tablet PRN Reason: Pain - Provider Discharge Summary Activity: no sex for 6 weeks, no heavy lifting 4 weeks, no strenuous exercise Diet: routine Instructions: routine Additional instructions: [] Smoking cessation referral if applicable(refer to patient education folder for contact #) [] Refer to [facility] Booklet Call your doctor immediately for: * Fever > 100.5 * Heavy vaginal bleeding ( >1 pad per hour) * Severe persistent headache * Shortness of breath * Reddened, hot, painful area to leg or breast * Drainage or odor from incision. * Keep incision clean and dry at all times and follow doctor's instructions regarding bathing/showering - Follow up plan Follow up: FRANK VUONG MD [Primary Care Provider] - [facility] [Provider Group] - 09/11/16
[2016-09-07] MEDS: NORMODYNE PO SCH (14:00)
[2016-09-07 18:01] VITALS: BP 102/84
== END 2016-09-07 16:15 | disposition home or self-care (01) | DRG 765 ==
LOC: TRG 12:42 → APU 12:45 → OB 09-06 00:04
PROVIDERS: ADMIT Obstetrics & Gynecology; ATTEND Obstetrics & Gynecology
PROC: 10D00Z1 Extraction of Products of Conception, Low, Open Approach (ICD-10-PCS; principal; 2016-09-05)
PROC: 0UL70ZZ Occlusion of Bilateral Fallopian Tubes, Open Approach (ICD-10-PCS; principal; 2016-09-05)
DX: O34.219 Maternal care for unspecified type scar from previous cesarean delivery (principal); O11.3 Pre-existing hypertension with pre-eclampsia, third trimester; O60.13X0 Preterm labor second trimester with preterm delivery third trimester, not applicable or unspecified; O24.429 Gestational diabetes mellitus in childbirth, unspecified control; Z37.0 Single live birth; Z3A.32 32 weeks gestation of pregnancy; Z30.2 Encounter for sterilization
CPT/HCPCS: 36415; 80053; 81001; 82565; 82962; 83615; 83735; 84450; 84460; 84550; 85014; 85018; 85025; 85027; 85461; 86850; 86870; 86900; 86901; C9250; J0360; J0690; J0702; J1885; J2270; J2405; J2590; J2765; J2790; J3475; J7120; J7121

== ENCOUNTER 2018-02-01 13:53 | Inpatient (IN) | payer MEDICAID, OTHER ==
[2018-02-01 15:29] LABS: Basophils % (Auto) 0.2 % (0.0-1.8); Eosinophils % (Auto) 0.4 % (0.0-4.3); Hematocrit 41.8 % (30.3-42.9); Hemoglobin 14.1 gm/dl (10.1-14.3); Lymphocytes # (Auto) 2.2 K/mm3 (1.2-5.4); Lymphocytes % (Auto) 23.8 % (13.4-35.0); Mean Corpuscular HGB Conc 34 % (30-34); Mean Corpuscular Hemoglobin 29 pg (28-32); Mean Corpuscular Volume 85 fl (79-97); Monocytes # (Auto) 0.6 K/mm3 (0.0-0.8); Monocytes % (Auto) 6.2 % (0.0-7.3); Platelet Count 304 K/mm3 (140-440); Red Blood Count 4.94 M/mm3 (3.65-5.03); Red Cell Distribution Width 13.4 % (13.2-15.2)
[2018-02-01 15:40] LABS: Alanine Aminotransferase 11 units/L (7-56); Albumin 4.5 g/dL (3.9-5); BUN/Creatinine Ratio 34; Blood Urea Nitrogen 17 mg/dL (7-17); Calcium 9.4 mg/dL (8.4-10.2); Hemolysis Index 53; Lipase 79 units/L (13-60)
[2018-02-01] MEDS ORDERED: ZOFRAN IV ONE (16:21)
[2018-02-01] MEDS ORDERED: SUBLIMAZE IV ONE (16:21)
[2018-02-01] MEDS ORDERED: NACL 0.9% 1000 ML 1,000 ML IV ONE (16:21)
--- NOTE | 2018-02-01 16:27 | Emergency Department Report ---
HPI - General Chief Complaint: Abdominal Pain Time Seen by Provider: 02/01/18 16:14 - HPI HPI: Room 26 The patient is a 27-year-old female presenting with a chief complaint of abdominal pain. The patient states the past 3-4 days she has had an intermittent epigastric abdominal pain described as aching in nature. Patient states she was first diagnosed with pancreatitis last year and this pain feels the same. The patient admits to nausea and vomiting but denies diarrhea. Patient admits to subjective fever. The patient currently gives her pain a score of 9/10 Location: Abdomen Duration: Intermittent 3-4 days Quality: Aching Severity: 9/10 Modifying factors: [see above] Context: [see above] Mode of transportation: [not driving] ED Past Medical Hx - Past Medical History Previous Medical History?: Yes Hx Hypertension: Yes Hx Diabetes: Yes Additional medical history: pancreatitis (first diagnosed 2016) - Surgical History Past Surgical History?: No Additional Surgical History: - Family History Family history: no significant - Social History Smoking Status: Never Smoker Substance Use Type: None (denies illicit drug use) - Medications Home Medications: Home Medications Medication Instructions Recorded Confirmed Last Taken Type Pnv,Calcium 72/Iron/Folic Acid 1 tab PO DAILY 08/19/16 09/06/16 08/16/16 10:00 History [Pnv Plus Multivit Tab] 1 tab Labetalol [Normodyne TAB] 200 mg PO BID #120 tablet 08/22/16 09/06/16 Unknown Rx amLODIPine [Norvasc] 10 mg PO DAILY #30 tab 08/22/16 09/06/16 Unknown Rx Metoclopramide [Reglan] 10 mg PO TID #30 tab 08/25/16 09/06/16 Unknown Rx Ondansetron [Zofran Odt] 8 mg PO Q8HR #30 tab.rapdis 08/25/16 09/06/16 Unknown Rx Ibuprofen [Motrin 600 MG tab] 600 mg PO Q8H PRN #30 tablet 09/06/16 Unknown Rx Multivitamin with Iron 1 each PO DAILY #30 tablet 09/06/16 Unknown Rx [Multivitamins with Iron] NIFEdipine XL [Procardia Xl] 30 mg PO QDAY #30 tablet 09/06/16 Unknown Rx oxyCODONE /ACETAMINOPHEN [Percocet 1 tab PO Q6HR PRN #30 tablet 09/06/16 Unknown Rx 5/325] ED Review of Systems ROS: Stated complaint: N/V ABD PAIN Other details as noted in HPI Constitutional: fever (subjective) Eyes: denies: eye pain ENT: denies: throat pain Cardiovascular: denies: chest pain Endocrine: denies: unexplained weight gain Gastrointestinal: abdominal pain, nausea, vomiting Genitourinary: denies: dysuria Musculoskeletal: myalgia. denies: back pain Skin: denies: change in color Neurological: denies: headache Physical Exam - Physical Exam Vital Signs: Vital Signs 02/01/18 14:00 Temperature 98 F Pulse Rate 99 H Respiratory 18 Rate Blood Pressure 182/128 O2 Sat by Pulse 99 Oximetry Physical Exam: GENERAL: The patient is well-developed well-nourished female sitting on stretcher in tears appearing to be in moderate discomfort. [] HEENT: Normocephalic. Atraumatic. Extraocular motions are intact. Patient has moist mucous membranes. NECK: Supple. Trachea midline CHEST/LUNGS: Clear to auscultation. There is no respiratory distress noted. HEART/CARDIOVASCULAR: Regular. There is no tachycardia. There is no gallop rub or murmur. ABDOMEN: Abdomen is soft, with moderate discomfort to palpation in the midepigastric, left upper quadrant, right upper quadrant and suprapubic region. Patient has normal bowel sounds. There is no abdominal distention. SKIN: There is no rash. There is no edema. There is no diaphoresis. NEURO: The patient is awake, alert, and oriented. The patient is cooperative. The patient has normal speech MUSCULOSKELETAL:There is no evidence of acute injury. ED Course Vital Signs 02/01/18 14:00 Temperature 98 F Pulse Rate 99 H Respiratory 18 Rate Blood Pressure 182/128 O2 Sat by Pulse 99 Oximetry - Reevaluation(s) Reevaluation #1: 02/01/18 17:51 Patient states she feels improved. Patient states her pain is decreased but is still present. Patient apparently gives her pain a score of 6/10. Will admit ED Medical Decision Making - Lab Data Result diagrams: 02/01/18 14:54 02/01/18 14:54 Laboratory Tests 02/01/18 02/01/18 02/01/18 14:48 14:54 14:54 WBC 9.1 RBC 4.94 Hgb 14.1 Hct 41.8 MCV 85 MCH 29 MCHC 34 RDW 13.4 Plt Count 304 Lymph % (Auto) 23.8 [place] % (Auto) 6.2 Eos % (Auto) 0.4 Baso % (Auto) 0.2 Lymph # 2.2 [place] # 0.6 Eos # 0.0 Baso # 0.0 Seg Neutrophils % 69.4 Seg Neutrophils # 6.3 VBG pH Sodium 130 L Potassium 3.4 L Chloride 86.3 L Carbon Dioxide 28 Anion Gap 19 BUN 17 Creatinine 0.5 L Estimated GFR > 60 BUN/Creatinine Ratio 34 Glucose 439 H POC Glucose 404 H Calcium 9.4 Total Bilirubin 2.40 H AST 21 ALT 11 Alkaline Phosphatase 74 Total Protein 8.5 H Albumin 4.5 Albumin/Globulin Ratio 1.1 Lipase 79 H HCG, Qual Urine Color Urine Turbidity Urine pH Ur Specific [place] Urine Protein Urine Glucose (UA) Urine Ketones Urine Blood Urine Nitrite Urine Bilirubin Urine Urobilinogen Ur Leukocyte Esterase Urine WBC (Auto) Urine RBC (Auto) U Epithel Cells (Auto) Hyaline Casts Urine Mucus 02/01/18 02/01/18 02/01/18 14:54 14:54 16:45 WBC RBC Hgb Hct MCV MCH MCHC RDW Plt Count Lymph % (Auto) [place] % (Auto) Eos % (Auto) Baso % (Auto) Lymph # [place] # Eos # Baso # Seg Neutrophils % Seg Neutrophils # VBG pH 7.453 H Sodium Potassium Chloride Carbon Dioxide Anion Gap BUN Creatinine Estimated GFR BUN/Creatinine Ratio Glucose POC Glucose Calcium Total Bilirubin AST ALT Alkaline Phosphatase Total Protein Albumin Albumin/Globulin Ratio Lipase HCG, Qual Negative Urine Color Yellow Urine Turbidity Clear Urine pH 5.0 Ur Specific [place] 1.032 H Urine Protein 100 mg/dl Urine Glucose (UA) >=500 Urine Ketones Tr Urine Blood Sm Urine Nitrite Neg Urine Bilirubin Neg Urine Urobilinogen < 2.0 Ur Leukocyte Esterase Neg Urine WBC (Auto) 5.0 Urine RBC (Auto) 5.0 U Epithel Cells (Auto) 2.0 Hyaline Casts 1 Urine Mucus Few 02/01/18 17:39 WBC RBC Hgb Hct MCV MCH MCHC RDW Plt Count Lymph % (Auto) [place] % (Auto) Eos % (Auto) Baso % (Auto) Lymph # [place] # Eos # Baso # Seg Neutrophils % Seg Neutrophils # VBG pH Sodium Potassium Chloride Carbon Dioxide Anion Gap BUN Creatinine Estimated GFR BUN/Creatinine Ratio Glucose POC Glucose 315 H Calcium Total Bilirubin AST ALT Alkaline Phosphatase Total Protein Albumin Albumin/Globulin Ratio Lipase HCG, Qual Urine Color Urine Turbidity Urine pH Ur Specific [place] Urine Protein Urine Glucose (UA) Urine Ketones Urine Blood Urine Nitrite Urine Bilirubin Urine Urobilinogen Ur Leukocyte Esterase Urine WBC (Auto) Urine RBC (Auto) U Epithel Cells (Auto) Hyaline Casts Urine Mucus - Radiology Data Radiology results: report reviewed (right upper quadrant ultrasound), image reviewed (right upper quadrant ultrasound) [facility] [address] [place] [address] Ultrasound Report Signed Patient: JAZZ JACOB MR#: [id number] : Acct:[id number] Age/Sex: 27 / F ADM Date: 02/01/18 Loc: ED Attending Dr: Ordering Physician: GINA SIMONS MD Date of Service: 02/01/18 Procedure(s): US abdomen limited Accession Number(s): [id number] cc: GINA SIMONS MD FINAL REPORT EXAM: US ABDOMEN LIMITED HISTORY: upper abdominal pain, elevated total bilirubin TECHNIQUE: Ultrasound examination of the abdomen PRIORS: None. FINDINGS: The visible portion of the following structures reveal: Liver: No focal lesion.No enlargement. Gallbladder: No pericholecystic fluid.No evidence of wall thickening.No calculus. Common bile duct: Normal caliber. Pancreas: No focal abnormality in the visible portion. Right kidney: No hydronephrosis.No solid mass.No definite calculus. Ascites: None Abdominal aorta: Normal caliber. IVC: Normal caliber. IMPRESSION: No evidence of acute pathology Transcribed By: BAL Dictated By: YONG KANG MD Electronically Authenticated By: YONG KANG MD Signed Date/Time: 02/01/181741 DD/ 41 TD/TT: 1741 - Differential Diagnosis pancreatitis, gastritis, biliary pancreatitis, cholelithiasis Critical care attestation.: If time is entered above; I have spent that time in minutes in the direct care of this critically ill patient, excluding procedure time. ED Disposition Clinical Impression: Acute abdominal pain, Acute pancreatitis Disposition: OP ADMIT IP TO THIS HOSP Is pt being admited?: Yes Does the pt Need Aspirin: No Condition: Fair Instructions: Abdominal Pain (ED) Referrals: PRIMARY CARE,MD [Primary Care Provider] - 3-5 Days Time of Disposition: 17:51 (hospitalist paged (Dr Jackson paged))
[2018-02-01 17:23] LABS: Bilirubin,Urine NEG (Negative); Blood,Urine SM (Negative); Color,Urine Yellow (Yellow); Hyaline Casts,Urine 1 /LPF; Mucus,Urine FEW /HPF; Urobilinogen,Urine < 2.0 mg/dL (<2.0)
--- NOTE | 2018-02-01 17:46 | Ultrasound Report ---
FINAL REPORT EXAM: US ABDOMEN LIMITED HISTORY: upper abdominal pain, elevated total bilirubin TECHNIQUE: Ultrasound examination of the abdomen PRIORS: None. FINDINGS: The visible portion of the following structures reveal: Liver: No focal lesion.No enlargement. Gallbladder: No pericholecystic fluid.No evidence of wall thickening.No calculus. Common bile duct: Normal caliber. Pancreas: No focal abnormality in the visible portion. Right kidney: No hydronephrosis.No solid mass.No definite calculus. Ascites: None Abdominal aorta: Normal caliber. IVC: Normal caliber. IMPRESSION: No evidence of acute pathology
--- NOTE | 2018-02-01 21:30 | History and Physical Report ---
History of Present Illness Date of examination: 02/01/18 Date of admission: 02/01/18 Chief complaint: Abdominal pain History of present illness: Patient is a 27-year-old lady who was a history of DM and hypertension presented to the emergency Department on account of dull epigastric pain. 7-8/ 10 in severity, aggravated by eating, relieved by rest. Has associated nausea and vomiting. Vomited twice. Vomitus was clear colored. Denies any hematemesis or melena. Has no fever. Had similar symptoms about a year ago was diagnosed with pancreatitis. Present symptoms were sudden in onset. No aggravating or relieving factor. Patient denies any alcohol ingestion. At emergency department patient was found to have a potassium of 3.4 and blood sugar 439. Total bilirubin was found to be elevated to 2.4. Liver enzymes where normal. At the time of this evaluation pain had subsided. Past History Past Medical History: diabetes, hypertension Past Surgical History: Social history: denies: smoking, alcohol abuse, prescription drug abuse Family history: diabetes, hypertension Medications and Allergies Allergies Allergy/AdvReac Type Severity Reaction Status Date / Time No Known Allergies Allergy Verified 02/01/18 14:39 Home Medications Medication Instructions Recorded Confirmed Last Taken Type Pnv,Calcium 72/Iron/Folic Acid 1 tab PO DAILY 08/19/16 09/06/16 08/16/16 10:00 History [Pnv Plus Multivit Tab] 1 tab Labetalol [Normodyne TAB] 200 mg PO BID #120 tablet 08/22/16 09/06/16 Unknown Rx amLODIPine [Norvasc] 10 mg PO DAILY #30 tab 08/22/16 09/06/16 Unknown Rx Metoclopramide [Reglan] 10 mg PO TID #30 tab 08/25/16 09/06/16 Unknown Rx Ondansetron [Zofran Odt] 8 mg PO Q8HR #30 tab.rapdis 08/25/16 09/06/16 Unknown Rx Ibuprofen [Motrin 600 MG tab] 600 mg PO Q8H PRN #30 tablet 09/06/16 Unknown Rx Multivitamin with Iron 1 each PO DAILY #30 tablet 09/06/16 Unknown Rx [Multivitamins with Iron] NIFEdipine XL [Procardia Xl] 30 mg PO QDAY #30 tablet 09/06/16 Unknown Rx oxyCODONE /ACETAMINOPHEN [Percocet 1 tab PO Q6HR PRN #30 tablet 09/06/16 Unknown Rx 5/325] Active Meds: Active Medications Enoxaparin Sodium (Lovenox) 40 mg SUB-Q QDAY@2200 LAURY Review of systems Constitutional: Well Nouridhed and Well developed. Head: NC/ AT Eyes: Denies any visual impairments. No discharge from the eyes Nose: Denies any rhinorrhea or epistaxis Throats: Denies any post nasal drainage. Ears: Denies any hearing deficits Cardiovascular system: Denies any chest pain, shortness of breath, orthopnea, paroxysmal nocturnal dyspnea, or palpitation. Respiratory system: Denies any cough, difficulty breathing, wheezing, pleuritic chest pain, Gastrointestinal system: Has epigastric abdominal pain, nausea vomiting. Denies hematemesis or melena. Neurological system: Denies any headache, slurred speech, facial droop, lateralizing weakness Genitalia system: Denies any dysuria, urinary frequency or urgency, urethral discharge Skin: No rashes, hyperpigmented spots. Hematological: Denies any cervical tenderness hemorrhages or petechia. Immunological: Denies any multiple septic spots, Lymphatic: Denies any generalized lymphadenopathy. Endocrine: Denies any polyuria, polydipsia, polyphagia. No heat or cold intolerance. Musculoskeletal system: No joint pain or swelling. Psych: No visual, tactile, auditory or hallucination Exam - Physical Exam Narrative exam: Constitutional: Well-nourished well-developed. In no distress Head: Normocephalic atraumatic Eyes: Pupils are equal round and reactive to light Nose: No enlarged turbinates, no septal deviation. Mouth: Moist mucous membranes. Neck: Supple no thyromegaly. No bruit. No JVD Heart: Regular rate and rhythm, S1-S2 abnormal. No rubs murmurs or gallop Lungs: Clear to auscultation bilaterally no rales or rhonchi Abdomen: Soft, nontender. Bowel sound are present. Extremities: No edema no cyanosis and no clubbing. Neuro: Alert oriented Oriented x3. No focal sensory or motor deficit. Skin: No rashes no hyperemic spots Psychiatry: Euthymic. Calm. - Constitutional Vitals: Temp Pulse Resp BP Pulse Ox 98.5 F 88 18 161/122 100 02/01/18 20:29 02/01/18 20:29 02/01/18 20:29 02/01/18 20:29 02/01/18 20:29 Results - Labs CBC & Chem 7: 02/01/18 14:54 02/01/18 14:54 Labs: Abnormal lab results 02/01/18 02/01/18 02/01/18 Range/Units 14:48 14:54 14:54 VBG pH 7.453 H (7.320-7.420) Sodium 130 L (137-145) mmol/L Potassium 3.4 L (3.6-5.0) mmol/L Chloride 86.3 L (98-107) mmol/L Creatinine 0.5 L (0.7-1.2) mg/dL Glucose 439 H (65-100) mg/dL POC Glucose 404 H (70-105) Total Bilirubin 2.40 H (0.1-1.2) mg/dL Total Protein 8.5 H (6.3-8.2) g/dL Lipase 79 H (13-60) units/L Ur Specific [place] (1.003-1.030) 02/01/18 02/01/18 Range/Units 16:45 17:39 VBG pH (7.320-7.420) Sodium (137-145) mmol/L Potassium (3.6-5.0) mmol/L Chloride (98-107) mmol/L Creatinine (0.7-1.2) mg/dL Glucose (65-100) mg/dL POC Glucose 315 H (70-105) Total Bilirubin (0.1-1.2) mg/dL Total Protein (6.3-8.2) g/dL Lipase (13-60) units/L Ur Specific [place] 1.032 H (1.003-1.030) Assessment and Plan Assessment Mild acute on chronic pancreatitis likely biliary Hyperbilirubinemia Uncontrolled diabetes mellitus, Hypertension Hyponatremia Hypokalemia Plan Admit to [facility] Lipase level Since pain has subsided will commence patient clear liquids Abdominal ultrasound reviewed. Findings unremarkable. We'll obtain an MRCP to further delineate the cause of hyperbilirubinemia really denies any biliary calculi Sliding scale insulin optimize for adequate glycemic control. Blood pressure control is from cousins". Supplement potassium IV hydration with normal saline Due to prophylaxis with Lovenox and GI Pepcid Spent 40 minutes during this admission process in direct patient care, review of laboratory and radiological data and explanation of management plan the patient. She expressed understanding.
[2018-02-01] MEDS ORDERED: D50W (25GM) Syringe IV PRN (22:24)
[2018-02-01] MEDS ORDERED: K-DUR PO NR (22:30)
[2018-02-01] MEDS ORDERED: APRESOLINE IV PRN ×2 (23:00)
[2018-02-01] MEDS ORDERED: LOVENOX SUB-Q ONE (23:02)
[2018-02-01] MEDS ORDERED: NORMODYNE ONE (23:02)
[2018-02-01] MEDS: LOVENOX SUB-Q SCH (23:09)
[2018-02-01] MEDS: NORMODYNE PO SCH (23:09)
[2018-02-02] MEDS ORDERED: ATIVAN IV NR (01:11)
[2018-02-02] MEDS: ALDACTONE PO SCH ×4 (01:39→21:44)
[2018-02-02] MEDS: HumaLOG SUB-Q SCH ×5 (01:51→21:39)
[2018-02-02 03:17] LABS: Chol/HDL Ratio 3.78 %
[2018-02-02 05:39] LABS: Basophils % (Auto) 0.4 % (0.0-1.8); Eosinophils # (Auto) 0.1 K/mm3 (0.0-0.4); Eosinophils % (Auto) 1.2 % (0.0-4.3); Hematocrit 38.2 % (30.3-42.9); Hemoglobin 12.9 gm/dl (10.1-14.3); Lymphocytes # (Auto) 3.5 K/mm3 (1.2-5.4); Lymphocytes % (Auto) 41.1 % (13.4-35.0); Mean Corpuscular HGB Conc 34 % (30-34); Mean Corpuscular Hemoglobin 28 pg (28-32); Mean Corpuscular Volume 84 fl (79-97); Monocytes # (Auto) 0.6 K/mm3 (0.0-0.8); Monocytes % (Auto) 6.5 % (0.0-7.3); Platelet Count 254 K/mm3 (140-440); Red Blood Count 4.55 M/mm3 (3.65-5.03); Red Cell Distribution Width 13.6 % (13.2-15.2)
[2018-02-02 06:06] LABS: Alanine Aminotransferase 9 units/L (7-56); Albumin 3.9 g/dL (3.9-5); BUN/Creatinine Ratio 17; Blood Urea Nitrogen 17 mg/dL (7-17); Calcium 9.1 mg/dL (8.4-10.2); Hemolysis Index 6
[2018-02-02] MEDS ORDERED: APRESOLINE IV PRN (09:01)
--- NOTE | 2018-02-02 09:02 | Progress Note ---
Assessment and Plan Assessment and plan: Acute pancreatitis. Keep NPO, iv fluids, Morphine iv prn For MRCP today GI consulted Diabetes mellitus type II. Fingerstick glucose Q6h Hypertension. Monitor BP. Continue Labetalol Hypokalemia. Recheck tomorrow. On Potassium containing iv fluid Hyponatremia. Now resolved DVT prophylaxis with Lovenox Full CODE STATUS History Interval history: Abdominal pain Hospitalist Physical - Physical exam Narrative exam: Gen : Not in acute distress,obese HEENT:Normocephalic, atraumatic Neck: supple, No JVD Lungs: Clear to auscultation, bilaterally, no rhonchi, no wheeze Heart :S1 and S2 reg, no murmurs, rubs or gallop Abd:soft, tender, no rebound tenderness, non distended, normal bowel sounds Ext: No edema, no clubbing, no cyanosis, Neuro: Awake,alert,oriented x 3, no focal signs Psych:normal mood - Constitutional Vitals: Temp Pulse Resp BP Pulse Ox 98.1 F 92 H 18 107/62 98 02/02/18 06:32 02/02/18 06:32 02/02/18 06:32 02/02/18 06:32 02/02/18 06:32 Results - Labs CBC & Chem 7: 02/02/18 04:26 02/02/18 04:26 Labs: Laboratory Last Values WBC 8.6 K/mm3 (4.5-11.0) 02/02/18 04:26 RBC 4.55 M/mm3 (3.65-5.03) 02/02/18 04:26 Hgb 12.9 gm/dl (10.1-14.3) 02/02/18 04:26 Hct 38.2 % (30.3-42.9) 02/02/18 04:26 MCV 84 fl (79-97) 02/02/18 04:26 MCH 28 pg (28-32) 02/02/18 04:26 MCHC 34 % (30-34) 02/02/18 04:26 RDW 13.6 % (13.2-15.2) 02/02/18 04:26 Plt Count 254 K/mm3 (140-440) 02/02/18 04:26 Lymph % (Auto) 41.1 % (13.4-35.0) H 02/02/18 04:26 [place] % (Auto) 6.5 % (0.0-7.3) 02/02/18 04:26 Eos % (Auto) 1.2 % (0.0-4.3) 02/02/18 04:26 Baso % (Auto) 0.4 % (0.0-1.8) 02/02/18 04:26 Lymph # 3.5 K/mm3 (1.2-5.4) 02/02/18 04:26 [place] # 0.6 K/mm3 (0.0-0.8) 02/02/18 04:26 Eos # 0.1 K/mm3 (0.0-0.4) 02/02/18 04:26 Baso # 0.0 K/mm3 (0.0-0.1) 02/02/18 04:26 Seg Neutrophils % 50.8 % (40.0-70.0) 02/02/18 04:26 Seg Neutrophils # 4.4 K/mm3 (1.8-7.7) 02/02/18 04:26 VBG pH 7.453 (7.320-7.420) H 02/01/18 14:54 Sodium 137 mmol/L (137-145) D 02/02/18 04:26 Potassium 3.1 mmol/L (3.6-5.0) L 02/02/18 04:26 Chloride 88.4 mmol/L (98-107) L 02/02/18 04:26 Carbon Dioxide 29 mmol/L (22-30) 02/02/18 04:26 Anion Gap 23 mmol/L 02/02/18 04:26 BUN 17 mg/dL (7-17) 02/02/18 04:26 Creatinine 1.0 mg/dL (0.7-1.2) D 02/02/18 04:26 Estimated GFR > 60 ml/min 02/02/18 04:26 BUN/Creatinine Ratio 17 % 02/02/18 04:26 Glucose 310 mg/dL (65-100) H 02/02/18 04:26 POC Glucose 244 (70-105) H 02/02/18 07:39 Hemoglobin A1c 10.9 % (4-6) H 02/01/18 14:54 Calcium 9.1 mg/dL (8.4-10.2) 02/02/18 04:26 Phosphorus 3.40 mg/dL (2.5-4.5) 02/02/18 04:26 Magnesium 2.00 mg/dL (1.7-2.3) 02/02/18 04:26 Total Bilirubin 1.60 mg/dL (0.1-1.2) H 02/02/18 04:26 AST 13 units/L (5-40) 02/02/18 04:26 ALT 9 units/L (7-56) 02/02/18 04:26 Alkaline Phosphatase 65 units/L (35-129) 02/02/18 04:26 Total Protein 6.7 g/dL (6.3-8.2) D 02/02/18 04:26 Albumin 3.9 g/dL (3.9-5) 02/02/18 04:26 Albumin/Globulin Ratio 1.4 % 02/02/18 04:26 Triglycerides 135 mg/dL (2-149) 02/01/18 23:22 Cholesterol 189 mg/dL (50-199) 02/01/18 23:22 LDL Cholesterol Direct 126 mg/dL (50-130) 02/01/18 23:22 HDL Cholesterol 50 mg/dL (40-59) 02/01/18 23:22 Cholesterol/HDL Ratio 3.78 % 02/01/18 23:22 Lipase 88 units/L (13-60) H 02/01/18 23:22 HCG, Qual Negative (Negative) 02/01/18 14:54 Urine Color Yellow (Yellow) 02/01/18 16:45 Urine Turbidity Clear (Clear) 02/01/18 16:45 Urine pH 5.0 (5.0-7.0) 02/01/18 16:45 Ur Specific [place] 1.032 (1.003-1.030) H 02/01/18 16:45 Urine Protein 100 mg/dl mg/dL (Negative) 02/01/18 16:45 Urine Glucose (UA) >=500 mg/dL (Negative) 02/01/18 16:45 Urine Ketones Tr mg/dL (Negative) 02/01/18 16:45 Urine Blood Sm (Negative) 02/01/18 16:45 Urine Nitrite Neg (Negative) 02/01/18 16:45 Urine Bilirubin Neg (Negative) 02/01/18 16:45 Urine Urobilinogen < 2.0 mg/dL (<2.0) 02/01/18 16:45 Ur Leukocyte Esterase Neg (Negative) 02/01/18 16:45 Urine WBC (Auto) 5.0 /HPF (0.0-6.0) 02/01/18 16:45 Urine RBC (Auto) 5.0 /HPF (0.0-6.0) 02/01/18 16:45 U Epithel Cells (Auto) 2.0 /HPF (0-13.0) 02/01/18 16:45 Hyaline Casts 1 /LPF 02/01/18 16:45 Urine Mucus Few /HPF 02/01/18 16:45
[2018-02-02] MEDS ORDERED: IRON PO SCH (10:00)
[2018-02-02] MEDS ORDERED: PNV CALCIUM PO SCH (10:00)
[2018-02-02] MEDS ORDERED: NON-FORMULARY (Multivitamin With Iron [Multivitamins With Iron] 1 EACH) PO SCH (10:00)
[2018-02-02] MEDS ORDERED: FOLIC ACID PO SCH (10:00)
[2018-02-02] MEDS: NS/KCL 20MEQ 20 MEQ/1,000 ML BAG IV SCH (11:28)
[2018-02-02] MEDS: THERAGRAN-M Tab PO SCH (11:29)
[2018-02-02] MEDS: NORVASC PO SCH ×2 (11:29→18:46)
[2018-02-02] MEDS: NORMODYNE PO SCH ×3 (11:30→21:42)
--- NOTE | 2018-02-02 14:51 | Magnetic Resonance Report ---
FINAL REPORT EXAM: MR ABDOMEN MRCP HISTORY: hyperbilirubinemia TECHNIQUE: Multiplanar multisequence abdomen MR imaging. 2-D and 3-D MRCP reconstructions of the biliary tree. PRIORS: Abdomen ultrasound 02/01/2018 FINDINGS: Normal-appearing liver, adrenals, pancreas, and spleen. Intact normal caliber abdominal aorta and IVC. Normal-appearing kidneys. No evidence of upper abdominal ascites. No intestinal distention. The gallbladder is without distention, wall thickening, or pericholecystic fluid. On several sequences, there is suggestion of a small filling defect in the gallbladder neck measuring 4.6 mm in size. This is noted on series 3, image 8 and series 7, image 48, as well as series 700, image 13 and series 701, image 13. Normal caliber common bile duct and pancreatic duct. The common bile duct diameter 3.4 mm. No common bile duct filling defect to suggest nodule or stone. No intrahepatic biliary distention. IMPRESSION: Nonspecific small filling defect suggested in gallbladder neck is 4.6 mm in size. This may be a small gallbladder polyp or calculus.
--- NOTE | 2018-02-02 19:04 | Gastroenterology Consultation ---
History of Present Illness - Reason for Consult Consult date: 02/02/18 abdominal pain, elevated total bilirubin Requesting physician: PAUL COLLAZO - History of Present Illness The patient is a 27-year-old female with long-standing diabetes mellitus now admitted with recurrent abdominal pain. She reports that her abdominal pain and nausea has completely resolved and she had a hamburger from home which she tolerated without difficulty. She gives a history of having pancreatitis in 2016 and being hospitalized here although records do not reflect specialization in that year. She did have a mildly elevated lipase of 214 and 2017 with minimal elevation of the amylase at that time. She is felt to have diabetic gastroparesis although does not recall having an endoscopy in the past. Her amylase and lipase are normal this admission and she was found to have a total bilirubin of 2.4 on 1 assay. The indirect fraction was not measured. No history of weight loss hematemesis melena or rectal bleeding. Workup thus far reveals no stones in the gallbladder on ultrasound and an MR revealing no dilated bile ducts and no filling defects to suggest choledocholithiasis. Past History Past Medical History: diabetes, hypertension Past Surgical History: Social history: denies: smoking, alcohol abuse, prescription drug abuse Family history: diabetes, hypertension Medications and Allergies Allergies Allergy/AdvReac Type Severity Reaction Status Date / Time No Known Allergies Allergy Verified 02/01/18 14:39 Home Medications Medication Instructions Recorded Confirmed Last Taken Type Pnv,Calcium 72/Iron/Folic Acid 1 tab PO DAILY 08/19/16 02/02/18 1 Year Ago History [Pnv Plus Multivit Tab] ~02/02/17 Labetalol [Normodyne TAB] 200 mg PO BID #120 tablet 08/22/16 02/02/18 1 Day Ago Rx ~02/01/18 amLODIPine [Norvasc] 10 mg PO DAILY #30 tab 08/22/16 02/02/18 3 Months Ago Rx ~11/03/17 5 Metoclopramide [Reglan] 10 mg PO TID #30 tab 08/25/16 02/02/18 1 Day Ago Rx ~02/01/18 oxyCODONE /ACETAMINOPHEN [Percocet 1 tab PO Q6HR PRN #30 tablet 09/06/1610/28/17 09:00 Rx 5/325] 5 Insulin Regular, Human 10 units SQ QDAY 02/02/18 02/02/18 3 Days Ago History ~01/30/18 Lispro Insulin [Humalog] 10 unit SQ QDAY 02/02/18 02/02/18 3 Days Ago History ~01/30/18 Active Meds: Active Medications Amlodipine Besylate (Norvasc) 10 mg PO DAILY [facility] Last Admin: 02/02/18 18:46 Dose: 10 mg Dextrose (D50w (25gm) Syringe) 50 ml IV PRN PRN PRN Reason: Hypoglycemia Enoxaparin Sodium (Lovenox) 40 mg SUB-Q QDAY@2200 [facility] Last Admin: 02/01/18 23:09 Dose: 40 mg Hydralazine HCl (Apresoline) 10 mg IV Q8H PRN PRN Reason: SBP>160 Potassium Chloride/Sodium Chloride (Ns/Kcl 20meq) 20 meq in 1,000 mls @ 100 mls /hr IV DIRECT [facility] Last Admin: 02/02/18 11:28 Dose: 100 mls/hr Insulin Human Lispro (Humalog) 0 unit SUB-Q [facility]; Protocol Last Admin: 02/02/18 18:43 Dose: 4 unit Labetalol HCl (Normodyne) 200 mg PO BID [facility] Last Admin: 02/02/18 18:48 Dose: 200 mg Morphine Sulfate (Morphine) 2 mg IV Q4H PRN PRN Reason: Pain, Moderate (4-6) Multivitamins/Minerals (Theragran-M Tab) 1 each PO QDAY [facility] Last Admin: 02/02/18 11:29 Dose: 1 each Spironolactone (Aldactone) 50 mg PO BID [facility] Last Admin: 02/02/18 18:47 Dose: 50 mg Review of Systems - Review of Systems Constitutional: no weight loss, no weight gain, no fever, no chills Ears, Nose, Throat: no decreased hearing, no difficulty swallowing Breasts: deferred Cardiovascular: no chest pain, no rapid/irregular heart beat, no shortness of breath Respiratory: no shortness of breath Gastrointestinal: abdominal pain, nausea, vomiting, no melena, no hematochezia Rectal: no pain Female Genitourinary: deferred Musculoskeletal: no gait dysfunction, no joint pain, no muscle pain Neurological: no paralysis, no weakness Hematologic/Lymphatic: no easy bruising, no easy bleeding Allergic/Immunologic: no wheezing Exam - Constitutional Vital Signs: Temp Pulse Resp BP Pulse Ox 98.1 F 89 19 141/105 99 02/02/18 18:14 02/02/18 11:20 02/02/18 18:14 02/02/18 18:46 02/02/18 11:20 General appearance: no acute distress, well-nourished, obese - EENT Eyes: PERRL ENT: hearing intact, clear oral mucosa, dentition normal - Neck Neck: supple, normal ROM, no masses or JVD - Respiratory Respiratory effort: normal Respiratory: bilateral: CTA - Breasts Breasts: deferred - Cardiovascular Rhythm: regular Heart Sounds: Present: S1 & S2. Absent: gallop, rub Extremities: pulses intact, No edema, normal color, Full ROM - Gastrointestinal General gastrointestinal: Present: soft, non-tender, non-distended, normal bowel sounds. Absent: hepatomegaly, splenomegaly, mass Rectal Exam: deferred - Genitourinary Female Genitourinary: deferred - Integumentary Integumentary: Present: clear, warm, dry - Neurologic Neurological: alert and oriented x3 - Psychiatric Psychiatric: appropriate mood/affect, intact judgment & insight, memory intact - Labs CBC & Chem 7: 02/02/18 04:26 02/02/18 04:26 Lab Results: Laboratory Results - last 24 hr 02/01/18 02/01/18 02/01/18 14:54 23:04 23:22 WBC RBC Hgb Hct MCV MCH MCHC RDW Plt Count Lymph % (Auto) Centre % (Auto) Eos % (Auto) Baso % (Auto) Lymph # Centre # Eos # Baso # Seg Neutrophils % Seg Neutrophils # Sodium Potassium Chloride Carbon Dioxide Anion Gap BUN Creatinine Estimated GFR BUN/Creatinine Ratio Glucose POC Glucose 252 H Hemoglobin A1c 10.9 H Calcium Phosphorus Magnesium Total Bilirubin AST ALT Alkaline Phosphatase Total Protein Albumin Albumin/Globulin Ratio Triglycerides 135 Cholesterol 189 LDL Cholesterol Direct 126 HDL Cholesterol 50 Cholesterol/HDL Ratio 3.78 Lipase 02/01/18 02/02/18 02/02/18 23:22 00:42 04:26 WBC 8.6 RBC 4.55 Hgb 12.9 Hct 38.2 MCV 84 MCH 28 MCHC 34 RDW 13.6 Plt Count 254 Lymph % (Auto) 41.1 H Centre % (Auto) 6.5 Eos % (Auto) 1.2 Baso % (Auto) 0.4 Lymph # 3.5 Centre # 0.6 Eos # 0.1 Baso # 0.0 Seg Neutrophils % 50.8 Seg Neutrophils # 4.4 Sodium Potassium Chloride Carbon Dioxide Anion Gap BUN Creatinine Estimated GFR BUN/Creatinine Ratio Glucose POC Glucose 251 H Hemoglobin A1c Calcium Phosphorus Magnesium Total Bilirubin AST ALT Alkaline Phosphatase Total Protein Albumin Albumin/Globulin Ratio Triglycerides Cholesterol LDL Cholesterol Direct HDL Cholesterol Cholesterol/HDL Ratio Lipase 88 H 02/02/18 02/02/18 02/02/18 04:26 04:26 07:39 WBC RBC Hgb Hct MCV MCH MCHC RDW Plt Count Lymph % (Auto) Centre % (Auto) Eos % (Auto) Baso % (Auto) Lymph # Centre # Eos # Baso # Seg Neutrophils % Seg Neutrophils # Sodium 137 D Potassium 3.1 L Chloride 88.4 L Carbon Dioxide 29 Anion Gap 23 BUN 17 Creatinine 1.0 D Estimated GFR > 60 BUN/Creatinine Ratio 17 Glucose 310 H POC Glucose 244 H Hemoglobin A1c Calcium 9.1 Phosphorus 3.40 Magnesium 2.00 Total Bilirubin 1.60 H AST 13 ALT 9 Alkaline Phosphatase 65 Total Protein 6.7 D Albumin 3.9 Albumin/Globulin Ratio 1.4 Triglycerides Cholesterol LDL Cholesterol Direct HDL Cholesterol Cholesterol/HDL Ratio Lipase 87 H 02/02/18 02/02/18 13:16 17:05 WBC RBC Hgb Hct MCV MCH MCHC RDW Plt Count Lymph % (Auto) Centre % (Auto) Eos % (Auto) Baso % (Auto) Lymph # Centre # Eos # Baso # Seg Neutrophils % Seg Neutrophils # Sodium Potassium Chloride Carbon Dioxide Anion Gap BUN Creatinine Estimated GFR BUN/Creatinine Ratio Glucose POC Glucose 223 H 219 H Hemoglobin A1c Calcium Phosphorus Magnesium Total Bilirubin AST ALT Alkaline Phosphatase Total Protein Albumin Albumin/Globulin Ratio Triglycerides Cholesterol LDL Cholesterol Direct HDL Cholesterol Cholesterol/HDL Ratio Lipase Assessment and Plan - Patient Problems (1) Acute abdominal pain Current Visit: Yes Status: Acute Plan to address problem: Abdominal pain has completely resolved and she is tolerating a solid diet without difficulty. She ate a hamburger today. An outpatient endoscopy is advisable to assess for possible peptic disease and further evaluate for possible gastroparesis. The patient may go home from my standpoint. (2) IDDM (insulin dependent diabetes mellitus) Current Visit: No Status: Chronic (3) Hyperbilirubinemia Current Visit: Yes Status: Acute Plan to address problem: I suspect this may Gilbert's syndrome, a benign disorder. Will order fractionated bilirubin which will sort this out. She does not have evidence of acute pancreatitis or biliary obstruction. This may be followed up as an outpatient as well.
[2018-02-02 20:05] LABS: Bilirubin,Direct 0.2 mg/dL (0-0.2)
[2018-02-02] MEDS: LOVENOX SUB-Q SCH (21:41)
[2018-02-02] MEDS: MORPHINE IV PRN (22:01)
[2018-02-03] MEDS: MORPHINE IV PRN (02:59)
[2018-02-03] MEDS: NS/KCL 20MEQ 20 MEQ/1,000 ML BAG IV SCH (06:55)
--- NOTE | 2018-02-03 08:21 | Discharge Summary ---
Providers - Providers Date of Admission: 02/01/18 21:22 Date of discharge: 02/03/18 Attending physician: LUCILLE BAIN 02/01/18 22:24 Consult to Physician [CONS] Routine Comment: Consulting Provider: COURTNEY AGUILERA Physician Instructions: Reason For Exam: hyperbilirubinemia Primary care physician: ACADEMIC ADVISER Hospitalization Condition: Fair Disposition: DC-01 TO HOME OR SELFCARE Core Measure Documentation - Palliative Care Palliative Care/ Comfort Measures: Not Applicable - Core Measures Any of the following diagnoses?: none Exam - Constitutional Vitals: Temp Pulse Resp BP Pulse Ox 98.2 F 84 20 120/71 99 02/03/18 04:21 02/03/18 04:22 02/03/18 04:21 02/03/18 04:21 02/03/18 04:22 Plan Activity: no restrictions Diet: low fat, low cholesterol, low salt, diabetic Additional Instructions: 1.Follow up with PCP or [facility] in 1 week. 2.Follow up with Dr. Aguilera GI in 1 week Follow up with: PRIMARY CAREMD [Primary Care Provider] - 3-5 Days
[2018-02-03 08:42] LABS: BUN/Creatinine Ratio 23; Blood Urea Nitrogen 16 mg/dL (7-17); Calcium 8.9 mg/dL (8.4-10.2); Hemolysis Index 9
[2018-02-03] MEDS: HumaLOG SUB-Q SCH (08:52)
[2018-02-03] MEDS: NORVASC PO SCH (09:55)
[2018-02-03] MEDS: NORMODYNE PO SCH (09:55)
[2018-02-03] MEDS: ALDACTONE PO SCH (09:55)
[2018-02-03] MEDS: THERAGRAN-M Tab PO SCH (09:55)
[2018-02-03 09:56] VITALS: BP 130/76
== END 2018-02-03 12:28 | disposition home or self-care (01) | DRG 439 ==
LOC: ED 13:53 → 3A 21:22
PROVIDERS: ADMIT Family Medicine; ATTEND Internal Medicine
DX: K85.90 Acute pancreatitis without necrosis or infection, unspecified (principal); E87.1 Hypo-osmolality and hyponatremia; E11.9 Type 2 diabetes mellitus without complications; I10 Essential (primary) hypertension; E80.6 Other disorders of bilirubin metabolism; K86.1 Other chronic pancreatitis; E87.6 Hypokalemia; Z83.3 Family history of diabetes mellitus; Z82.49 Family history of ischemic heart disease and other diseases of the circulatory system; Z79.899 Other long term (current) drug therapy; Z79.4 Long term (current) use of insulin
CPT/HCPCS: 36415; 74181; 76705; 80048; 80053; 80061; 81001; 82248; 82805; 82962; 83036; 83690; 83735; 84100; 84703; 85025; 87116; 96361; 96374; 96375; J0360; J1650; J1815; J2060; J2270; J2405; J3010; J7030